=== PATIENT | female | born 1975 ===

== ENCOUNTER 2020-03-16 11:37 | Outpatient (REF) | payer OTHER, SELFPAY ==
--- NOTE | 2020-03-16 | US_ITS ---
EXAMINATION: US PELVIC, LIMITED/FOLLOW UP CLINICAL INFORMATION: Palpable lump epigastric/supraumbilical region. History of previous abdominoplasty procedure. COMPARISON: None TECHNIQUE: Grayscale and color imaging of the abdominal wall superior to inferior to the umbilicus using a linear and curved transducer. FINDINGS: No hernia is evident by ultrasound. No fluid collection is seen. There is irregularly-shaped hypoechoic soft tissue in the subcutaneous fat questionable for postsurgical changes. IMPRESSION: No hernia or fluid collection seen.
== END 2020-03-16 11:38 | disposition home or self-care (01) ==
LOC: HO.US 11:37
PROVIDERS: Visit Provider Internal Medicine
DX: K42.9 Umbilical hernia without obstruction or gangrene (principal)
CPT/HCPCS: 76857

== ENCOUNTER 2020-05-27 13:08 | Outpatient (REF) | payer OTHER, SELFPAY ==
--- NOTE | 2020-05-27 13:11 | CT_ITS ---
EXAMINATION: CT HEAD WITHOUT CONTRAST CLINICAL INFORMATION: Headaches. COMPARISON: Head CT from 07/21/2012. TECHNIQUE: Contiguous axial imaging was performed from the skull base to vertex without intravenous administration of contrast. This CT examination was performed using dose optimization techniques as appropriate, variously including the following: *Automated exposure control *Adjustment of mA and/or kV according to patient size (this includes techniques or standardized protocols for targeted exams where dose is matched to indication/reason for exam; i.e. extremities or head) *Use of iterative reconstruction technique DLP: 829 mGy-cm FINDINGS: There is no evidence of acute intracranial hemorrhage or territorial infarction. No abnormal mass effect or midline shift is seen. Lipscomb to white matter differentiation is well preserved. No extra-axial fluid collections are identified. The ventricles are normal in size. There is no abnormal attenuation within the brain parenchyma. The osseous structures and soft tissues are normal. The mastoid air cells are well aerated. There is minimal mucosal thickening in the left maxillary sinus. CT/CT head/brain wo con IMPRESSION: No acute intracranial pathology.
== END 2020-05-27 13:09 | disposition home or self-care (01) ==
LOC: HO.CT 13:08
PROVIDERS: Visit Provider Physician Assistant
DX: R51.9 Headache, unspecified (principal)
CPT/HCPCS: 70450

== ENCOUNTER 2020-07-15 15:02 | Outpatient (REF) | payer OTHER, SELFPAY ==
--- NOTE | ~2020-07-15 | MM_ITS ---
EXAMINATION: MM SCREENING DIGITAL BREAST TOMOSYNTHESIS, BILATERAL CLINICAL INFORMATION: Screening. Asymptomatic. The lifetime risk of breast cancer based on the Tyrer-Cuzick Model is 9%. COMPARISON: Mammography: 04/25/2019, 04/23/2018 TECHNIQUE: Digital breast tomosynthesis is performed in both the craniocaudal and mediolateral oblique views along with computer-aided detection (CAD). Synthesized 2D images are generated from the tomosynthesis. FINDINGS: There are scattered areas of fibroglandular density (ACR BI-RADS breast composition Category b). There is denser breast tissue composition in the bilateral outer quadrants. Scattered bilateral parenchymal asymmetries are stable. There is no developing density or interval mass or architectural abnormality. No abnormal calcifications. The axilla and skin contours are unremarkable. MM/MM tomosynthesis screening BI IMPRESSION: No mammographic evidence of malignancy. ASSESSMENT: BI-RADS 2: Benign RECOMMENDATION: Routine annual mammography screening. This patient's information was entered into a reminder system with a target due date for their next mammogram.
== END 2020-07-15 15:03 | disposition home or self-care (01) ==
LOC: HO.MAMMO 15:02
PROVIDERS: PCP Physician Assistant; Visit Provider Physician Assistant
DX: Z12.31 Encounter for screening mammogram for malignant neoplasm of breast (principal)
CPT/HCPCS: 77063; 77067

== ENCOUNTER 2020-12-07 10:12 | Outpatient (REF) | payer OTHER, SELFPAY ==
--- NOTE | ~2020-12-07 | US_ITS ---
EXAMINATION: US ABDOMEN COMPLETE CLINICAL INFORMATION: Cholesterolosis of the gallbladder. COMPARISON: Ultrasound abdomen most recent 01/13/2020 and 11/07/2018. TECHNIQUE: Real-time imaging of the abdominal viscera. FINDINGS: PANCREAS: Normal. ABDOMINAL AORTA: The proximal, mid, and distal segments are normal in caliber. INFERIOR VENA CAVA: Visualized portions are normal. LIVER: Liver echotexture is increased probably representing fatty infiltration. The liver is normal in size. The liver contour is normal. No focal hepatic lesion. There is no intrahepatic biliary duct dilatation seen. GALLBLADDER: There is a small 4 x 3 x 3 mm echogenic density adjacent to the gallbladder wall that does not shadow suggestive of a small polyp. This is similar to previous exams. The gallbladder is otherwise normal. COMMON BILE DUCT: Normal in caliber measuring 0.28 cm in diameter. RIGHT KIDNEY: Normal. No hydronephrosis. No renal calculi or focal parenchymal lesions. The kidney measures 12.5 cm in maximum dimension. LEFT KIDNEY: Normal. No hydronephrosis. No renal calculi or focal parenchymal lesions. The kidney measures 12.0 cm in maximum dimension. SPLEEN: Normal. The spleen measures 11.7 cm in maximum dimension. FREE FLUID: None. US/US abdomen complete IMPRESSION: Echogenic liver probably representing fatty infiltration. Stable small 4 mm gallbladder wall polyp.
== END 2020-12-07 10:13 | disposition home or self-care (01) ==
LOC: HO.HMGCX 10:12
PROVIDERS: PCP Internal Medicine; Visit Provider Surgery
DX: K82.4 Cholesterolosis of gallbladder (principal)
CPT/HCPCS: 76700

== ENCOUNTER 2021-02-08 14:13 | Outpatient (REF) | payer OTHER, SELFPAY ==
[2021-02-08 14:46] LABS: Appearance Urine CLEAR; Color Urine YELLOW; Glucose Urine UA NEG (NEG); Leukocyte Esterase Urine NEG (NEG); Nitrite Urine NEG (NEG); Urine Blood NEG (NEG); Urine Ketones NEG (NEG); Urine Protein NEG (NEG-TRACE)
== END 2021-02-08 14:14 | disposition home or self-care (01) ==
LOC: HO.LAB 14:13
PROVIDERS: PCP Physician Assistant; Visit Provider Internal Medicine
DX: R35.0 Frequency of micturition (principal)
CPT/HCPCS: 81003

== ENCOUNTER 2021-02-16 13:57 | Outpatient (REF) | payer OTHER, SELFPAY ==
[2021-02-16 14:55] LABS: Appearance Urine CLEAR; Color Urine YELLOW; Glucose Urine UA NEG (NEG); Leukocyte Esterase Urine NEG (NEG); Nitrite Urine NEG (NEG); PH 5.5 (5.0-8.0); Specific Gravity - Urine 1.025 (1.005-1.025); Urine Blood NEG (NEG); Urine Ketones NEG (NEG); Urine Protein NEG (NEG-TRACE)
== END 2021-02-16 13:58 | disposition home or self-care (01) ==
LOC: HO.LAB 13:57
PROVIDERS: PCP Physician Assistant; Visit Provider Physician Assistant
DX: R30.0 Dysuria (principal); N39.0 Urinary tract infection, site not specified
CPT/HCPCS: 81003; 87086

== ENCOUNTER 2021-02-18 17:24 | Outpatient (REF) | payer OTHER, SELFPAY ==
[2021-02-19 15:24] LABS: BV Int Neg Control Negative (Negative); BV Int Pos Control Positive (Positive)
== END 2021-02-18 17:25 | disposition home or self-care (01) ==
LOC: HO.LNP 17:24
PROVIDERS: Visit Provider Nurse Practitioner Family
DX: N94.9 Unspecified condition associated with female genital organs and menstrual cycle (principal)
CPT/HCPCS: 87480; 87510; 87660

== ENCOUNTER 2021-03-15 08:36 | Outpatient (REF) | payer OTHER, SELFPAY ==
[2021-03-16 13:54] LABS: CT PCR NOT DETECTED (Not Detect.); NG PCR NOT DETECTED (Not Detect.)
[2021-03-17 09:04] LABS: BV Int Neg Control Negative (Negative); BV Int Pos Control Positive (Positive)
[2021-03-19 01:36] LABS: HPV mRNA E6/E7 rflx Not Detected (Not Detected)
== END 2021-03-15 08:37 | disposition home or self-care (01) ==
LOC: HO.LAB 08:36
PROVIDERS: PCP Internal Medicine; Visit Provider Advanced Practice Midwife
DX: Z01.419 Encounter for gynecological examination (general) (routine) without abnormal findings (principal); Z11.3 Encounter for screening for infections with a predominantly sexual mode of transmission; Z11.51 Encounter for screening for human papillomavirus (HPV); Z20.2 Contact with and (suspected) exposure to infections with a predominantly sexual mode of transmission; N94.9 Unspecified condition associated with female genital organs and menstrual cycle; R35.0 Frequency of micturition
CPT/HCPCS: 87480; 87491; 87510; 87591; 87624; 87660; 88142

== ENCOUNTER 2021-07-29 15:35 | Outpatient (REF) | payer OTHER, SELFPAY ==
--- NOTE | ~2021-07-29 | MM_ITS ---
EXAMINATION: MM SCREENING DIGITAL BREAST TOMOSYNTHESIS, BILATERAL CLINICAL INFORMATION: Screening. Asymptomatic. The lifetime risk of breast cancer based on the Tyrer-Cuzick Model is 9%. COMPARISON: Mammography: 07/15/2020, 04/25/2019, 04/23/2018 (new baseline). TECHNIQUE: Digital breast tomosynthesis is performed in both the craniocaudal and mediolateral oblique views along with computer-aided detection (CAD). Synthesized 2D images are generated from the tomosynthesis. Additional right MLO view is provided. FINDINGS: There are scattered areas of fibroglandular density (ACR BI-RADS breast composition Category b). There are no significant masses, abnormal calcifications, or other abnormalities. Breast tissue composition borders on heterogeneously dense in the upper outer quadrants. Parenchymal pattern is similar to prior studies. There is no developing density or architectural abnormality. The axilla and skin contours are unremarkable. No significant changes. MM/MM tomosynthesis screening BI IMPRESSION: No mammographic evidence of malignancy. ASSESSMENT: BI-RADS 1: Negative RECOMMENDATION: Routine annual mammography screening. This patient's information was entered into a reminder system with a target due date for their next mammogram.
== END 2021-07-29 15:36 | disposition home or self-care (01) ==
LOC: HO.MAMMO 15:35
PROVIDERS: PCP Physician Assistant; Visit Provider Physician Assistant
DX: Z12.31 Encounter for screening mammogram for malignant neoplasm of breast (principal)
CPT/HCPCS: 77063; 77067

== ENCOUNTER 2021-11-07 09:26 | Outpatient (REF) | payer OTHER, SELFPAY ==
--- NOTE | ~2021-11-07 | US_ITS ---
EXAMINATION: US ABDOMEN COMPLETE CLINICAL INFORMATION: Unspecified abdominal pain. COMPARISON: Ultrasound abdomen complete 12/07/2020 and 01/13/2020. TECHNIQUE: Real-time imaging of the abdominal viscera. FINDINGS: PANCREAS: Head and body the pancreas are normal. The tail is not well visualized due to bowel gas. ABDOMINAL AORTA: The proximal, mid, and distal segments are normal in caliber. INFERIOR VENA CAVA: Visualized portions are normal. LIVER: The liver is normal in size. The liver contour is normal. Liver echotexture is increased. No focal hepatic lesion. There is no intrahepatic biliary duct dilatation seen. GALLBLADDER: The gallbladder is normal in size. There is a 3 mm echogenic density adjacent to the gallbladder wall that does not move or shadow suggestive of a gallbladder wall polyp. This is unchanged No definite stones are seen. The gallbladder wall is normal. COMMON BILE DUCT: Normal in caliber measuring 0.3 cm in diameter. RIGHT KIDNEY: Normal. No hydronephrosis. No renal calculi or focal parenchymal lesions. The kidney measures 12.0 cm in maximum dimension. LEFT KIDNEY: Normal. No hydronephrosis. No renal calculi or focal parenchymal lesions. The kidney measures 12.0 cm in maximum dimension. SPLEEN: Normal. The spleen measures 12.0 cm in maximum dimension. FREE FLUID: None. US/US abdomen complete IMPRESSION: Echogenic liver suggestive of fatty infiltration. Stable small gallbladder wall polyp
[2021-11-07 10:49] LABS: Cholesterol 183 mg/dL; HDL Cholesterol 49 mg/dL; LDL Cholesterol Calculated 116 mg/dl; Triglycerides 90 mg/dL
[2021-11-07 11:13] LABS: TSH reflex Free T4 2.28 uIU/mL (0.32-4.0)
== END 2021-11-07 09:27 | disposition home or self-care (01) ==
LOC: HO.US 09:26
PROVIDERS: Absent Provider Nurse Practitioner Family; PCP Physician Assistant; Visit Provider Physician Assistant
DX: Z13.220 Encounter for screening for lipoid disorders (principal); Z13.29 Encounter for screening for other suspected endocrine disorder; R10.9 Unspecified abdominal pain
CPT/HCPCS: 36415; 76700; 80061; 84443

== ENCOUNTER → 2021-12-29 15:04 | Outpatient (BNVA) | payer OTHER, SELFPAY | PROVIDERS: PCP Physician Assistant | DX: R35.0 Frequency of micturition (principal); R80.9 Proteinuria, unspecified | CPT/HCPCS: 51798; 99202 ==

== ENCOUNTER 2022-03-31 09:42 | Outpatient (REF) | payer OTHER, SELFPAY ==
[2022-03-31 10:45] LABS: Estimated Average Glucose 123 mg/dL; Hemoglobin A1c % 5.9 %
[2022-03-31 10:45] LABS: Appearance Urine Hazy; Color Urine Yellow; Glucose Urine UA Negative (Negative); Leukocyte Esterase Urine Negative (Negative); Nitrite Urine Negative (Negative); Specific Gravity - Urine 1.025 (1.005-1.025); Urine Blood Negative (Negative); Urine Ketones Negative (Negative); Urine Protein Negative (Neg-Trace)
[2022-03-31 11:15] LABS: Creatinine Urine 101.25 mg/dL; Microalbum/Creatinine Ratio Ur 5.9 ug/mg cr; Total Protein Urine Random < 7 mg/dL (<12)
[2022-03-31 11:17] LABS: Alanine Aminotransferase 25 U/L (0-31); Albumin Level 4.4 g/dL (3.5-5.0); Alkaline Phosphatase 70 U/L (39-117); Aspartate Amino Transferase 18 U/L (5-31); Bilirubin Direct < 0.2 mg/dL (0.0-0.5); Bilirubin Total 0.4 mg/dL (0.0-1.0); Total Protein 7.2 g/dL (6.5-8.0)
[2022-03-31 11:18] LABS: Alanine Aminotransferase 25 U/L (0-31); Albumin Level 4.4 g/dL (3.5-5.0); Alkaline Phosphatase 69 U/L (39-117); Anion Gap 17 (12-20); Aspartate Amino Transferase 18 U/L (5-31); Bilirubin Total 0.4 mg/dL (0.0-1.0); Blood Urea Nitrogen 11 mg/dL (9-16); Calcium 9.3 mg/dL (8.4-10.2); Carbon Dioxide 24 mmol/L (22-29); Chloride 103 mmol/L (96-108); Cholesterol 198 mg/dL; Estimated Glomerular Filt Rate > 60; Glucose Fasting 111 mg/dL (60-99); HDL Cholesterol 54 mg/dL; LDL Cholesterol Calculated 117 mg/dl; Potassium 4.5 mmol/L (3.3-5.1); Sodium 139 mmol/L (135-145); Total Protein 7.3 g/dL (6.5-8.0); Triglycerides 138 mg/dL
[2022-03-31 11:33] LABS: HIV AB/AG Nonreactive (Nonreactive); HIV Num 1 0.09 S/CO (0.00-0.99)
[2022-03-31 11:38] LABS: Syphilis Screen Nonreactive (Nonreactive)
[2022-03-31 11:40] LABS: TSH reflex Free T4 1.74 uIU/mL (0.32-4.0)
[2022-03-31 12:44] LABS: CT PCR NOT DETECTED (Not Detect.); NG PCR NOT DETECTED (Not Detect.)
== END 2022-03-31 09:43 | disposition home or self-care (01) ==
LOC: HO.LAB 09:42
PROVIDERS: Absent Provider Internal Medicine Nephrology; PCP Physician Assistant; Visit Provider Physician Assistant
DX: Z13.220 Encounter for screening for lipoid disorders (principal); Z13.29 Encounter for screening for other suspected endocrine disorder; Z11.4 Encounter for screening for human immunodeficiency virus [HIV]; Z11.3 Encounter for screening for infections with a predominantly sexual mode of transmission; R73.09 Other abnormal glucose; Z20.2 Contact with and (suspected) exposure to infections with a predominantly sexual mode of transmission; R80.9 Proteinuria, unspecified
CPT/HCPCS: 36415; 80053; 80061; 80076; 81003; 82043; 83036; 84156; 84443; 86780; 87389; 87491; 87591

== ENCOUNTER → 2022-07-03 15:18 | Outpatient (BNVA) | payer OTHER, SELFPAY | PROVIDERS: PCP Physician Assistant; Visit Provider Nurse Practitioner Family | DX: R35.0 Frequency of micturition (principal) | CPT/HCPCS: 51798; 99212 ==

== ENCOUNTER 2022-07-09 22:13 | Emergency (ER) | payer OTHER, SELFPAY ==
[2022-07-09 22:29] VITALS: BP 127/88; PULSE 85; RESP 16; TEMP 36.7; O2SAT 98; BMI 30.8
--- NOTE | 2022-07-10 00:18 | PC.NURSE ---
pt not in waiting room.
[2022-07-10 00:19] LABS: Glucose, Whole Blood 100 mg/dL (60-115)
--- NOTE | 2022-07-10 00:24 | ED.GENADULT ---
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 Patient otherwise decline SOB, no chest pain. No weakness, no numbness. Related Data Home Medications Medication Instructions Recorded Confirmed No Known Home Meds 07/03/22 Allergies Allergy/AdvReac Type Severity Reaction Status Date / Time aspirin [ASPIRIN] Allergy Unknown SWELLING Verified 07/03/22 21:53 Review of Systems Review of Systems: All other systems are reviewed and are negative Constitutional: Reports as per HPI and Reports no additional constitutional complaints Eyes: Reports as per HPI and Reports no additional eye complaints Reports system reviewed and no additional complaints, except as documented Cardiovascular: Reports as per HPI and Reports no additional cardiovascular complaints Respiratory: Reports as per HPI and Reports no additional respiratory complaints Gastrointestinal: Reports as per HPI and Reports no additional gastrointestinal complaints Genitourinary: Reports no additional female genitourinary complaints Musculoskeletal: Reports no additional musculoskeletal complaints Skin/Breast: Reports system reviewed and no additional complaints, except as docu Psychiatric: Reports no additional psychiatric complaints Endocrine: Reports no additional endocrine complaints Hematologic/Lymphatic: Reports no additional hematologic/lymphatic complaints Allergic/Immunologic: Reports no additional allergic/immunologic complaints Reports system reviewed and no additional complaints, except as documented and Reports Abnormal speech present REPLACED BY [facility] Past Medical History Medical History delivery delivered Gallbladder polyp Proteinuria Urinary frequency Surgical History History of tubal ligation Family History Family History Mother Ovarian cancer Father Prostate cancer Social History Social History Housing: House Alcohol intake: never Patient Tobacco Use Status: Never used Tobacco Tobacco use type: Cigarette e-Cigarette/Vaping Use: Never Used Second Hand Smoke Exposure: No Advance Directives: No Current occupational status: employed 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 Blood pressure normal. Heart rate normal. Respiration rate normal. Temperature normal. Oxygen saturation normal. Appearance: Alert. Oriented X3. No acute distress. Head: Normal external exam. Normocephalic. Atraumatic. No Nielson signs noted. No raccoon eyes noted Eyes: PERRLA. EOMI. Conjunctiva and sclera normal. Eyelids normal. ENT: TM's Normal. Pharynx normal. Uvula midline. Moist mucous membranes. No trismus noted. No drooling noted. No muffled voice noted. Neck: Normal inspection. Neck supple. FROM. No adenopathy. Thyroid Normal. No meningeal signs. No neck mass noted. CVS: Normal heart rate and rhythm. Heart sound normal. No murmurs noted. Pulses normal throughout. Respiratory: No respiratory distress. Painless inspiration. Breath sounds normal. No wheezes/rales/rhonchi noted. Chest nontender. No accessory muscle usage noted or decreased air movement noted. Abdomen: Soft and nontender. Bowel sounds normal in all 4 quadrants. No distention noted. No organomegaly noted. No visible injury noted. Back: No CVA tenderness. Full range of motion noted. Skin: Skin warm and dry. Normal skin color. Normal skin turgor. No rashes/lesions/lacerations noted. Extremities: No lower extremity edema. Extremities exhibit normal range of motion. Extremities nontender. Neuro: Oriented X 3. Cranial nerve exam: II-XII are grossly intact No motor deficit. No sensory deficit. Reflexes normal. NIH Stroke Scale Time: 00:27 Level of Consciousness: Alert Level of Consciousness Questions: Answers both questions correctly Level of Consciousness Commands: Performs both tasks correctly Best Gaze: Normal Visual: No visual loss Facial Palsy: Normal Motor Arm (Right): No drift Motor Arm (Left): No drift Motor Leg (Right): No drift Motor Leg (Left): No drift Limb Ataxia: Absent Sensory: Normal Best Language: No aphasia Dysarthia: Normal Extinction and Inattention: No abnormality Score: 0 Course Course Course Narrative: 46-year-old female with nonspecific symptoms of heating sensation to the left foot and left upper extremities with the left ear, patient has normal neuro exam. Patient was told she is a prediabetic, otherwise healthy. In the ED blood glucose is 100, with unremarkable neuro exam will reassure and discharged. Medical Decision Making Differential Diagnosis Differential Diagnoses: The differential diagnosis associated with the presentation includes (Peripheral neuropathy, CVA, anxiety.) Lab Data MDM Lab Attestation statement: I reviewed the patient's lab results. Labs: Lab Results 07/10/22 Range/Units 00:15 POC Glucose 100 (60-115) mg/dL Discharge Plan Discharge Clinical Impression: Burning sensation of feet Patient Disposition: Home, Self-Care Instructions: Normal Exam (ED) Prescriptions: No Action No Known Home Meds Referrals: Rome Redmond PA-C [Primary Care Provider] -
== END 2022-07-10 01:01 | disposition home or self-care (01) ==
PROVIDERS: Emergency Provider Emergency Medicine; PCP Physician Assistant
DX: R20.8 Other disturbances of skin sensation (principal)
CPT/HCPCS: 82947; 99282

== ENCOUNTER 2022-07-14 11:12 | Outpatient (REF) | payer OTHER, SELFPAY ==
[2022-07-14 18:40] LABS: CT PCR NOT DETECTED (Not Detect.); NG PCR NOT DETECTED (Not Detect.)
[2022-07-15 12:26] LABS: BV Int Neg Control Negative (Negative); BV Int Pos Control Positive (Positive)
== END 2022-07-14 11:13 | disposition home or self-care (01) ==
LOC: HO.LNP 11:12
PROVIDERS: PCP Physician Assistant; Visit Provider Advanced Practice Midwife
DX: Z01.419 Encounter for gynecological examination (general) (routine) without abnormal findings (principal); Z87.898 Personal history of other specified conditions
CPT/HCPCS: 0353U; 81003; 87480; 87510; 87660

== ENCOUNTER 2022-07-19 16:47 | Outpatient (REF) | payer OTHER, SELFPAY ==
--- NOTE | ~2022-07-19 | XR_ITS ---
EXAMINATION: XR FOOT, LEFT CLINICAL INFORMATION: Pain COMPARISON: None TECHNIQUE: AP, lateral, and oblique views of the left foot. FINDINGS: The bones and soft tissues are normal. No fracture. Alignment is anatomic. Joint spaces are maintained. XR/XR foot LT min 3V IMPRESSION: Normal left foot.
[2022-07-19 19:01] LABS: Folate 10.5 ng/mL (> or = 4.0); Vitamin B12 580 pg/mL (200-900); Vitamin D 25-OH Total 23.4 ng/mL (>30)
== END 2022-07-19 16:48 | disposition home or self-care (01) ==
LOC: HO.LAB 16:47
PROVIDERS: PCP Physician Assistant; Visit Provider Nurse Practitioner Family
DX: B35.1 Tinea unguium (principal); M21.612 Bunion of left foot; M79.672 Pain in left foot
CPT/HCPCS: 36415; 73630; 82306; 82607; 82746

== ENCOUNTER 2022-12-19 14:17 | Outpatient (AMB) | payer OTHER, SELFPAY ==
[2022-12-19 14:19] VITALS: BP 110/80; PULSE 90; O2SAT 98; BMI 30.5
--- NOTE | 2022-12-19 14:19 | MHC.PC.OV ---
Vital Signs 12/19/22 14:19 Height 5 ft 7 in Weight 195 lb BMI 30.5 BP 110/80 Blood Pressure Location Lt brachial Position Sitting Pulse 90 Pulse Source Pulse Oximeter Temp Source Skin Pulse Oximetry (%) 98 Oxygen Delivery Method Room Air Intake Visit Reasons: medical issues Intake Note: pt states rash all over body X3days Finished Stock Inspector Required: Yes Finished Stock Inspector Language: Sinhala Allergies aspirin [ASPIRIN] Allergy (Unknown, Verified 12/19/22 14:36) SWELLING Medication List - Last Reconciled 12/19/22 by Rome Redmond PA-C cholecalciferol (vitamin D3) 25 mcg PO DAILY Tobacco use date assessed: 12/19/22 Dental Screening Dental Screen Date: 12/19/22 HPI medical issues HPI Details Patient is a 47-year-old female here today for a problem visit. Has multiple concerns today She reports having a rash all over body over the last three days. She does admit to having a new soap that she has been using which may be a likely cause of her rash over torso and arms. She has not tried any [id number] Benadryl at this time. She also reports having left toe pain and has been told she has a left-sided bunion. She wants to see a electrical designer drafter for evaluation of possible treatment. Patient also has history of impaired glucose metabolism and most recent A1c of 5.9. She does admit her diet has been poor she does not regularly exercise. Will recheck fasting blood sugar and A1c for for upcoming annual physical. 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 How often do you have a drink containing alcohol?: Never 2. How many drinks containing alcohol do you have on a typical day when you are drinking?: 1 or 2 (0) 3. How often do you have six or more drinks on one occasion?: Never Total Score: 0 Score Reviewed/Action Taken: No ABDOULAYE-7 AMB Questionnaire ABDOULAYE-7 Date ABDOULAYE - 7 assessed: 07/19/22 Source: Developed by Drs. Rocco Velasquez, Isi Rodriguez, Arian Mehta and colleagues, with an educational marsha from [employer]. Review of Systems Const Denies headache(s) Eyes Denies loss of vision ENT Denies vertigo, Denies dizziness, Denies headache(s) and Denies sore throat Card Denies chest pain, Denies leg edema and Denies lightheadedness Resp Denies cough, Denies hemoptysis and Denies wheezing GI Denies abdominal pain, Denies melena, Denies constipation, Denies diarrhea and Denies vomiting Denies urinary frequency, Denies dysuria and Denies urinary urgency Musc Denies arthralgias, Denies joint swelling, Denies numbness and Denies tingling Neuro Denies Abnormal speech present, Denies behavioral changes, Denies vertigo, Denies dizziness, Denies headache(s), Denies loss of vision, Denies memory loss, Denies numbness and Denies tingling Psych Denies anxiety, Denies behavioral changes, Denies depression, Denies memory loss and Denies panic attacks Aditya/Lymph Denies easy bleeding and Denies easy bruising Aller/Immun Denies wheezing Physical exam (Primary Care) Vital Signs: Last Vital Signs Pulse 90 12/19/22 14:19 BP 110/80 12/19/22 14:19 Pulse Ox 98 12/19/22 14:19 Oxygen Delivery Method Room Air 12/19/22 14:19 BMI result Body Mass Index 30.5 BMI Assessment/Plan discussion: High Tobacco/Smoking Status: Tobacco use Status Tobacco use date assessed 12/19/22 12/19/22 14:20 Patient Tobacco Use Status Never used Tobacco 12/19/22 14:20 Tobacco use type Cigarette 12/19/22 14:20 e-Cigarette/Vaping Use Never Used 12/19/22 14:20 Thrive Assessment: Date of Thrive Assessment Date Thrive assessed 07/19/22 12/19/22 14:20 Const Other: obese General: healthy appearing, no acute distress, alert and awake Nutritional Appearance: well nourished Orientation/consciousness: oriented to person, oriented to place and oriented to time HENMT Ears: TM's normal bilaterally General nose exam: Normal nasal mucous membranes and turbinates present Eyes Conjunctivae: conjunctivae normal Sclerae: sclerae normal Pupils: Equal, round and reactive pupils present Neck Neck: Yes no lymphadenopathy and Yes no JVD Thyroid: Thyroid normal Carotids: no bruits Resp Effort & Inspection: normal respiratory effort and not tachypneic Auscultation: no crackles, no rales, no rhonchi and no wheezes Cardio Rate: regular rate Rhythm: regular rhythm Heart sounds: no murmurs and normal S1 and S2 GI Palpation (GI): Soft to palpation, nontender, no hepatomegaly and no splenomegaly Auscultation: normal bowel sounds Skin Other: PAPULAR RASH NOTED OVER TORSO AND UPPER EXTREMITIES General skin exam: dry skin Neuro General: oriented to person, oriented to place and oriented to time Cranial nerves: Yes Equal, round and reactive pupils present Speech: No Abnormal speech present Gait exam (Neuro): Normal gait present Motor exam (neuro): no tremor noted Extrem Right upper extremity: full ROM Left upper extremity: full ROM Right lower extremity: full ROM; no edema Left lower extremity: full ROM; no edema Psych Mental Status: mental status grossly normal Speech and movement: Normal speech and movement present Affect: normal affect Attitude: cooperative Thought process: Normal thought process present Assessment and Plan Assessment & Plan (1) Contact dermatitis: Code(s): L25.9 - Unspecified contact dermatitis, unspecified cause Qualifiers: Contact dermatitis type: allergic Contact dermatitis trigger: cosmetics Qualified Code(s): L23.2 - Allergic contact dermatitis due to cosmetics Plan: Patient's contact dermatitis likely secondary to new soap she is using. Advised to discontinue the use of this soap and use Benadryl at night. Will supply with topical steroid to use the most problematic skin areas. (2) Bunion of left foot: Code(s): M21.612 - Bunion of left foot Plan: Patient does have a small angulation of the left great toe, does often if pain in this toe. Will provide referral to Podiatry for evaluation (3) Impaired glucose metabolism: Code(s): R73.09 - Other abnormal glucose Plan: Patient has a history of impaired glucose metabolism. Most recent A1c of 5.9 and fasting blood sugar 111. She does admit her diet has been poor as of late. Will check fasting blood sugar and A1c (4) Breast cancer screening: Code(s): Z12.39 - Encounter for other screening for malignant neoplasm of breast Qualifiers: Breast cancer screening modality: mammogram Qualified Code(s): Z12.31 - Encounter for screening mammogram for malignant neoplasm of breast Plan: Patient willing to get him mammogram (5) Colon cancer screening: Code(s): Z12.11 - Encounter for screening for malignant neoplasm of colon Plan: Patient willing to get colonoscopy Orders: Orders Vitamin D 25-OH Total Today R79.89 - Other specified abnormal findings of blood chemistry Comprehensive [place]. Panel Fast Today R73.09 - Other abnormal glucose Complete Blood Count no Diff Today R73.09 - Other abnormal glucose CT NG by PCR Today Z11.3 - Encounter for screening for infections with a predominantly sexual mode of transmission, Z20.2 - Contact with and (suspected) exposure to infections with a predominantly sexual mode of transmission HIV Ab/Ag Today Z11.3 - Encounter for screening for infections with a predominantly sexual mode of transmission Syphilis Screen Today Z11.3 - Encounter for screening for infections with a predominantly sexual mode of transmission MM screening mammo BI Today Z12.31 - Encounter for screening mammogram for malignant neoplasm of breast Hemoglobin A1c Today R73.09 - Other abnormal glucose Referrals Podiatry Referral M21.612 - Bunion of left foot Gastroenterology Referral Z12.11 - Encounter for screening for malignant neoplasm of colon Medications: New triamcinolone acetonide 0.1% 1 appl topical DAILY 30 grams 0RF 30 days L23.2 - Allergic contact dermatitis due to cosmetics Coding Level of Care Code Est Pt Level 4 (76814) Diagnoses Contact dermatitis L23.2 Contact dermatitis type: allergic Contact dermatitis trigger: cosmetics Bunion of left foot M21.612 Impaired glucose metabolism R73.09 Breast cancer screening Z12.31 Breast cancer screening modality: mammogram Colon cancer screening Z12.11
== END 2022-12-19 15:04 | disposition home or self-care (01) ==
PROVIDERS: PCP Physician Assistant; Visit Provider Physician Assistant
DX: L23.2 Allergic contact dermatitis due to cosmetics (principal); M21.612 Bunion of left foot; R73.09 Other abnormal glucose; Z12.31 Encounter for screening mammogram for malignant neoplasm of breast; Z12.11 Encounter for screening for malignant neoplasm of colon
CPT/HCPCS: 99214

== ENCOUNTER 2022-12-19 15:21 | Outpatient (REF) | payer OTHER, SELFPAY ==
[2022-12-19 17:16] LABS: Hematocrit 34.4 % (37.0-47.0); Hemoglobin 10.5 g/dl (12.0-16.0); Mean Corpuscular HGB Conc 30.5 g/dl (31.0-35.0); Mean Corpuscular Hemoglobin 23.4 pg (27.0-33.0); Mean Corpuscular Volume 76.8 fL (80.0-98.0); Mean Platelet Volume 10.8 fL (9.4-12.3); Platelet Count 303 X10*3/uL (160-400); Red Blood Count 4.48 X10*6/uL (4.20-5.50); Red Cell Distribution Width 16.4 % (11.0-16.0); White Blood Count 10.2 X10*3/uL (4.8-10.8)
[2022-12-19 19:33] LABS: Alanine Aminotransferase 19 U/L (0-31); Albumin Level 4.3 g/dL (3.5-5.0); Alkaline Phosphatase 68 U/L (39-117); Anion Gap 14 (12-20); Aspartate Amino Transferase 13 U/L (5-31); Bilirubin Total 0.2 mg/dL (0.0-1.0); Blood Urea Nitrogen 7 mg/dL (9-16); Calcium 9.1 mg/dL (8.4-10.2); Carbon Dioxide 24 mmol/L (22-29); Chloride 106 mmol/L (96-108); Estimated Glomerular Filt Rate > 60; Glucose Fasting 122 mg/dL (60-99); Potassium 3.9 mmol/L (3.3-5.1); Sodium 140 mmol/L (135-145); Total Protein 7.6 g/dL (6.5-8.0)
[2022-12-19 19:39] LABS: Vitamin D 25-OH Total 24.6 ng/mL (>30)
[2022-12-20 08:31] LABS: HIV AB/AG Nonreactive (Nonreactive); HIV Num 1 0.06 S/CO (0.00-0.99)
[2022-12-20 08:56] LABS: Syphilis Screen Nonreactive (Nonreactive)
[2022-12-20 11:29] LABS: CT PCR NOT DETECTED (Not Detect.); NG PCR NOT DETECTED (Not Detect.)
== END 2022-12-19 15:22 | disposition home or self-care (01) ==
LOC: HO.LAB 15:21
PROVIDERS: PCP Physician Assistant; Visit Provider Physician Assistant
DX: Z11.4 Encounter for screening for human immunodeficiency virus [HIV] (principal); Z11.3 Encounter for screening for infections with a predominantly sexual mode of transmission; R73.09 Other abnormal glucose; Z20.2 Contact with and (suspected) exposure to infections with a predominantly sexual mode of transmission; R79.89 Other specified abnormal findings of blood chemistry
CPT/HCPCS: 0353U; 80053; 82306; 85027; 86780; 87389

== ENCOUNTER 2022-12-24 09:43 | Emergency (ER) | payer OTHER, SELFPAY ==
--- NOTE | 2022-12-24 | ECG_ITS ---
Test Reason : tachycardia Blood Pressure : / mmHG Vent. Rate : 121 BPM Atrial Rate : 121 BPM P-R Int : 144 ms QRS Dur : 094 ms QT Int : 332 ms P-R-T Axes : 044 021 033 degrees QTc Int : 471 ms Sinus tachycardia Possible Left atrial enlargement Nonspecific ST abnormality Abnormal ECG When compared with ECG of 23-OCT-2014 18:26, No significant change was found Referred By: Laurel Mendez Electronically Signed By:YAMILET PAYAN
--- NOTE | ~2022-12-24 | XR_ITS ---
EXAMINATION: XR CHEST CLINICAL INFORMATION: Reason for Exam Tachycardia, difficulty swallowing COMPARISON: Chest radiograph 10/23/2014 TECHNIQUE: 2 views of the chest FINDINGS: Lines and tubes: EKG leads overlie the patient. Clear lungs. No pleural effusion. No pneumothorax. Normal cardiomediastinal silhouette. XR/XR chest 2V IMPRESSION: * Clear lungs.
[2022-12-24 09:45] VITALS: BP 138/75; PULSE 133; RESP 18; TEMP 36.6; O2SAT 97; BMI 31.1
--- NOTE | 2022-12-24 10:05 | ED.ARRPALP ---
HPI - Arrhythmia/Palpitations General Chief Complaint: Arrhythmia/Palpitations Stated Complaint: Fast heart rate/SOB/Rash Time Seen by Provider: 12/24/22 09:50 Source: patient Mode of arrival: ambulatory History of Present Illness HPI narrative: 47-year-old female who presents with 1 week of rash that started after using a new soap, she was seen by her primary care afterwards and instructed to stop using the soap which she has done but has continued to use other lotion products and states that the rash is mildly itchy, denies any hiking/camping/situations where she may have been exposed to a tick, she denies any fevers, chills, shortness of breath, nausea, vomiting, abdominal pain. Patient denies any dysuria as well. Patient reports that the rash started prior to her initiating iron supplementation and that this morning she woke up and felt that her heart was racing. Patient does endorse that she has noticed her heart rate has been on average higher than usual, she does report known anemia but denies heavy periods but states they do last for 6 days. Related Data Previous Rx's Medication Instructions Recorded cholecalciferol (vitamin D3) 25 25 mcg PO DAILY #90 tabs 07/28/22 mcg (1,000 unit) tablet triamcinolone acetonide 0.1 % 1 appl topical DAILY 30 days #30 12/19/22 topical cream grams ferrous fumarate 325 mg (106 mg 325 mg PO DAILY 30 days #30 tabs 12/20/22 iron) tablet (Ferretts) Allergies Allergy/AdvReac Type Severity Reaction Status Date / Time aspirin [ASPIRIN] Allergy Unknown SWELLING Verified 12/24/22 09:48 Review of Systems Review of Systems: Pertinent positives and negatives as stated in HPI [facility] Past Medical History Source: nursing notes reviewed Medical History Bunion of left foot delivery delivered Gallbladder polyp Proteinuria Urinary frequency Surgical History History of tubal ligation Family History Family History Mother Ovarian cancer Father Prostate cancer Social History Social History Housing: House Alcohol intake: never Patient Tobacco Use Status: Never used Tobacco Tobacco use type: Cigarette Smoked in Last 30 Days: No e-Cigarette/Vaping Use: Never Used Second Hand Smoke Exposure: No Advance Directives: No Advance Directives Information Provided: Yes Patient : No Current occupational status: employed 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 GENERAL: Well developed, well nourished, in no acute distress. HEAD: Normocephalic/atraumatic EYES: PERRLA, EOMI EARS: Ext canals without abnormality NOSE: Nares patent bilateral OROPHARYNX: no oral lesions noted, posterior pharynx clear NECK: Supple, no adenopathy LUNGS: Normal breath sounds. No adventitious sounds or accessory muscle use. SpO2<97> CARDIOVASCULAR: Regular rate and rhythm without noted murmurs ABDOMEN: Soft, non-tender, non-distended with bowel sounds. MUSCULOSKELETAL: No tenderness, deformities, or effusions noted on gross inspection. EXTREMITIES: No cyanosis, clubbing or edema. SKIN: Inspection of the skin reveals no rashes, +pallor NEUROLOGIC: Alert and oriented x 4. Strength and sensation to light touch were grossly intact x 4. Medications Administered Discontinued Medications Generic Name Dose Route Start Last Admin Trade Name Viniciusq PRN Reason Stop Dose Admin Diphenhydramine HCl 50 mg 12/24/22 10:05 12/24/22 10:41 Diphenhydramine Hcl 50 Mg/Ml Vial IVPUSH 12/24/22 10:06 50 mg ONCE ONE Administration Sodium Chloride 1,000 mls @ 999 mls/hr 12/24/22 10:30 12/24/22 10:43 Ns IV 12/24/22 11:30 999 mls/hr .Q1H1M SANTI Administration Medical Decision Making Medical Decision Making [facility] Narrative: 1043: 47-year-old female with history and clinical presentation, DDX: Anxiety, anemia, dehydration, infection, electrolyte abnormality. Patient also endorses that she is under a lot of stress right now due to a thoughts about her daughter, a new medical condition for her mother. - CBC, CMP, TSH, UA, hcg 1L IVF, Type and Screen - 50mg Benadryl I reviewed all investigations, hematologic is sees are chronically stable with a microcytic anemia, no thrombocytopenia. Chemistry indices are grossly within normal limits, no FATUMA, no electrolyte abnormalities and TSH is within normal limits. Urinalysis is negative for infection or hematuria, beta hCG is negative. Tachycardia has significantly improved, patient is otherwise stable for discharge, rash has improved and she is instructed to follow-up with her primary care provider. Differential Diagnosis Differential Diagnoses: The differential diagnosis associated with the presentation includes Please see the discussion above Admission/Observation Consideration of admission/observation: Escalation of care including admission/observation considered Please see the discussion above Lab Data MDM Lab Attestation statement: I reviewed the patient's lab results. Please see the discussion above 12/24/22 10:41 12/24/22 10:41 Labs: Lab Results 12/24/22 12/24/22 12/24/22 Range/Units 10:41 10:41 10:41 WBC 9.3 (4.8-10.8) X10*3/uL RBC 4.29 (4.20-5.50) X10*6/uL Hgb 10.3 L (12.0-16.0) g/dl Hct 32.8 L (37.0-47.0) % MCV 76.5 L (80.0-98.0) fL MCH 24.0 L (27.0-33.0) pg MCHC 31.4 (31.0-35.0) g/dl RDW 16.5 H (11.0-16.0) % Plt Count 322 (160-400) X10*3/uL MPV 10.1 (9.4-12.3) fL Immature Gran % (Auto) 0.5 H (0.0-0.4) % Neut % (Auto) 67.9 (45-73) % Lymph % (Auto) 23.8 (20-40) % [place] % (Auto) 6.5 (2-11) % Eos % (Auto) 0.8 (0-4) % Baso % (Auto) 0.5 (0-2) % Lymph # (Auto) 2.2 (1.2-4.9) X10*3/uL [place] # (Auto) 0.6 (0.1-1.2) X10*3/uL Eos # (Auto) 0.1 (0.0-0.4) X10*3/uL Baso # (Auto) 0.1 (0.0-0.2) X10*3/uL Abs Immat Gran (auto) 0.05 H (0.00-0.03) X10*3/uL Absolute Neuts (auto) 6.3 (2.0-8.3) x10*3/uL Absolute Nucleated RBC 0.000 (0.0-0.012) X10*3/uL Nucleated RBC % (auto) 0.0 (0.0-0.2) /100WBC Sodium (135-145) mmol/L Potassium (3.3-5.1) mmol/L Chloride (96-108) mmol/L Carbon Dioxide (22-29) mmol/L Anion Gap (12-20) BUN (9-16) mg/dL Creatinine (0.5-1.4) mg/dL Estim Creat Clear Calc Estimated GFR Random Glucose (60-115) mg/dL Calcium (8.4-10.2) mg/dL Troponin I High Sens < 2.7 (<3.5-17.0) ng/L TSH (0.32-4.0) uIU/mL Beta HCG, Quant < 2 mIU/mL Urine Color Urine Appearance Urine pH (5.0-9.0) Ur Specific [place] (1.005-1.025) Urine Protein (Neg-Trace) mg/dL Urine Glucose (UA) (Negative) mg/dL Urine Ketones (Negative) mg/dL Urine Blood (Negative) Urine Nitrite (Negative) Ur Leukocyte Esterase (Negative) 12/24/22 12/24/22 Range/Units 12:33 16:16 WBC (4.8-10.8) X10*3/uL RBC (4.20-5.50) X10*6/uL Hgb (12.0-16.0) g/dl Hct (37.0-47.0) % MCV (80.0-98.0) fL MCH (27.0-33.0) pg MCHC (31.0-35.0) g/dl RDW (11.0-16.0) % Plt Count (160-400) X10*3/uL MPV (9.4-12.3) fL Immature Gran % (Auto) (0.0-0.4) % Neut % (Auto) (45-73) % Lymph % (Auto) (20-40) % [place] % (Auto) (2-11) % Eos % (Auto) (0-4) % Baso % (Auto) (0-2) % Lymph # (Auto) (1.2-4.9) X10*3/uL [place] # (Auto) (0.1-1.2) X10*3/uL Eos # (Auto) (0.0-0.4) X10*3/uL Baso # (Auto) (0.0-0.2) X10*3/uL Abs Immat Gran (auto) (0.00-0.03) X10*3/uL Absolute Neuts (auto) (2.0-8.3) x10*3/uL Absolute Nucleated RBC (0.0-0.012) X10*3/uL Nucleated RBC % (auto) (0.0-0.2) /100WBC Sodium 139 (135-145) mmol/L Potassium 3.8 (3.3-5.1) mmol/L Chloride 107 (96-108) mmol/L Carbon Dioxide 19 L (22-29) mmol/L Anion Gap 17 (12-20) BUN 8 L (9-16) mg/dL Creatinine 0.69 (0.5-1.4) mg/dL Estim Creat Clear Calc 114.6 Estimated GFR > 60 Random Glucose 122 H (60-115) mg/dL Calcium 9.1 (8.4-10.2) mg/dL Troponin I High Sens (<3.5-17.0) ng/L TSH 1.86 (0.32-4.0) uIU/mL Beta HCG, Quant mIU/mL Urine Color Yellow Urine Appearance Clear Urine pH 5.5 (5.0-9.0) Ur Specific [place] 1.025 (1.005-1.025) Urine Protein Negative (Neg-Trace) mg/dL Urine Glucose (UA) Negative (Negative) mg/dL Urine Ketones Negative (Negative) mg/dL Urine Blood Negative (Negative) Urine Nitrite Negative (Negative) Ur Leukocyte Esterase Negative (Negative) Independent Interpretation I performed an independent interpretation of an: EKG Interpretation: Sinus tachycardia, HR-121, no STEMI, MI/QRS/QTC is within normal limits. Radiology Impression Radiologist Impression: No pneumonia and otherwise my interpretation is in agreement with radiology's impression. External Record Review External record reviewed: Outpatient record and Prior outpatient labs Critical Care Time Critical Care Time Critical Care Time: Yes Total Critical Care Time: 30 Attestation: I personally attest to this time spent taking care of the patient. Discharge Plan Discharge Clinical Impression: Palpitations, Urticaria Patient Disposition: Home, Self-Care Instructions: Heart Palpitations (ED), Urticaria (ED) Additional Instructions: 1. I recommend that you stick to no dye, no perfume lotions, soaps. 2. Please follow-up with your primary care provider for further evaluation regarding your palpitations. 3. Continue to drink plenty of water. Take [id number] Benadryl as needed for any recurrence of the rash. Return to the ER for any worsening symptoms. Prescriptions: No Action cholecalciferol (vitamin D3) 25 mcg (1,000 unit) tablet 25 mcg PO DAILY Qty: 90 0RF Ferretts 325 mg (106 mg iron) tablet 325 mg PO DAILY 30 Days Qty: 30 2RF triamcinolone acetonide 0.1 % cream 1 appl topical DAILY 30 Days Qty: 30 0RF Referrals: Rome Redmond PA-C [Primary Care Provider] -
[2022-12-24] MEDS: diphenhydrAMINE HCL 50 MG/ML VIAL IVPUSH (10:41)
[2022-12-24] MEDS: 0.9 % Sodium Chloride 1,000 ML 999 ML IV (10:43)
[2022-12-24 10:47] LABS: MANUAL DIFF FLAG NO
[2022-12-24 10:49] LABS: Basophils Absolute Auto 0.1 X10*3/uL (0.0-0.2); Basophils Percent Auto 0.5 % (0-2); Eosinophils Absolute Auto 0.1 X10*3/uL (0.0-0.4); Eosinophils Percent Auto 0.8 % (0-4); Hematocrit 32.8 % (37.0-47.0); Hemoglobin 10.3 g/dl (12.0-16.0); Imm Gran Abs Auto 0.05 X10*3/uL (0.00-0.03); Imm Gran Pct Auto 0.5 % (0.0-0.4); Lymphocytes Absolute Auto 2.2 X10*3/uL (1.2-4.9); Lymphocytes Percent Auto 23.8 % (20-40); Mean Corpuscular HGB Conc 31.4 g/dl (31.0-35.0); Mean Corpuscular Volume 76.5 fL (80.0-98.0); Mean Platelet Volume 10.1 fL (9.4-12.3); Monocytes Absolute Auto 0.6 X10*3/uL (0.1-1.2); Monocytes Percent Auto 6.5 % (2-11); Neutrophils Absolute Auto 6.3 x10*3/uL (2.0-8.3); Neutrophils Percent Auto 67.9 % (45-73); Platelet Count 322 X10*3/uL (160-400); Red Blood Count 4.29 X10*6/uL (4.20-5.50); Red Cell Distribution Width 16.5 % (11.0-16.0); White Blood Count 9.3 X10*3/uL (4.8-10.8)
--- NOTE | 2022-12-24 11:12 | PC.NURSE ---
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 pt states she started a new soap and has seen her PCP prior to coming. pt verbalizes she stopped using the soap but started a new one. pt denies n/v/d but states chest pain and palpitations. pt also verbalizes that she is feeling anxious d/t daughter passing away recently, mother being sick, and sister having health problems. 20gIV placed in the left Ac without complications, IVF hung and medication administered per provider order.
[2022-12-24 11:25] LABS: HCG Quantitative < 2 mIU/mL; Troponin-I High Sensitivity < 2.7 ng/L (<3.5-17.0)
[2022-12-24 11:41] VITALS: BP 131/68; PULSE 100; RESP 18; TEMP 36.9; O2SAT 97
--- NOTE | 2022-12-24 11:44 | PC.NURSE ---
a&ox3, vss aside from tachycardia, sinus tachycardia on the library monitor. IVF still up and running. pt denies itchiness or pain where the rash is located. pt states she feels sleepy post benadryl administration. resting comfortably with the lights dimmed. call machado placed within reach.
[2022-12-24 12:50] LABS: Anion Gap 17 (12-20); Blood Urea Nitrogen 8 mg/dL (9-16); Calcium 9.1 mg/dL (8.4-10.2); Carbon Dioxide 19 mmol/L (22-29); Chloride 107 mmol/L (96-108); Creatinine Clr Calc Pharmacy 114.6; Estimated Glomerular Filt Rate > 60; Glucose Random 122 mg/dL (60-115); Potassium 3.8 mmol/L (3.3-5.1); Sodium 139 mmol/L (135-145)
[2022-12-24 13:26] VITALS: BP 121/80; PULSE 95; RESP 16; TEMP 37; O2SAT 99
--- NOTE | 2022-12-24 13:28 | PC.NURSE ---
pt a&ox3, vss, pt fluctuating from nsr to sinus tachy on the radiographer cardiac catheterization. pt states that her chest still feels heavy and that palpitations in her chest become more prominent upon exertion. 0/10 pain noted upon verbalization. pt back from restroom, IVF still running, resting comfortably in bed, call machado placed within reach.
[2022-12-24 13:43] LABS: Thyroid Stimulating Hormone 1.86 uIU/mL (0.32-4.0)
[2022-12-24 16:24] LABS: Appearance Urine Clear; Color Urine Yellow; Glucose Urine UA Negative (Negative); Leukocyte Esterase Urine Negative (Negative); Nitrite Urine Negative (Negative); PH 5.5 (5.0-9.0); Specific Gravity - Urine 1.025 (1.005-1.025); Urine Blood Negative (Negative); Urine Ketones Negative (Negative); Urine Protein Negative (Neg-Trace)
== END 2022-12-24 16:55 | disposition home or self-care (01) ==
PROVIDERS: Emergency Provider Student in an Organized Health Care Education/Training Program; PCP Physician Assistant
DX: R00.2 Palpitations (principal); L50.0 Allergic urticaria; Z79.899 Other long term (current) drug therapy
CPT/HCPCS: 36415; 71046; 80048; 81003; 84443; 84484; 84702; 85025; 93005; 96361; 96374; 99284; 99285; J1200

== ENCOUNTER → 2022-12-24 09:56 | Outpatient (BNV) | payer OTHER, SELFPAY | PROVIDERS: Emergency Provider Student in an Organized Health Care Education/Training Program; PCP Physician Assistant; Visit Provider Internal Medicine | DX: R00.0 Tachycardia, unspecified (principal); R94.31 Abnormal electrocardiogram [ECG] [EKG] | CPT/HCPCS: 93010 ==

== ENCOUNTER 2022-12-26 10:05 | Emergency (ER) | payer OTHER, SELFPAY ==
[2022-12-26 10:20] VITALS: BP 149/95; PULSE 101; RESP 17; TEMP 36.3; O2SAT 98; BMI 30.9
[2022-12-26 10:50] VITALS: BP 155/87; PULSE 95; RESP 18; TEMP 36.7; O2SAT 96
--- NOTE | 2022-12-26 11:07 | ECG_ITS ---
Test Reason : CP Blood Pressure : / mmHG Vent. Rate : 093 BPM Atrial Rate : 093 BPM P-R Int : 138 ms QRS Dur : 096 ms QT Int : 378 ms P-R-T Axes : 046 013 027 degrees QTc Int : 469 ms Normal sinus rhythm Possible Left atrial enlargement Borderline ECG When compared with ECG of 24-DEC-2022 09:56, No significant change was found Referred By: Haider Chavez Electronically Signed By:YAMILET PAYAN
[2022-12-26] MEDS: ondansetron HCL 4 MG/2 ML VIAL IVPUSH ×2 (11:49→14:32)
[2022-12-26] MEDS: 0.9 % Sodium Chloride 1,000 ML 999 ML IV (11:49)
[2022-12-26 11:59] LABS: MANUAL DIFF FLAG NO
[2022-12-26 12:01] LABS: Basophils Percent Auto 0.2 % (0-2); Hematocrit 34.3 % (37.0-47.0); Hemoglobin 10.8 g/dl (12.0-16.0); Imm Gran Abs Auto 0.08 X10*3/uL (0.00-0.03); Imm Gran Pct Auto 0.6 % (0.0-0.4); Lymphocytes Absolute Auto 1.1 X10*3/uL (1.2-4.9); Lymphocytes Percent Auto 8.5 % (20-40); Mean Corpuscular HGB Conc 31.5 g/dl (31.0-35.0); Mean Corpuscular Hemoglobin 24.4 pg (27.0-33.0); Mean Corpuscular Volume 77.4 fL (80.0-98.0); Mean Platelet Volume 10.5 fL (9.4-12.3); Monocytes Absolute Auto 0.7 X10*3/uL (0.1-1.2); Monocytes Percent Auto 5.1 % (2-11); Neutrophils Absolute Auto 11.2 x10*3/uL (2.0-8.3); Neutrophils Percent Auto 85.6 % (45-73); Platelet Count 331 X10*3/uL (160-400); Red Blood Count 4.43 X10*6/uL (4.20-5.50); White Blood Count 13.1 X10*3/uL (4.8-10.8)
[2022-12-26 12:17] LABS: Anion Gap 17 (12-20); Blood Urea Nitrogen 7 mg/dL (9-16); Calcium 9.4 mg/dL (8.4-10.2); Carbon Dioxide 19 mmol/L (22-29); Chloride 109 mmol/L (96-108); Creatinine Clr Calc Pharmacy 109.5; Estimated Glomerular Filt Rate > 60; Glucose Random 137 mg/dL (60-115); Iron 213 mcg/dL (30-160); Percent Iron Saturation 52 % (15-50); Potassium 3.7 mmol/L (3.3-5.1); Sodium 141 mmol/L (135-145); Total Iron Binding Capacity 410 mcg/dL (228-428); Unsaturated Iron Binding 197 ug/dL
[2022-12-26 12:22] LABS: Troponin-I High Sensitivity < 2.7 ng/L (<3.5-17.0)
[2022-12-26 13:22] VITALS: BP 138/89; PULSE 97; RESP 16; TEMP 36.8; O2SAT 99
--- NOTE | 2022-12-26 13:58 | ED_ITS ---
HPI - General Adult General Chief complaint: General Medical Stated complaint: Dizziness/Nausea Time Seen by Provider: 12/26/22 10:38 Source: patient Mode of arrival: ambulatory Limitations: no limitations History of Present Illness HPI narrative: 47-year-old female with no major medical problems presents with palpitations, nausea, dizziness and generalized fatigue. This been going on for 3 days. The symptoms are moderate to severe in nature. There is no clear relieving or exacerbating features. She has had no fevers or chills. No diarrhea or constipation. She denies any chest pain. She denies any pleurisy. She has no cough or mucus production. Symptoms can be exacerbated by exertion. She has had no vomiting. There are no sick contacts again there is no chest pain therefore there is no radiating chest pain. She denies any abdominal pain or discomfort. Related Data Previous Rx's Medication Instructions Recorded cholecalciferol (vitamin D3) 25 25 mcg PO DAILY #90 tabs 07/28/22 mcg (1,000 unit) tablet triamcinolone acetonide 0.1 % 1 appl topical DAILY 30 days #30 12/19/22 topical cream grams ferrous fumarate 325 mg (106 mg 325 mg PO DAILY 30 days #30 tabs 12/20/22 iron) tablet (Ferretts) meclizine 25 mg tablet 25 mg PO BID PRN dizziness #10 tabs 12/26/22 ondansetron 4 mg disintegrating 4 mg PO Q8H PRN nausea and 12/26/22 tablet vomiting #10 tabs Allergies Allergy/AdvReac Type Severity Reaction Status Date / Time aspirin [ASPIRIN] Allergy Unknown SWELLING Verified 12/24/22 09:48 Review of Systems Review of Systems: CONSTITUTIONAL: Denies weight loss, fever and chills. HEENT: Denies changes in vision and hearing. RESPIRATORY: Denies SOB and cough. CV: + palpitations no CP. GI: Denies abdominal pain, + nausea, - vomiting and diarrhea. : Denies dysuria and urinary frequency. MSK: Denies myalgia and joint pain. SKIN: Denies rash and pruritus. NEUROLOGICAL: Denies headache and syncope. PSYCHIATRIC: Denies recent changes in mood. Denies anxiety and depression. All other ROS are negative unless in HPI PMFSH Past Medical History Medical History Bunion of left foot delivery delivered Gallbladder polyp Proteinuria Urinary frequency Surgical History History of tubal ligation Family History Family History Mother Ovarian cancer Father Prostate cancer Social History Social History Housing: House Alcohol intake: never Patient Tobacco Use Status: Never used Tobacco Tobacco use type: Cigarette e-Cigarette/Vaping Use: Never Used Second Hand Smoke Exposure: No Advance Directives: No Advance Directives Information Provided: No Current occupational status: employed 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 Cognitive needs: No Hearing needs: No Vision needs: No Physical Exam ED Vital Signs: Vital Signs - 24 hr 12/26/22 10:20 12/26/22 10:50 12/26/22 13:22 Temperature 97.4 F 98.0 F 98.2 F Pulse Rate 101 H 95 97 Respiratory Rate 17 18 16 Blood Pressure 149/95 H 155/87 H 138/89 Pulse Oximetry 98 96 99 Oxygen Delivery Method Room Air Room Air Room Air BMI result Body Mass Index 30.9 GEN: Well developed, no acute distress, alert, oriented HEENT: Normocephalic, atraumatic, normal external ears, nose appears normal, no oropharyngeal edema or exudates Eyes: Normal to appearance Neck: Supple, no lymphadenopathy Respiratory: Talks in complete sentences, no respiratory distress, clear to auscultation bilaterally Cardiovascular: Regular rate and rhythm, no murmurs rubs or gallops Abdomen: Soft, nontender, nondistended, no guarding, no rebound Back: No CVA tenderness Extremities: No clubbing cyanosis or edema Neurologic: No focal neurologic deficits, cranial nerves 2-12 intact, strength is 5/5 bilaterally Skin: No rash Course Course Course Narrative: It is 215. The workup is complete. Patient does have anemia but it is stable. Iron studies are unremarkable. She is currently on iron supplementation patient feels dizzy almost more like an unsteady gait rather than ligh theadedness. Although her anemia may be contributing to her symptoms. Patient also describes what sounds to be like more like vertigo. Will try Zofran and meclizine. She has a primary care visit later this afternoon. She is wondering if her blood pressure could also be contributing. Her blood pressure is certainly on the upper limits of normal and I would not address it at this time. I recommend she follow-up with her primary care doctor on this issue as well. Patient may benefit from a hematology consultation. Medications Administered Discontinued Medications Generic Name Dose Route Start Last Admin Trade Name Lizeth PRN Reason Stop Dose Admin Sodium Chloride 1,000 mls @ 999 mls/hr 12/26/22 11:15 12/26/22 13:11 Ns IV 12/26/22 12:15 Infused .Q1H1M SANTI Infusion Ondansetron HCl 4 mg 12/26/22 11:07 12/26/22 11:49 Ondansetron Hcl 4 Mg/2 Ml Vial IVPUSH 12/26/22 11:08 4 mg ONCE ONE Administration Medical Decision Making Medical Decision Making [facility] Narrative: Patient reports recent anemia. She is currently on iron supplementation. Her hemoglobin has been approximately 10-11. She describes dizziness, lightheadedness. She is on her period currently. Examination is benign. Will repeat laboratory testing to make sure there is no significant anemia or electrolyte abnormality. She has had no previous iron studies. Will order some iron studies, cardiac enzyme given the palpitations and discomfort of her chest. I doubt acute coronary syndrome. Will order an EKG you to rule out any acute, will place on a shelter monitor to monitor for any cardiac dysrhythmia. Differential diagnosis includes anemia, electrolyte abnormality, cardiac dysrhythmia, anxiety, stress Patient may warrant hospitalization for any significant acute abnormality noted however suspect most likely patient will be discharged home. Differential Diagnosis Differential Diagnoses: The differential diagnosis associated with the presentation includes (See above) Admission/Observation Consideration of admission/observation: Escalation of care including admission/observation considered Lab Data [facility] Lab Attestation statement: I reviewed the patient's lab results. 12/26/22 11:46 12/26/22 11:46 Labs: Lab Results 12/26/22 12/26/22 12/26/22 Range/Units 11:46 11:46 11:46 WBC 13.1 H (4.8-10.8) X10*3/uL RBC 4.43 (4.20-5.50) X10*6/uL Hgb 10.8 L (12.0-16.0) g/dl Hct 34.3 L (37.0-47.0) % MCV 77.4 L (80.0-98.0) fL MCH 24.4 L (27.0-33.0) pg MCHC 31.5 (31.0-35.0) g/dl RDW 17.0 H (11.0-16.0) % Plt Count 331 (160-400) X10*3/uL MPV 10.5 (9.4-12.3) fL Immature Gran % (Auto) 0.6 H (0.0-0.4) % Neut % (Auto) 85.6 H (45-73) % Lymph % (Auto) 8.5 L (20-40) % [place] % (Auto) 5.1 (2-11) % Eos % (Auto) 0.0 (0-4) % Baso % (Auto) 0.2 (0-2) % Lymph # (Auto) 1.1 L (1.2-4.9) X10*3/uL [place] # (Auto) 0.7 (0.1-1.2) X10*3/uL Eos # (Auto) 0.0 (0.0-0.4) X10*3/uL Baso # (Auto) 0.0 (0.0-0.2) X10*3/uL Abs Immat Gran (auto) 0.08 H (0.00-0.03) X10*3/uL Absolute Neuts (auto) 11.2 H (2.0-8.3) x10*3/uL Absolute Nucleated RBC 0.000 (0.0-0.012) X10*3/uL Nucleated RBC % (auto) 0.0 (0.0-0.2) /100WBC Sodium 141 (135-145) mmol/L Potassium 3.7 (3.3-5.1) mmol/L Chloride 109 H (96-108) mmol/L Carbon Dioxide 19 L (22-29) mmol/L Anion Gap 17 (12-20) BUN 7 L (9-16) mg/dL Creatinine 0.72 (0.5-1.4) mg/dL Estim Creat Clear Calc 109.5 Estimated GFR > 60 Random Glucose 137 H (60-115) mg/dL Calcium 9.4 (8.4-10.2) mg/dL Iron 213 H (30-160) mcg/dL TIBC 410 (228-428) mcg/dL % Saturation 52 H (15-50) % Unsat Iron Binding 197 ug/dL Troponin I High Sens < 2.7 (<3.5-17.0) ng/L Independent Interpretation I performed an independent interpretation of an: EKG (Normal sinus rhythm heart rate 93, normal intervals, no acute ST elevations depressions.) Tests considered The following testing was considered but not selected: Chest x-ray but no indication as she has no respiratory symptoms. Prescription Management I considered prescription management with: Pain Medication Chronic Conditions Patient?s care impacted by: Other (Anemia) Discharge Plan Discharge Clinical Impression: Dizziness, Anemia Patient Disposition: Home, Self-Care Instructions: Vertigo (ED), Lightheadedness (ED), Dizziness (ED), Anemia (ED) Prescriptions: New ondansetron 4 mg tablet,disintegrating 4 mg PO Q8H PRN (Reason: nausea and vomiting) Qty: 10 0RF meclizine 25 mg tablet 25 mg PO BID PRN (Reason: dizziness) Qty: 10 0RF No Action cholecalciferol (vitamin D3) 25 mcg (1,000 unit) tablet 25 mcg PO DAILY Qty: 90 0RF Ferretts 325 mg (106 mg iron) tablet 325 mg PO DAILY 30 Days Qty: 30 2RF triamcinolone acetonide 0.1 % cream 1 appl topical DAILY 30 Days Qty: 30 0RF Referrals: Arlet Campos MD [Physician] - Rome Redmond PA-C [Primary Care Provider] - 12/26/22 3:30 am
== END 2022-12-26 14:37 | disposition home or self-care (01) ==
PROVIDERS: Emergency Provider Emergency Medicine; PCP Physician Assistant
DX: R42 Dizziness and giddiness (principal); D64.9 Anemia, unspecified; Z79.899 Other long term (current) drug therapy
CPT/HCPCS: 36415; 80048; 83540; 84484; 85025; 93005; 96361; 96374; 96376; 99284; 99285; J2405

== ENCOUNTER → 2022-12-26 11:07 | Outpatient (BNV) | payer OTHER, SELFPAY | PROVIDERS: Emergency Provider Emergency Medicine; PCP Physician Assistant; Visit Provider Internal Medicine | DX: R07.9 Chest pain, unspecified (principal) | CPT/HCPCS: 93010 ==

== ENCOUNTER 2022-12-26 15:36 | Outpatient (AMB) | payer OTHER, SELFPAY ==
[2022-12-26 15:37] VITALS: BP 132/86; PULSE 101; O2SAT 96; BMI 30.7
--- NOTE | 2022-12-26 15:37 | A.OFFPC_ITS ---
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 Allergies aspirin [ASPIRIN] Allergy (Unknown, Verified 12/26/22 15:50) SWELLING Medication List - Last Reconciled 12/26/22 by WALLY Gusman cholecalciferol (vitamin D3) 25 mcg PO DAILY ferrous fumarate (Ferretts) 325 mg PO DAILY 30 days meclizine 25 mg PO BID PRN ondansetron 4 mg PO Q8H PRN triamcinolone acetonide 0.1% 1 appl topical DAILY 30 days Tobacco use date assessed: 12/26/22 Dental Screening Dental Screen Date: 12/26/22 [facility] 12/24/22 Heart Palpitations HPI Details Patient is a 47-year-old female who presents today to follow-up after [facility] visit 02/24/2023 due to palpitations and rash. Patient of CHAVA Redmond. Per ED notes: 47-year-old female who presents with 1 week of rash that started after using a new soap, she was seen by her primary care afterwards and instructed to stop using the soap which she has done but has continued to use other lotion products and states that the rash is mildly itchy, denies any hiking/camping/situations where she may have been exposed to a tick, she denies any fevers, chills, shortness of breath, nausea, vomiting, abdominal pain. Patient denies any dysuria as well. Patient reports that the rash started prior to her initiating iron supplementation and that this morning she woke up and felt that her heart was racing. Patient does endorse that she has noticed her heart rate has been on average higher than usual, she does report known anemia but denies heavy periods but states they do last for 6 days. 47-year-old female with history and clinical presentation, DDX: Anxiety, anemia, dehydration, infection, electrolyte abnormality. Patient also endorses that she is under a lot of stress right now due to a thoughts about her daughter, a new medical condition for her mother. - CBC, CMP, TSH, UA, hcg 1L IVF, Type and Screen - 50mg Benadryl I reviewed all investigations, hematologic is sees are chronically stable with a microcytic anemia, no thrombocytopenia. Chemistry indices are grossly within normal limits, no FATUMA, no electrolyte abnormalities and TSH is within normal limits. Urinalysis is negative for infection or hematuria, beta hCG is negative. Tachycardia has significantly improved, patient is otherwise stable for discharge, rash has improved and she is instructed to follow-up with her primary care provider. Was seen in [facility] today as well 12/26/2022. Per ED note: 47-year-old female with no major medical problems presents with palpitations, nausea, dizziness and generalized fatigue. This been going on for 3 days. The symptoms are moderate to severe in nature. There is no clear relieving or exacerbating features. She has had no fevers or chills. No diarrhea or constipation. She denies any chest pain. She denies any pleurisy. She has no cough or mucus production. Symptoms can be exacerbated by exertion. She has had no vomiting. There are no sick contacts again there is no chest pain therefore there is no radiating chest pain. She denies any abdominal pain or discomfort. Patient reports recent anemia. She is currently on iron supplementation. Her hemoglobin has been approximately 10-11. She describes dizziness, lightheadedness. She is on her period currently. Examination is benign. Will repeat laboratory testing to make sure there is no significant anemia or electrolyte abnormality. She has had no previous iron studies. Will order some iron studies, cardiac enzyme given the palpitations and discomfort of her chest. I doubt acute coronary syndrome. Will order an EKG you to rule out any acute, will place on a school lunch monitor to monitor for any cardiac dysrhythmia. The workup is complete. Patient does have anemia but it is stable. Iron studies are unremarkable. She is currently on iron supplementation patient feels dizzy almost more like an unsteady gait rather than lightheadedness. Although her anemia may be contributing to her symptoms. Patient also describes what sounds to be like more like vertigo. Will try Zofran and meclizine. She has a primary care visit later this afternoon. She is wondering if her blood pressure could also be contributing. Her blood pressure is certainly on the upper limits of normal and I would not address it at this time. I recommend she follow-up with her primary care doctor on this issue as well. Patient may benefit from a hematology consultation. Today, in the emergency department discharge diagnosis were dizziness and anemia and discharged home with Zofran and meclizine. She also was provided with referral to see Dr. Campos leader tier. Patient also reports some right-sided headache, no vision changes. She reports palpitations for the past 3 days that are random. She reports that rash is not improving, reports intermittent itching. No shortness of breath or chest pain. Reports maybe not eating enough today. 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 How often do you have a drink containing alcohol?: Never 2. How many drinks containing alcohol do you have on a typical day when you are drinking?: 1 or 2 (0) 3. How often do you have six or more drinks on one occasion?: Never Total Score: 0 Score Reviewed/Action Taken: No ABDOULAYE-7 AMB Questionnaire ABDOULAYE-7 Date ABDOULAYE - 7 assessed: 07/19/22 Source: Developed by Drs. Rocco Velasquez, Isi Rodriguez, Arian Mehta and colleagues, with an educational marsha from [employer]. Review of Systems Const Reports as per HPI, Denies body aches, Denies chills, Reports fatigue, Denies fever(s) and Reports headache(s) Eyes Denies change in vision ENT Reports dizziness (Intermittent), Denies otalgia, Reports headache(s), Denies nasal discharge, Denies sinus pain and Denies sore throat Card Reports as per HPI, Denies chest pain, Denies edema, Denies lightheadedness and Denies dyspnea Resp Denies cough, Denies dyspnea and Denies wheezing GI Denies constipation, Denies diarrhea, Reports nausea and Denies vomiting Denies dysuria Musc Denies myalgias Skin/Breast Reports rash Neuro Reports dizziness (Intermittent) and Reports headache(s) Endo Reports fatigue Aller/Immun Denies wheezing Physical exam (Primary Care) Vital Signs: Last Vital Signs Pulse 101 H 12/26/22 15:37 BP 132/86 12/26/22 15:37 Pulse Ox 96 12/26/22 15:37 Oxygen Delivery Method Room Air 12/26/22 15:37 BMI result Body Mass Index 30.7 Tobacco/Smoking Status: Tobacco use Status Tobacco use date assessed 12/26/22 12/26/22 15:39 Patient Tobacco Use Status Never used Tobacco 12/26/22 15:39 Tobacco use type Cigarette 12/26/22 15:39 e-Cigarette/Vaping Use Never Used 12/26/22 15:39 Thrive Assessment: Date of Thrive Assessment Date Thrive assessed 07/19/22 12/26/22 15:39 Const General: cooperative and no acute distress Orientation/consciousness: patient oriented x3 HENMT Head: Yes normocephalic and Yes atraumatic Ears: TM's normal bilaterally Face and sinus: Yes sinuses nontender Mouth: oropharynx normal and moist mucous membranes Throat: Yes posterior oropharynx normal Eyes General: appearance normal, both eyes and all related structures Pupils: Equal, round and reactive pupils present Neck Neck: Yes normal visual inspection, Yes full ROM and Yes no lymphadenopathy Resp Effort & Inspection: normal respiratory effort and able to speak in complete sentences Auscultation: clear to auscultation bilaterally, no crackles, no rales, no rhonchi and no wheezes Cardio Rate: regular rate Rhythm: regular rhythm Heart sounds: S1 normal heart sound present, S2 normal heart sound present and no murmurs GI Palpation (GI): Soft to palpation, not firm, nontender, no guarding, not rigid and no hepatosplenomegaly Auscultation: normal bowel sounds Skin Other: Slightly raised erythematous rash noted diameter 3-5 mm to arms, back, back legs, and abdomen, patient reports intermittent pruritus, moderate amount, no discharge Neuro General: patient oriented x3 and CN's II-XI intact bilaterally Cranial nerves: Yes Equal, round and reactive pupils present Gait exam (Neuro): Normal gait present Extrem General: Yes full ROM and No edema Assessment and Plan Assessment & Plan (1) Intermittent palpitations: Code(s): R00.2 - Palpitations Plan: Patient reports random intermittent palpitations for the past 3 days She is currently on iron for anemia, possibly related to mild anemia, will obtain Holter monitor as well Signs and symptoms reviewed when to notify provider or go to the emergency department Patient reports increased stress in her life recently (2) Pruritic erythematous rash: Code(s): L29.8 - Other pruritus Plan: Slightly raised erythematous rash noted diameter 3-5 mm to arms, back, back legs, and abdomen, patient reports intermittent pruritus, moderate amount, no discharge Will start on prednisone taper She can also try [id number] Benadryl 1 tablet 2 times a day as needed Will refer to an psychiatric assistant for allergy testing (3) Anemia: Code(s): D64.9 - Anemia, unspecified Plan: Continue iron supplementation Patient was referred to see Dr. Campos from emergency department Plan Keep appointment with PCP as scheduled or follow-up sooner as needed Signs and symptoms reviewed when to notify provider go to the emergency dep artment. Patient agreed with the plan. Orders: Orders ECG 3 day holter monitor Today R00.2 - Palpitations Referrals Allergy & Immunology Referral L29.8 - Other pruritus Medications: New prednisone Take 3 tablets for 3 days then, Take 2 tablets 3 days then, Take 1 tablet 3 days and stop 10 mg PO DAILY 18 tabs 0RF L29.8 - Other pruritus Coding Level of Care Code Est Pt Level 4 (85522) Diagnoses Intermittent palpitations R00.2 Pruritic erythematous rash L29.8 Anemia D64.9
== END 2022-12-26 16:28 | disposition home or self-care (01) ==
PROVIDERS: PCP Physician Assistant; Visit Provider Nurse Practitioner Family
DX: R00.2 Palpitations (principal); L29.8 Other pruritus; D64.9 Anemia, unspecified
CPT/HCPCS: 99214

== ENCOUNTER 2023-01-09 11:24 | Outpatient (REF) | payer OTHER, SELFPAY | END 2023-01-09 11:25 | disposition home or self-care (01) | LOC: HO.MAMMO 11:24 | PROVIDERS: Visit Provider Physician Assistant | DX: Z12.31 Encounter for screening mammogram for malignant neoplasm of breast (principal) | CPT/HCPCS: 77063; 77067 ==

== ENCOUNTER → 2023-01-09 11:30 | Outpatient (BNV) | payer OTHER, SELFPAY | PROVIDERS: Visit Provider Radiology Diagnostic Radiology | DX: Z12.31 Encounter for screening mammogram for malignant neoplasm of breast (principal) | CPT/HCPCS: 77063; 77067 ==

== ENCOUNTER 2023-01-24 09:51 | Outpatient (REF) | payer OTHER, SELFPAY ==
[2023-01-24 10:30] LABS: Hematocrit 37.7 % (37.0-47.0); Hemoglobin 11.9 g/dl (12.0-16.0); Mean Corpuscular HGB Conc 31.6 g/dl (31.0-35.0); Mean Corpuscular Hemoglobin 24.9 pg (27.0-33.0); Mean Corpuscular Volume 78.9 fL (80.0-98.0); Mean Platelet Volume 10.3 fL (9.4-12.3); Platelet Count 316 X10*3/uL (160-400); Red Blood Count 4.78 X10*6/uL (4.20-5.50); Red Cell Distribution Width 17.2 % (11.0-16.0); White Blood Count 7.1 X10*3/uL (4.8-10.8)
[2023-01-24 10:37] LABS: Estimated Average Glucose 114 mg/dL; Hemoglobin A1C 117.9078 umol/L; Hemoglobin A1c % 5.6 % (<6.0)
[2023-01-24 11:10] LABS: Iron 89 mcg/dL (30-160); Percent Iron Saturation 26 % (15-50); Total Iron Binding Capacity 342 mcg/dL (228-428); Unsaturated Iron Binding 253 ug/dL
[2023-01-24 11:22] LABS: Ferritin 35 ng/mL (10-250)
[2023-01-24 11:27] LABS: Vitamin D 25-OH Total 24.8 ng/mL (>30)
== END 2023-01-24 09:52 | disposition home or self-care (01) ==
LOC: HO.LAB 09:51
PROVIDERS: Nurse Practitioner Family; PCP Physician Assistant; Visit Provider Physician Assistant
DX: D50.9 Iron deficiency anemia, unspecified (principal); R73.09 Other abnormal glucose; E55.9 Vitamin D deficiency, unspecified
CPT/HCPCS: 36415; 82306; 82728; 83036; 83540; 85027

== ENCOUNTER → 2023-02-13 09:03 | Outpatient (REF) | payer OTHER, SELFPAY ==
--- NOTE | 2023-02-13 09:06 | HM_ITS ---
Conclusion: 1. Patient was monitored for total period of 2 days and 29 minutes 2. Baseline was normal sinus rhythm with average heart of 92 beats per minute 3. No significant pauses noted 4. No significant arrhythmias noted 5. No patient reported events MTDD
== END ==
LOC: HO.CARD 09:03
PROVIDERS: PCP Physician Assistant; Visit Provider Nurse Practitioner Family
DX: R00.2 Palpitations (principal)
CPT/HCPCS: 93225

== ENCOUNTER → 2023-02-13 09:06 | Outpatient (BNV) | payer OTHER, SELFPAY | PROVIDERS: PCP Physician Assistant; Visit Provider Internal Medicine Cardiovascular Disease | DX: R00.2 Palpitations (principal) | CPT/HCPCS: 93227 ==

== ENCOUNTER 2023-02-26 12:15 | Outpatient (REF) | payer OTHER, SELFPAY ==
[2023-02-26 12:51] LABS: Hematocrit 34.5 % (37.0-47.0); Hemoglobin 10.7 g/dl (12.0-16.0); Mean Corpuscular Hemoglobin 25.2 pg (27.0-33.0); Mean Corpuscular Volume 81.2 fL (80.0-98.0); Mean Platelet Volume 10.6 fL (9.4-12.3); Platelet Count 289 X10*3/uL (160-400); Red Blood Count 4.25 X10*6/uL (4.20-5.50); Red Cell Distribution Width 16.2 % (11.0-16.0); White Blood Count 6.9 X10*3/uL (4.8-10.8)
[2023-02-26 14:01] LABS: Estimated Average Glucose 123 mg/dL; Hemoglobin A1c % 5.9 % (<6.0)
[2023-02-26 14:09] LABS: Alanine Aminotransferase 24 U/L (0-31); Albumin Level 4.2 g/dL (3.5-5.0); Alkaline Phosphatase 66 U/L (39-117); Anion Gap 16 (12-20); Aspartate Amino Transferase 22 U/L (5-31); Bilirubin Total 0.1 mg/dL (0.0-1.0); Blood Urea Nitrogen 6 mg/dL (9-16); Calcium 9.6 mg/dL (8.4-10.2); Carbon Dioxide 24 mmol/L (22-29); Chloride 104 mmol/L (96-108); Estimated Glomerular Filt Rate > 60; Glucose Fasting 170 mg/dL (60-99); Iron 32 mcg/dL (30-160); Percent Iron Saturation 9 % (15-50); Potassium 4.2 mmol/L (3.3-5.1); Sodium 140 mmol/L (135-145); Total Iron Binding Capacity 342 mcg/dL (228-428); Total Protein 7.5 g/dL (6.5-8.0); Unsaturated Iron Binding 310 ug/dL
== END 2023-02-26 12:16 | disposition home or self-care (01) ==
LOC: HO.LAB 12:15
PROVIDERS: PCP Physician Assistant; Visit Provider Physician Assistant
DX: D50.9 Iron deficiency anemia, unspecified (principal); R73.09 Other abnormal glucose
CPT/HCPCS: 36415; 80053; 83036; 83540; 85027

== ENCOUNTER 2023-02-27 08:20 | Outpatient (AMB) | payer OTHER, SELFPAY ==
--- NOTE | 2023-02-27 08:22 | MHC.OFFVIS ---
Intake Vital Signs 02/27/23 08:23 Height 5 ft 6 in Weight 192 lb 14.472 oz BMI 31.1 BP 132/83 Blood Pressure Location Lt brachial Position Sitting Pulse 92 Intake Visit Reasons: Colonoscopy Screening Intake Note: Mariana presents in the office as a colonoscopy screening. CC: She is here now because she needs a colonoscopy - no other concerns. Allergies ibuprofen Allergy (Severe, Verified 02/27/23 08:38) Swelling aspirin [ASPIRIN] Allergy (Unknown, Verified 02/27/23 08:27) SWELLING HPI Colonoscopy Screening HPI Details 47 year old? female here today for pre colonoscopy screening.? Patient was sent to us by his PCP.? This is her first colonoscopy screening.? Patient denies any gastrointestinal symptoms in the past or at present.? Maternal uncle was diagnosed with colorectal cancer in his 40s.? Denies history of difficulty with sedation or anesthesia in the past.? Negative for history of sleep apnea.? Denies any history of cardiac, renal, pulmonary, or hepatic disease.?? No history of infectious? diseases like hepatitis A, B, C, HIV or tuberculosis.? Patient is not on any anticoagulation therapy. 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 Cognitive needs: No Hearing needs: No Vision needs: No Female Reproductive History Menstrual Age of Menarche: 16 Review of Systems Const Denies weight gain and Denies weight loss ENT Reports no additional complaints, Denies dysphagia and Denies odynophagia Card Reports no additional complaints Resp Reports no additional complaints GI Denies abdominal pain, Denies belching, Denies melena, Denies bloating, Denies change in bowel habits, Denies dysphagia, Denies excessive flatus, Denies dyspepsia, Denies heartburn, Denies diarrhea, Denies loose stools, Denies nausea, Denies odynophagia and Denies vomiting Reports no additional complaints Musc Reports no additional complaints Neuro Reports no additional complaints Psych Reports no additional complaints Endo Reports no additional complaints Physical Exam Vital Signs: Last Vital Signs Pulse 92 02/27/23 08:23 BP 132/83 02/27/23 08:23 BMI result Body Mass Index 31.1 Const General: healthy appearing, no acute distress and well developed Nutritional Appearance: obese Orientation/consciousness: patient oriented x3 HEENT Head: Yes normal to inspection, Yes normocephalic and Yes atraumatic Face and sinus: Yes normal facial exam Mouth: Normal oral and palatal mucosa present Throat: Yes posterior oropharynx normal, Yes tonsils normal and Yes uvula midline Eyes General: appearance normal, both eyes and all related structures Neck Neck: Yes normal visual inspection, Yes full ROM and Yes trachea midline Thyroid: Thyroid normal Resp Effort & Inspection: normal respiratory effort, able to speak in complete sentences, no tracheal deviation and symmetric chest movement Auscultation: clear to auscultation bilaterally Cardio Rate: regular rate Heart sounds: S1 normal heart sound present and S2 normal heart sound present GI Inspection: Yes normal to inspection, No distended and Yes obesity Palpation (GI): Soft to palpation, not firm, nontender and No hepatosplenomegaly present Auscultation: normal bowel sounds General: Yes no CVA tenderness Back/Spine/Pelvis Back: no CVA tenderness Skin General skin exam: elasticity normal, turgor normal and dry skin Neuro General: patient oriented x3 Psych Appearance: grossly normal Mental Status: mental status grossly normal Speech and movement: Normal speech and movement present Assessment & Plan Assessment & Plan (1) Colon cancer screening: Code(s): Z12.11 - Encounter for screening for malignant neoplasm of colon Plan: Patient denies any GI, cardiac or respiratory symptoms. However patient had episode of palpitation about a month ago or so and was referred to see preventative maintenance technician. Has an appointment with him in April. Will send message to see if patient can be cleared before procedure.? Denies any issues with anesthesia in the past.? Denies any history of sleep apnea.? No history infectious diseases in the past or present.? Not on any anticoagulation therapy.? Patient's maternal phone call of colorectal cancer at early age in his 40s. ? Patient denies melena, hematochezia, unintentional weight loss or ribbon like stools.? Discussed at length the pre-procedure,? prep, diet & medications as well as what to expect prior, during and after the procedure.?? Stressed the importance of good bowel prep. ?Recommended the use of Vaseline or Calmoseptine OTC & baby wipes with bowel movements to promote comfort.? ?Patient verbalizes understanding and agrees to plan of care.? She was given the opportunity to ask questions and all questions answered.? We will see her after the procedure.? Medications: New polyethylene glycol 3350 (Miralax) As directed by gastroenterology department at [facility] 238 grams PO ONCE 238 grams 0RF Z12.11 - Encounter for screening for malignant neoplasm of colon bisacodyl (Dulcolax (bisacodyl)) take 2 tabs at noon the day before your colonoscopy 10 mg (2 x 5 mg) PO ONCE 1 day 2 tabs 0RF Z12.11 - Encounter for screening for malignant neoplasm of colon Coding Level of Care Code New Pt Level 3 (34273) Diagnoses Colon cancer screening Z12.11 Time Spent (min) 40 Comment 30 minutes spent with patient and additional 10 minutes spent reviewing her records
[2023-02-27 08:23] VITALS: BP 132/83; PULSE 92; BMI 31.1
== END 2023-02-27 09:15 | disposition home or self-care (01) ==
PROVIDERS: PCP Physician Assistant; Visit Provider Nurse Practitioner Family
DX: Z12.11 Encounter for screening for malignant neoplasm of colon (principal); Z01.818 Encounter for other preprocedural examination
CPT/HCPCS: 99203

== ENCOUNTER → 2023-02-27 08:20 | Outpatient (BNVA) | payer OTHER, SELFPAY | PROVIDERS: PCP Physician Assistant; Visit Provider Nurse Practitioner Family ==

== ENCOUNTER 2023-04-03 13:19 | Outpatient (AMB) | payer OTHER, SELFPAY ==
[2023-04-03 13:32] VITALS: BP 122/80; PULSE 94; O2SAT 100; BMI 31.5
--- NOTE | 2023-04-03 13:32 | A.OFFPC_ITS ---
Vital Signs 04/03/23 13:32 Height 5 ft 6 in Weight 195 lb 7 oz BMI 31.5 BP 122/80 Blood Pressure Location Lt brachial Position Sitting Pulse 94 Pulse Source Pulse Oximeter Pulse Oximetry (%) 100 Oxygen Delivery Method Room Air Intake Visit Reasons: Annual Exam Intake Note: Patient is here today for a physical. Musculoskeletal Physician Required: No Accompanied by: Self / Same As Patient Allergies ibuprofen Allergy (Severe, Verified 04/03/23 13:40) Swelling aspirin [ASPIRIN] Allergy (Unknown, Verified 04/03/23 13:40) SWELLING Medication List - Last Reconciled 04/03/23 by Rome Redmond PA-C cholecalciferol (vitamin D3) 25 mcg PO DAILY ferrous fumarate (Ferretts) 325 mg PO BID 60 days Tobacco use date assessed: 12/26/22 Dental Screening Dental Screen Date: 04/03/23 Did you have a dental visit in the last 12 months?: Yes Did you have a dental problem in the last 6 months where you did not have access to dental care?: No Was dental information given to patient?: Patient has dentist HPI Annual Exam HPI Details Patient is a 47-year-old female here today for routine annual physical. Patient has a past medical history significant for GERD, obesity, proteinuria. . Anemia: Recently found to low hemoglobin and red blood cell count was started on iron supplementation. Hernia has been present since 2019. She does report getting a blood transfusion after an elective timing type procedure done in [place]. Of note still has fairly heavy menses which may be attributing to her anemia. Will continue to follow CBC and consider hematology evaluation. Has upcoming colonoscopy. .. Impaired glucose metabolism: Most recent fasting blood sugar 178, A1c of 5.9. She reports she was not fasting for these labs. She is not interested in any diabetic medication at this time will like to work on lifestyle modifications to control her blood sugars. Mammogram: Mammogram done in December of 2022 BI-RADS 1 PATIENT SVCS MGR: Is up-to-date with Pap smears. Followed by [employer] career development coordinator Colon cancer screening: Has been seen by a GI and will be scheduled for colonoscopy in near future Vaccine: Up-to-date with tetanus, up-to-date COVID vaccine, declines flu vaccine Laboratory Tests 11/07/21 07/14/22 07/19/22 09:48 11:12 16:58 RBC Hgb Hct Creatinine Fasting Glucose Hemoglobin A1c % Cholesterol 183 LDL Cholesterol, C alc 116 Vitamin B12 580 25-OH Vitamin D To anish 23.4 TSH 2.28 Gardnerella DNA Pr obe Positive A 02/26/23 12:40 RBC 4.25 Hgb 10.7 L Hct 34.5 L Creatinine 0.74 Fasting Glucose 170 H Hemoglobin A1c % 5.9 Cholesterol LDL Cholesterol, C alc Vitamin B12 25-OH Vitamin D To anish TSH Gardnerella DNA Pr obe PFSH Medical History Bunion of left foot Urinary frequency Proteinuria delivery delivered Gallbladder polyp Surgical History History of tubal ligation Family History Mother Ovarian cancer Father Prostate cancer Social History (Updated 04/03/23 @ 13:54 by Rome Redmond PA-C) Housing: House Alcohol intake: current Alcohol intake frequency: holidays/special occasions only Patient Tobacco Use Status: Never used Tobacco Tobacco use type: Cigarette e-Cigarette/Vaping Use: Never Used Second Hand Smoke Exposure: No Current occupational status: employed 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 Rocco Velasquez, Isi Rodriguez, Arian Mehta and colleagues, with an educational marsha from [employer]. Review of Systems Const Denies body aches, Denies chills, Denies excessive sweating, Denies fatigue, Denies fever(s) and Denies headache(s) Eyes Denies blurry vision ENT Denies dysphagia, Denies vertigo, Denies dizziness, Denies headache(s), Denies hearing loss and Denies tinnitus Card Denies chest pain, Denies chest pain with activity, Denies syncope, Denies irregular heart rhythm and Denies dyspnea Resp Denies chest congestion, Denies cough, Denies hemoptysis, Denies dyspnea and Denies wheezing GI Denies abdominal pain, Denies melena, Denies hematochezia, Denies coffee ground emesis, Denies dysphagia, Denies diarrhea, Denies nausea and Denies vomiting Denies urinary frequency, Denies dysuria, Denies urinary hesitancy and Denies urinary urgency Musc Denies arthralgias, Denies limited range of motion, Denies muscle cramps and Denies muscle weakness Skin/Breast Denies rash and Denies skin ulcer Neuro Denies Abnormal speech present, Denies confusion, Denies vertigo, Denies dizziness, Denies syncope, Denies headache(s), Denies memory loss and Denies seizure-like activity Psych Denies anxiety, Denies confusion, Denies depression, Denies memory loss, Denies panic attacks and Denies paranoia Endo Denies excessive sweating, Denies fatigue, Denies flushing, Denies polydipsia and Denies polyuria Aller/Immun Denies wheezing Physical exam (Primary Care) Vital Signs: Last Vital Signs Pulse 94 04/03/23 13:32 BP 122/80 04/03/23 13:32 Pulse Ox 100 04/03/23 13:32 Oxygen Delivery Method Room Air 04/03/23 13:32 BMI result Body Mass Index 31.5 BMI Assessment/Plan discussion: High Tobacco/Smoking Status: Tobacco use Status Tobacco use date assessed 12/26/22 04/03/23 13:33 Patient Tobacco Use Status Never used Tobacco 04/03/23 13:54 Tobacco use type Cigarette 04/03/23 13:54 e-Cigarette/Vaping Use Never Used 04/03/23 13:54 Thrive Assessment: Date of Thrive Assessment Date Thrive assessed 07/19/22 04/03/23 13:33 Const General: cooperative, comfortable, no acute distress, alert and awake; No confusion Orientation/consciousness: oriented to person, oriented to place, patient oriented x3 and No confusion HENMT Head: Yes normocephalic Ears: external ears normal and TM's normal bilaterally Face and sinus: No sinus tenderness Mouth: Normal oral and palatal mucosa present and tongue normal Teeth and gingiva: dentition normal and gingiva normal Throat: Yes posterior oropharynx normal, Yes tonsils normal and Yes uvula midline Eyes Conjunctivae: conjunctivae normal Sclerae: sclerae normal Pupils: Equal, round and reactive pupils present EOM: EOMs intact bilaterally Direct Ophthalmoscopy: No no photophobia Neck Neck: Yes no lymphadenopathy, No tender and Yes no JVD Thyroid: Thyroid normal Carotids: no bruits Chest Chest palpation & inspection: no tenderness Resp Effort & Inspection: normal respiratory effort, no audible wheezes, not labored and no stridor Auscultation: no crackles, no rales, no rhonchi and no wheezes Cardio Jugular venous distension: no JVD Rate: regular rate, not bradycardic and not tachycardic Rhythm: regular rhythm Bruits: no carotid bruits Peripheral pulses: Peripheral pulses 2+ throughout GI Inspection: Yes normal to inspection, No abdominal wall ecchymosis and No vis ible herniation Palpation (GI): Soft to palpation, nontender, no guarding, not rigid and No hepatosplenomegaly present Auscultation: normoactive bowel sounds General: Yes no CVA tenderness Back/Spine/Pelvis Back: no CVA tenderness and No back tenderness Cervical Spine: cervical ROM normal Thoracic/Lumbar Spine: thoracic and lumbar spine normal to inspection, straight leg raise negative bilaterally, No thoraco-lumbar ROM limited and No lumbar spinal tenderness Skin Lesions: no lesions Rashes: no rashes Wounds: no wounds Neuro General: oriented to person, oriented to place, patient oriented x3, CN's II-XI intact bilaterally and No confusion Cranial nerves: Yes Equal, round and reactive pupils present and Yes Normal accommodation reflex present Cognition (Neuro): normal cognition Speech: No Abnormal speech present Gait exam (Neuro): Normal gait present Motor exam (neuro): 5/5 motor strength present throughout Extrem Right upper extremity: full ROM; no cyanosis Left upper extremity: full ROM; no cyanosis Right lower extremity: no edema Left lower extremity: no edema Psych Appearance: grossly normal Mental Status: mental status grossly normal Affect: normal affect Attitude: cooperative Thought process: Normal thought process present Assessment and Plan Assessment & Plan (1) Annual physical exam: Code(s): Z00.00 - Encounter for general adult medical examination without abnormal findings (2) Iron deficiency anemia: Code(s): D50.9 - Iron deficiency anemia, unspecified Qualifiers: Iron deficiency anemia type: unspecified iron deficiency Qualified Code(s): D50.9 - Iron deficiency anemia, unspecified Plan: Patient seems to have iron deficiency anemia. Most recent labs showing a large decrease in her iron and her iron binding capacity.. Has been started on iron supplementation. Has noted anemia since 2019 at the time she did get a blood transfusion in a different country([place]) after an elective tummy tuck procedure. Advised to consider seeing hematology (3) Low vitamin D level: Code(s): R79.89 - Other specified abnormal findings of blood chemistry (4) Impaired glucose metabolism: Code(s): R73.09 - Other abnormal glucose Plan: Most recent A1c of 5.9. Will continue to work on lifestyle modifications on reducing her blood sugars. Does have a family history of type 2 diabetes. (5) Obese: Code(s): E66.9 - Obesity, unspecified Qualifiers: Obesity type: due to excess calories Obesity classification: adult class 1 (BMI 30 - 34.9) Serious obesity comorbidity presence: without serious comorbidity Body mass index: BMI 31.0-31.9 Qualified Code(s): E66.09 - Other obesity due to excess calories; Z68.31 - Body mass index [BMI] 31.0-31.9, adult Plan: Patient does understand her BMI is over 30 will work on being more physically active and adapting to better eating habits to reduce her weight. Orders: Orders Complete Blood Count no Diff 04/03/23 D50.9 - Iron deficiency anemia, unspecified Ferritin 04/03/23 D50.9 - Iron deficiency anemia, unspecified Coding Level of Care Code Est Pt Prev Care 40-64y(68053) Diagnoses Annual physical exam Z00.00 Iron deficiency anemia, unspecified iron deficiency anemia type D50.9 Iron deficiency anemia type: unspecified iron deficiency Low vitamin D level R79.89 Impaired glucose metabolism R73.09 Class 1 obesity due to excess calories without serious comorbidity with body mass index (BMI) of 31.0 to 31.9 in adult E66.09; Z68.31 Obesity type: due to excess calories Obesity classification: adult class 1 (BMI 30 - 34.9) Serious obesity comorbidity presence: without serious comorbidity Body mass index: BMI 31.0-31.9
== END 2023-04-03 14:17 | disposition home or self-care (01) ==
PROVIDERS: Visit Provider Physician Assistant
DX: Z00.00 Encounter for general adult medical examination without abnormal findings (principal); D50.9 Iron deficiency anemia, unspecified; R79.89 Other specified abnormal findings of blood chemistry; R73.09 Other abnormal glucose; E66.09 Other obesity due to excess calories; Z68.31 Body mass index [BMI] 31.0-31.9, adult; K21.9 Gastro-esophageal reflux disease without esophagitis
CPT/HCPCS: 99396

== ENCOUNTER 2023-05-03 12:53 | Outpatient (AMB) | payer OTHER, SELFPAY ==
[2023-05-03 12:56] VITALS: BP 120/80; PULSE 97; BMI 31.0
--- NOTE | 2023-05-03 12:56 | A.OFFVIS_ITS ---
Intake Vital Signs 05/03/23 12:56 Height 5 ft 6 in Weight 191 lb 12.835 oz BMI 31.0 BP 120/80 Blood Pressure Location Lt brachial Position Sitting Pulse 97 Intake Visit Reasons: NPV/Palps/Felto + preop colonoscopy Intake Note: New patient pre-op clearance colonscopy has palpation having some today Carrot Harvester Required: No Allergies ibuprofen Allergy (Severe, Verified 04/03/23 13:40) Swelling aspirin [ASPIRIN] Allergy (Unknown, Verified 04/03/23 13:40) SWELLING Medication List - Last Reconciled 05/03/23 by Angel Botello MD cholecalciferol (vitamin D3) 25 mcg PO DAILY ferrous fumarate (Ferretts) 325 mg PO BID 60 days HPI HPI Comments History of Present Illness Details Mariana was referred here for symptoms of palpitations. First episode of palpitations happen in November after she developed a rash. The next day she got very anxious and then developed rapid heart rate and pounding in her chest. She ended up going to the emergency room where she was noted to be tachycardia up to 135 beats per minute. EKG done at that time showed sinus tachycardia in 121 beats per minute. She was subsequently released home. Since then she has had episodic episodes of palpitations. She has been diagnosed with anemia is a non therapy and says that despite iron therapy and her anemia counts getting better she gets these episodes of palpitation which she describes as strong heartbeats. She says she does get anxious with this and she is not sure if anxiety is causing the rapid heart rate but is possible. She denies any exertional chest pain or shortness of breath. She is scheduled to undergo colonoscopy in near future. No lightheadedness, syncope. Her TSH done in December was within normal limits. 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 Cognitive needs: No Hearing needs: No Vision needs: No Female Reproductive History Menstrual Age of Menarche: 16 Review of Systems Const Denies chills, Denies daytime sleepiness, Denies fatigue, Denies fever(s), Denies frequent falls, Denies poor appetite, Denies snoring, Denies stops dianelys athing during sleep, Denies weakness, Denies weight gain and Denies weight loss Eyes Denies loss of vision ENT Denies dizziness and Denies hearing loss Card Denies chest pain, Denies claudication, Denies leg edema, Denies lightheadedness, Denies palpitations, Denies dyspnea, Denies dyspnea on exertion and Denies orthopnea Resp Denies cough, Denies excessive phlegm production, Denies dyspnea, Denies dyspnea on exertion, Denies snoring and Denies wheezing GI Denies abdominal pain, Denies hematochezia, Denies change in bowel habits, Denies nausea and Denies vomiting Denies urinary frequency and Denies dysuria Musc Denies arthralgias, Denies muscle weakness, Denies numbness and Denies other (frequent falls) Skin/Breast Denies nail changes and Denies rash Neuro Denies Abnormal speech present, Denies dizziness, Denies frequent falls, Denies loss of vision, Denies memory loss, Denies numbness and Denies weakness Psych Denies depression and Denies memory loss Endo Denies fatigue and Denies palpitations Aditya/Lymph Reports easy bruising and Reports other (anemia) Aller/Immun Denies wheezing Physical Exam Vital Signs: Last Vital Signs Pulse 97 05/03/23 12:56 BP 120/80 05/03/23 12:56 BMI result Body Mass Index 31.0 Const General: cooperative, comfortable, no acute distress, alert, awake, Physically active and anxious Nutritional Appearance: overweight Orientation/consciousness: patient oriented x3 Limitations: no limitations HEENT Head: Yes normocephalic and Yes atraumatic Neck Neck: Yes trachea midline, Yes supple and Yes no JVD Resp Effort & Inspection: normal respiratory effort Auscultation: clear to auscultation bilaterally Cardio Jugular venous distension: no JVD Palpation: normal PMI Rate: regular rate Rhythm: regular rhythm Heart sounds: S1 normal heart sound present, S2 normal heart sound present, no click, no gallops, no murmurs and no rubs GI Auscultation: normal bowel sounds Skin General skin exam: no rashes or lesions noted Neuro General: patient oriented x3 and no focal motor deficits Speech: No Abnormal speech present Extrem General: Yes no clubbing, cyanosis or edema Office Procedures EKG Details: EKG shows normal sinus rhythm with sinus arrhythmia otherwise normal EKG at 97 beats per minute 53475-[id number], Complete Assessment & Plan Assessment & Plan (1) Intermittent palpitations: Code(s): R00.2 - Palpitations Plan: Patient with highly distressing symptoms of intermittent palpitation which appear to be related to sinus tachycardia. This could in turn be precipitated by her new medical diagnosis of anemia which is making her anxious. Is possible that anxiety is driving her symptoms. However it is possible also likelihood of SVT. Will suggest a 30 day event monitor to assess for the same. Will also suggest an echocardiogram to evaluate for cardiac structure and function. These tests will be scheduled in near future. Although less likely would also check for plasma metanephrine levels. We discussed about treating her anemia aggressively and also advised her to participate in stress mitigation strategies and may be treating her anxiety might help control symptoms. Also advise volume expansion with increase fluid intake. Avoidance of stimulants such as caffeine and alcohol. If she does have sinus tachycardia I would proceed with treating her underlying trigger factors. Will follow up in the clinic in 2 months time, sooner p.r.n.. Thank you for allowing me to partake in her care Orders: Orders Metanephrines, Plasma Today R00.2 - Palpitations Coding Level of Care Code New Pt Level 3 (75786) Diagnoses Intermittent palpitations R00.2 CPT Codes EKG - CPT: 27800-[id number], Complete ([id number])
== END 2023-05-03 13:32 | disposition home or self-care (01) ==
PROVIDERS: PCP Physician Assistant; Visit Provider Internal Medicine Cardiovascular Disease
DX: R00.2 Palpitations (principal)
CPT/HCPCS: 93010; 99213

== ENCOUNTER 2023-05-03 12:53 | Outpatient (REF) | payer OTHER, SELFPAY ==
[2023-05-03 14:15] LABS: Hematocrit 39.8 % (37.0-47.0); Hemoglobin 12.5 g/dl (12.0-16.0); Mean Corpuscular HGB Conc 31.4 g/dl (31.0-35.0); Mean Corpuscular Volume 82.7 fL (80.0-98.0); Mean Platelet Volume 10.7 fL (9.4-12.3); Platelet Count 364 X10*3/uL (160-400); Red Blood Count 4.81 X10*6/uL (4.20-5.50); Red Cell Distribution Width 14.3 % (11.0-16.0); White Blood Count 8.2 X10*3/uL (4.8-10.8)
[2023-05-03 14:49] LABS: Iron 82 mcg/dL (30-160); Percent Iron Saturation 22 % (15-50); Total Iron Binding Capacity 369 mcg/dL (228-428); Unsaturated Iron Binding 287 ug/dL
[2023-05-03 15:04] LABS: Ferritin 39 ng/mL (10-250)
[2023-05-09 15:49] LABS: Metanephrine, Free 58 pg/mL (<=57); Normetanephrines, Free 106 pg/mL (<=148); Total Metanephrine, Free 164 pg/mL (<=205)
== END 2023-05-03 12:54 | disposition home or self-care (01) ==
LOC: HO.LAB 12:53
PROVIDERS: Absent Provider Physician Assistant; PCP Physician Assistant; Visit Provider Internal Medicine Cardiovascular Disease
DX: R00.2 Palpitations (principal); D50.9 Iron deficiency anemia, unspecified; Z79.899 Other long term (current) drug therapy
CPT/HCPCS: 36415; 82728; 83540; 83835; 85027; 93005; 99212

== ENCOUNTER → 2023-05-22 13:52 | Outpatient (REF) | payer OTHER, SELFPAY | LOC: HO.CARD 13:52 | PROVIDERS: PCP Physician Assistant; Visit Provider Internal Medicine Cardiovascular Disease | DX: Z13.89 Encounter for screening for other disorder (principal) ==

== ENCOUNTER → 2023-05-22 13:55 | Outpatient (BNV) | payer OTHER, SELFPAY | PROVIDERS: PCP Physician Assistant; Visit Provider Internal Medicine | DX: I47.10 Supraventricular tachycardia, unspecified (principal) | CPT/HCPCS: 93248; 93306 ==

== ENCOUNTER → 2023-05-22 | Outpatient (REF) | payer OTHER, SELFPAY ==
--- NOTE | 2023-05-22 13:55 | CA_ITS ---
Transthoracic Echocardiogram Patient (Last, First, Middle): Mariana Bliss, Gender: Female Date of : 1975 Age: 47 Procedure Date: 05/22/2023 Procedure Type: Transthoracic Echocardiogram Location: OP Height: 167.64 cm Weight: 87.09 kg BSA: 1.97 m2 Heart Rate: bpm BP: 120 / 70 mmHg Log Data Technician: ELIZABETH/ROSAURA Referring MD: Angel Botello MD Symptoms: R00.2 - Palpitations Study Quality: Adequate ECG Rhythm: Sinus Conclusions: - The left ventricular systolic function is normal. The calculated ejection fraction is 66% by biplane method. - No obvious valvular pathology seen on this study. - There is mild dilatation of the ascending aorta measuring 3.90 cm. Findings Left Ventricle Normal left ventricular cavity size. There is normal left ventricular wall thickness. The left ventricular systolic function is normal. The calculated ejection fraction is 66% by biplane method. There is no evidence of regional wall motion abnormalities. Diastolic function is normal for age. LV peak GLS -19.4%. Right Ventricle Mildly increased right ventricular cavity size. There is normal right ventricular systolic function. Atria Both atria are normal in size. Aortic Valve There is a normal trileaflet aortic valve. There is no aortic valve stenosis. There is trace (trivial) aortic valve regurgitation. Mitral Valve The mitral valve appears normal. There is no mitral valve regurgitation. There is no mitral valve stenosis. Pulmonic Valve The pulmonic valve is likely normal. Tricuspid Valve Normal tricuspid valve structure. There is trace tricuspid valve regurgitation. There is no evidence of pulmonary hypertension. Great Vessels There is mild dilatation of the ascending aorta measuring 3.90 cm. Venous The inferior vena cava is normal in size and collapses greater than 50% with inspiration. Pericardium/Pleural There is no evidence of pericardial effusion. Prior Study Comparison No prior study available for comparison. Recommendations, Care & Conclusions No obvious valvular pathology seen on this study. Measurements 2D Linear Measurements IVSd: 0.89 0.6-0.9/0.6-1.0 cm LVIDd: 4.86 3.9-5.3/4.2-5.9 cm LVIDd Index: 2.47 2.4-3.2/2.2-3.1 cm/m2 LVIDs: 3.01 2.0-3.6 cm LVPWd: 1.07 0.7-1.1 cm LA Diam: 4.50 2.7-3.8/3.0-4.0 cm LAIDs Index: 2.28 1.5-2.3 cm/m2 LV Mass: 210.09 67-162/88-224 g LV Mass Index: 106.64 43-95/49-115 g/m2 LVOT Diam: 2.30 3.0+(-)1.3 cm 2D Systolic Function EF 4C: 67.50 >55% EF 2C: 65.90 >55% EF BiP: 65.90 >55% Mitral Valve MV Pk E: 0.93 MV PK A: 0.95 MV Decel Time: 118.00 E/A: 1.00 E'Lateral: 9.79 E'Medial: 8.08 E/E' Med: 11.50 E/E' Lat: 9.50 PHT: 35.00 MVA PHT: 6.29 Decel Dickson: 7.85 Aortic Valve AoV Pk Tomi: 1.85 AoV Mn Tomi: 1.20 AoV VTI: 0.35 AoV Pk Grad: 14.00 Aov Mn Grad: 7.00 BELÉN Cont.VTI: 3.23 LVOT LVOT Pk Tomi: 1.63 LVOT Mn Tomi: 1.00 LVOT VTI: 0.27 LVOT Pk Grad: 11.00 LVOT Mn Grad: 5.00 LVOT Diam: 2.30 LVOT Area: 4.15 Diastolic Function MV Pk E: 0.93 MV Pk A: 0.95 E/A: 1.00 E'Medial: 8.08 E/E' Med: 11.50 E' Laterial: 9.79 E/E' Lat: 9.50 Right Ventricle TAPSE (mm): 24.80 TVS' Tomi: 14.00 Tricuspid Valve TR Pk Tomi: 2.00 TR Pk Grad: 16.00 RA Press: 3.00 RVSP: 19.00 Great Vessels Aorta Sinus of Valsalva: 3.25 2.0-3.5 cm Ao Asc: 3.90 2.1-3.4 cm Ao Arch: 3.20 Updated in Other Vendor System with Status of Final Florencio Russell MD electronically signed on 05/23/2023 11:23:05 AM with status of Final
--- NOTE | 2023-05-22 13:55 | HM_ITS ---
* Total monitoring time 14 days. * Underlying rhythm is sinus average rate of 84/Min. Range 50 to 172/Min. About 15% of the time, rate greater than 100/Min. * Rare supraventricular ectopy. * No sustained arrhythmias. * No significant pauses or AV blocks. * No patient markers or diary events. MTDD
== END ==
LOC: HO.CARD
PROVIDERS: PCP Physician Assistant; Visit Provider Internal Medicine Cardiovascular Disease
DX: R00.2 Palpitations (principal)
CPT/HCPCS: 93246; 93306; 93356

== ENCOUNTER 2023-07-02 14:25 | Outpatient (AMB) | payer OTHER, SELFPAY ==
--- NOTE | 2023-07-02 14:29 | MHC.OFFVIS ---
Intake Intake Visit Reasons: 1y follow up/PVR Intake Note: Patient is present for follow up urinary frequency Urology Medication: none Blood thinner: none PVR: 0ml's Chain Offbearer Required: No Accompanied by: Self / Same As Patient Allergies ibuprofen Allergy (Severe, Verified 07/02/23 15:02) Swelling aspirin [ASPIRIN] Allergy (Unknown, Verified 07/02/23 15:02) SWELLING Medication List - Last Reconciled 07/02/23 by NATALIE Shaw cholecalciferol (vitamin D3) 25 mcg PO DAILY HPI HPI Comments History of Present Illness Details Mariana is a pleasant 47-year-old female patient of Dr. Redmond. She presents to the office today for follow-up regarding her urinary frequency. When asked patient reports to be doing well. She reports following up with Nephrology regarding proteinuria since her last visit here with Urology. She reports nephrology workup within normal limits. When asked patient denies any bothersome urinary issues or concerns. She denies urinary urgency, urinary frequency, incontinence, nocturia, hematuria, dysuria, foul smelling urine, changes to urinary stream, flank pain, fever, and or chills. She is happy with her current voiding parameters. In office urinalysis results reviewed with the patient today 1+ protein, 3+ microscopic hematuria. She reports currently being on her menses and has followed up with Nephrology regarding proteinuria. PVR 0 mL. She otherwise offers no other issues or concerns at this time. Of note patient was seen previously [place] [address] Kamara and a cystoscopy was attempted but the cystoscopy scope was unable to be inserted secondary to urethral stricture. 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 Reports as per HPI Physical Exam Const General: cooperative, healthy appearing, comfortable, no acute distress, well developed, alert and awake Orientation/consciousness: patient oriented x3 Limitations: no limitations HEENT Head: Yes normal to inspection, Yes normocephalic and Yes atraumatic Ears: hearing grossly normal bilaterally Eyes General: appearance normal, both eyes and all related structures Neck Neck: Yes normal visual inspection and Yes trachea midline Chest Chest palpation & inspection: normal inspection of the chest Resp Effort & Inspection: normal respiratory effort and able to speak in complete sentences Cardio Rate: regular rate GI Inspection: Yes normal to inspection General: Yes no CVA tenderness Back/Spine/Pelvis Back: no CVA tenderness Skin General skin exam: no rashes or lesions noted Neuro General: patient oriented x3 Extrem General: Yes normal to inspection Psych Appearance: grossly normal and well kempt Mental Status: mental status grossly normal Speech and movement: Normal speech and movement present Affect: normal affect Attitude: cooperative Thought process: Normal thought process present Thought content: Normal thought content present Insight: Good insight present (Psych) Judgement: Good judgement present (Psych) Office Procedures Post Void Residual Post Residual Void Post Void Residual (PVR): 0 [id number] Void Residual by ultrasound Results AMB Urinalysis, Automated UA Leukoctes 0 Carlyn/uL Last Edit by Mirna Mcclellan on 07/02/23 14:53 UA Nitrite Negative Last Edit by Mirna Mcclellan on 07/02/23 14:53 UA Urobilinogen 0.2 mg/dL Last Edit by [employer] Eleuterio on 07/02/23 14:53 UA Protein 30 mg/dL Last Edit by BrownEvogenmey Mcclellan on 07/02/23 14:53 UA pH 5.5 Last Edit by BrownEvogenmey Mcclellan on 07/02/23 14:53 UA Blood 200 Silas/uL Last Edit by BrownEvogenmey Mcclellan on 07/02/23 14:53 UA Specific [place] 1.030 Last Edit by VeryLastRoommey Mcclellan on 07/02/23 14:53 UA Ketone Negative Last Edit by Mirna Mcclellan on 07/02/23 14:53 UA Bilirubin 0 mg/dL Last Edit by Mirna Mcclellan on 07/02/23 14:53 UA Glucose 0 mg/dL Last Edit by Mirna Mcclellan on 07/02/23 14:53 Results Reviewed Results Reviewed: Laboratory Last Values Urine pH (Auto) 5.5 07/02/23 14:34 Specific [place] (Auto) 1.030 07/02/23 14:34 Urine Protein (Auto) 30 mg/dL 07/02/23 14:34 Glucose (UA)(Auto) 0 mg/dL 07/02/23 14:34 Urine Ketones (Auto) Negative 07/02/23 14:34 Urine Blood (Auto) 200 Silas/uL 07/02/23 14:34 Urine Nitrite (Auto) Negative 07/02/23 14:34 Urine Bilirubin (Auto) 0 mg/dL 07/02/23 14:34 Urine Urobilinogen (Auto) 0.2 mg/dL 07/02/23 14:34 Leukocyte Esterase (Auto) 0 Carlyn/uL 07/02/23 14:34 Assessment & Plan Assessment & Plan (1) Urinary frequency: Code(s): R35.0 - Frequency of micturition (2) Proteinuria: Code(s): R80.9 - Proteinuria, unspecified Plan In office urinalysis results reviewed with the patient today; as noted above. Continue to follow with Nephrology regarding proteinuria. Patient currently denies any bothersome urinary issues or concerns. PVR 0 mL. Discussed, educated, and stressed the importance of drinking plenty of water daily. Patient reports be happy with current voiding parameters. Follow-up in 1 year with PVR; or sooner with any issues, concerns, and or questions. Orders: Orders AMB Urinalysis Automated Today Z13.9 - Encounter for screening, unspecified AMB Post Void Residual by ultrasound Today R35.0 - Frequency of micturition Patient Instructions: The patient had an opportunity to ask questions regarding the treatment plan. All questions were answered. Physical exam, labs, and imaging were discussed and reviewed in detail. As well as risks, benefits, and discussion of treatment choices. No major barriers to understanding were identified. The patient expressed understanding and agreement with the above treatment plan. The patient was made aware they should contact our office by phone for worsening of their current condition, the appearance of new symptoms, or with any questions or concerns. Compliance is encouraged with any medications and follow up testing that is ordered. It is a privilege to be allowed the opportunity to participate in? your urological care.? Again, if you have any questions or concerns If you have any questions or concerns please do not hesitate to contact me. The office is [phone]. This note is constructed using voice recognition software. While every effort has been made to ensure accuracy ship worker errors may have been included. Yours sincerely, NATALIE Shaw Coding Level of Care Code Est Pt Level 3 (29604) Diagnoses Urinary frequency R35.0 Proteinuria R80.9 CPT Codes Post Residual Void - PVR CPT Code: 36616-Jzhr Void Residual by ultrasound ([id number])
== END 2023-07-02 15:03 | disposition home or self-care (01) ==
PROVIDERS: Visit Provider Nurse Practitioner Family
DX: R35.0 Frequency of micturition (principal); R80.9 Proteinuria, unspecified
CPT/HCPCS: 99213

== ENCOUNTER → 2023-07-02 14:25 | Outpatient (BNVA) | payer OTHER, SELFPAY | PROVIDERS: Visit Provider Nurse Practitioner Family | DX: R35.0 Frequency of micturition (principal); R80.9 Proteinuria, unspecified | CPT/HCPCS: 51798; 81003; 99212 ==

== ENCOUNTER 2023-08-02 09:51 | Outpatient (AMB) | payer OTHER, SELFPAY ==
[2023-08-02 09:52] VITALS: BP 106/80; PULSE 86; O2SAT 99; BMI 31.7
--- NOTE | 2023-08-02 09:52 | MHC.PC.OV ---
Vital Signs 08/02/23 09:52 Height 5 ft 6 in Weight 196 lb 4 oz BMI 31.7 BP 106/80 Blood Pressure Location Lt brachial Position Sitting Pulse 86 Pulse Source Pulse Oximeter Pulse Oximetry (%) 99 Oxygen Delivery Method Room Air Intake Visit Reasons: 3 Month F/U Loss Prevention Manager Required: No Accompanied by: Self / Same As Patient Allergies ibuprofen Allergy (Severe, Verified 08/02/23 10:23) Swelling aspirin [ASPIRIN] Allergy (Unknown, Verified 08/02/23 10:23) SWELLING Medication List - Last Reconciled 08/02/23 by Rome Redmond PA-C No Known Home Meds Tobacco use date assessed: 08/02/23 Dental Screening Dental Screen Date: 08/02/23 Did you have a dental visit in the last 12 months?: No Did you have a dental problem in the last 6 months where you did not have access to dental care?: No Was dental information given to patient?: Patient has dentist HPI 3 Month F/U HPI Details Patient is a 47-year-old female here today for a follow-up visit Patient has a past medical history significant for GERD, obesity, proteinuria. . Anemia: Recently found to low hemoglobin and red blood cell count was started on iron supplementation. Hernia has been present since 2019. She does report getting a blood transfusion after an elective timing type procedure done in [place]. Of note still has fairly heavy menses which may be attributing to her anemia. Will continue to follow CBC and consider hematology evaluation. Has upcoming colonoscopy. .. Protein urea: Has followed up with Urology and cystoscopy was attempted though can not insert due to urethral stricture. She does have history urinary retention though upon previous visit this has resolved. .. Heart palpitations: Has gotten echocardiogram and cardiac Holter monitor which were essentially normal. Patient's palpitations thought to be related to her anxiety. . Iron deficiency anemia: Was on iron supplementation previously in her hemoglobin had normalized. She is now off of iron supplementation would like repeat labs to see if her hemoglobin goes down. She does report still having menstruations that are fairly heavy at times. .. Impaired glucose metabolism: Most recent A1c of 5.9. She reports she was not fasting for these labs. She is not interested in any diabetic medication at this time will like to work on lifestyle modifications to control her blood sugars. 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 1. Little interest or pleasure in doing things: not at all 2. Feeling down, depressed, or hopeless: not at all 3. Trouble falling or staying asleep, or sleeping too much: not at all 4. Feeling tired or having little energy: not at all 5. Poor appetite or overeating: not at all 6. Feeling bad about yourself - or that you are a failure or have let yourself or your family down: not at all 7. Trouble concentrating on things, such as reading the newspaper or watching television: not at all 8. Moving or speaking so slowly that other people could have noticed. Or the opposite - being so fidgety or restless that you have been moving around a lot more than usual: not at all 9. Thoughts that you would be better off or of hurting yourself in some way: not at all Total score: 0 Depression Screening Interpretation: Negative Depression Screening Done: Yes 58226 - PHQ-9 Billing: Yes Source: Developed by Drs. Rocco Velasquez, Isi Rodriguez, Arian Mehta and colleagues, with an educational marsha from [employer]. Thrive Questionnaire Date Thrive assessed: 08/02/23 I am a: Patient What is your living situation today?: I have a steady place to live Within the past 12 months, did the food you bought not last and you didn't have the money to get more?: Never true Within the past 12 months, did you worry whether your food would run out before you got money to buy more?: Never true Do you have trouble paying for medicines?: No Do you have trouble getting transportation to medical appointments?: No Do you have trouble paying your heating and electricity bill?: No Do you have trouble taking care of your child, family member or friend?: No Do you have trouble with day-to-day activities such as bathing, preparing meals, shopping, managing finances, etc.?: No Are you currently unemployed and looking for a job?: No Are you interested in more education?: No Please select the resources that you would like help with: None Currently or been in a relationship where the following occur: no concerns reported THRIVE Score: 0 AUDIT C Alcohol Use Questionnaire (AUDIT-C) 1. How often do you have a drink containing alcohol?: Never Total Score: 0 Score Reviewed/Action Taken: No ABDOULAYE-7 AMB Questionnaire ABDOULAYE-7 Date ABDOULAYE - 7 assessed: 08/02/23 Feeling nervous, anxious, or on edge: 0 = Not at all Not being able to stop or control worryin = Not at all Worrying too much about different things: 0 = Not at all Trouble relaxin = Not at all Being so restless that it is hard to sit still: 0 = Not at all Becoming easily annoyed or irritable: 0 = Not at all Feeling afraid as if something awful might happen: 0 = Not at all Total ABDOULAYE-7 score (0-4 normal; 5-9 mild; 10-14 moderate; 15-21 severe): 0 Source: Developed by Drs. Rocco Velasquez, Isi Rodriguez, Arian Mehta and colleagues, with an educational marsha from [employer]. ABDOULAYE-7 Assessment Billing ABDOULAYE-7 Assessment Tool: ABDOULAYE-7 Assessment 60655 Physical exam (Primary Care) Vital Signs: Last Vital Signs Pulse 86 08/02/23 09:52 BP 106/80 08/02/23 09:52 Pulse Ox 99 08/02/23 09:52 Oxygen Delivery Method Room Air 08/02/23 09:52 BMI result Body Mass Index 31.7 Tobacco/Smoking Status: Tobacco use Status Tobacco use date assessed 08/02/23 08/02/23 10:17 Patient Tobacco Use Status Never used Tobacco 08/02/23 09:52 Tobacco use type Cigarette 08/02/23 09:52 e-Cigarette/Vaping Use Never Used 08/02/23 09:52 PHQ-9: PHQ-9 Score PHQ-9: Total score 0 08/02/23 10:25 Depression Screening Interpretation: Negative Thrive Assessment: Date of Thrive Assessment Date Thrive assessed 08/02/23 08/02/23 10:17 Currently or been in a relationship where the following occur: no concerns reported Assessment and Plan Assessment & Plan (1) Iron deficiency anemia: Code(s): D50.9 - Iron deficiency anemia, unspecified Qualifiers: Iron deficiency anemia type: unspecified iron deficiency Qualified Code(s): D50.9 - Iron deficiency anemia, unspecified Plan: Has a history of iron deficiency anemia. Was on iron supplementation. Has been off of iron supplementation would like to look to see her hemoglobin has dropped. (2) Intermittent palpitations: Code(s): R00.2 - Palpitations Plan: Has intermittent palpitations. Has had echocardiogram and Holter monitor without any significant findings. Palpitations likely related to anxiety. (3) Upper respiratory infection: Code(s): J06.9 - Acute upper respiratory infection, unspecified Qualifiers: URI type: unspecified viral URI Qualified Code(s): J06.9 - Acute upper respiratory infection, unspecified Plan: Reports having some sinus pressure and nasal congestion over last 24-48 hours. Will send for triple viral testing. Orders: Orders IRON PROFILE Today D50.9 - Iron deficiency anemia, unspecified Hemoglobin A1c Today R73.09 - Other abnormal glucose Comprehensive [place]. Panel Fast Today R73.09 - Other abnormal glucose Complete Blood Count no Diff Today D50.9 - Iron deficiency anemia, unspecified Basic Metabolic Panel Today R00.2 - Palpitations SARS-CoV2/FLU/RSV Today J06.9 - Acute upper respiratory infection, unspecified Referrals Podiatry Referral M21.612 - Bunion of left foot Coding Level of Care Code Est Pt Level 4 (33549) Diagnoses Iron deficiency anemia, unspecified iron deficiency anemia type D50.9 Iron deficiency anemia type: unspecified iron deficiency Intermittent palpitations R00.2 Viral upper respiratory tract infection J06.9 URI type: unspecified viral URI Additional Codes ABDOULAYE-7 Assessment Billing - ABDOULAYE-7 Assessment Tool: ABDOULAYE-7 Assessment 38763 ([id number])
== END 2023-08-02 10:42 | disposition home or self-care (01) ==
PROVIDERS: PCP Physician Assistant; Visit Provider Physician Assistant
DX: D50.9 Iron deficiency anemia, unspecified (principal); R00.2 Palpitations; J06.9 Acute upper respiratory infection, unspecified
CPT/HCPCS: 99214

== ENCOUNTER 2023-08-02 10:49 | Outpatient (REF) | payer OTHER, SELFPAY ==
[2023-08-02 11:50] LABS: Influenza A PCR NEGATIVE (Negative); Influenza B PCR NEGATIVE (Negative); Resp Syncy Virus RNA Qual PCR NEGATIVE (Negative); SARS COV2 PCR INHOUSE NEGATIVE (Negative)
[2023-08-02 11:51] LABS: Hematocrit 36.1 % (37.0-47.0); Hemoglobin 11.4 g/dl (12.0-16.0); Mean Corpuscular HGB Conc 31.6 g/dl (31.0-35.0); Mean Corpuscular Hemoglobin 25.6 pg (27.0-33.0); Mean Corpuscular Volume 81.1 fL (80.0-98.0); Mean Platelet Volume 10.5 fL (9.4-12.3); Platelet Count 337 X10*3/uL (160-400); Red Blood Count 4.45 X10*6/uL (4.20-5.50); Red Cell Distribution Width 14.1 % (11.0-16.0)
[2023-08-02 12:04] LABS: Estimated Average Glucose 123 mg/dL; Hemoglobin A1c % 5.9 % (<6.0)
[2023-08-02 12:32] LABS: Alanine Aminotransferase 25 U/L (0-31); Albumin Level 4.4 g/dL (3.5-5.0); Alkaline Phosphatase 67 U/L (39-117); Anion Gap 15 (12-20); Aspartate Amino Transferase 17 U/L (5-31); Bilirubin Total 0.3 mg/dL (0.0-1.0); Blood Urea Nitrogen 8 mg/dL (9-16); Calcium 9.5 mg/dL (8.4-10.2); Carbon Dioxide 28 mmol/L (22-29); Chloride 102 mmol/L (96-108); Estimated Glomerular Filt Rate > 60; Glucose Fasting 93 mg/dL (60-99); Glucose Random 93 mg/dL (60-115); Iron 41 mcg/dL (30-160); Percent Iron Saturation 11 % (15-50); Potassium 4.2 mmol/L (3.3-5.1); Sodium 141 mmol/L (135-145); Total Iron Binding Capacity 386 mcg/dL (228-428); Total Protein 7.8 g/dL (6.5-8.0); Unsaturated Iron Binding 345 ug/dL
== END 2023-08-02 10:50 | disposition home or self-care (01) ==
LOC: HO.LAB 10:49
PROVIDERS: PCP Physician Assistant; Visit Provider Physician Assistant
DX: R73.09 Other abnormal glucose (principal); D50.9 Iron deficiency anemia, unspecified; R00.2 Palpitations; J06.9 Acute upper respiratory infection, unspecified; Z11.52 Encounter for screening for COVID-19; Z20.828 Contact with and (suspected) exposure to other viral communicable diseases
CPT/HCPCS: 0241U; 80048; 80053; 83036; 83540; 85027

== ENCOUNTER 2023-08-27 14:12 | Outpatient (AMB) | payer OTHER, SELFPAY ==
[2023-08-27 14:24] VITALS: BP 118/80; BMI 32.0
--- NOTE | 2023-08-27 14:24 | MHC.OFFVIS ---
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 She also has family history of other kinds of cancers so she is nervous about everything today she is concerned about various minor changes and her skin including tiny white serum collections in the epidermis of her labia. As well she is getting miniscule tiny darkened skin tags all over her chest and neck that are bothering her. She is questioning the normalcy of things and what can be done about them. She had what she calls a tummy tuck surgery that was not a full abdominal plasty because her belly button was not changed. She said the 1st surgery she kept bleeding and bleeding and bleeding and they had to go back and repair it this was in [place] some years ago. She says the eat even pre-existing that she often had a sensation that she was not fully emptying her bladder. She has been to Urology and has had testing done for residual urine and there is always something but says at this last exam even though she still felt that she had not fully emptied the machine read 0 but she thinks there was something wrong with the measuring. She wants full STD testing as well. She says that she was told that she is pushing up against the pre diabetes range. She knows she would benefit from exercise but she thinks she eats out of stress She has under a lot of stress. Her daughter was killed 2 years ago and she became tearful discussing it. There are lots of court cases involved in her and this has resulted in lots of reliving the memories again and again and again. [facility] Medical History (Updated 08/27/23 @ 15:41 by Kandy Willett CNM) Bunion of left foot Urinary frequency Proteinuria delivery delivered Gallbladder polyp Surgical History (Updated 08/27/23 @ 15:35 by Kandy Willett CNM) Hx of section Hx of cosmetic surgery History of tubal ligation Family History (Updated 08/27/23 @ 14:28 by SANDY Chin) Mother Ovarian cancer Father Prostate cancer Maternal Uncle Colon cancer Social History Housing: House Alcohol intake: current Alcohol intake frequency: holidays/special occasions only Patient Tobacco Use Status: Never used Tobacco Tobacco use type: Cigarette e-Cigarette/Vaping Use: Never Used Second Hand Smoke Exposure: No Current occupational status: employed 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 There are tiny slightly light her colored flecks that appeared to be consistent with tiny sebum collections and her mons pubis. Additionally she is questioning the slightly bumpy appearance that accompanies skin tissue in this part of the body surrounding hair follicles. She has scar tissue from her surgeries, very well healed. Her abdominal wall is extremely firm from the tightened pull of the abdominal wall status post cosmetic surgery Her upper chest and neck have multiple tiny brown flecks consistent with minute skin tags. General: healthy appearing, comfortable, no acute distress, well developed and alert Nutritional Appearance: average body habitus Orientation/consciousness: patient oriented x3 Limitations: no limitations HEENT Head: Yes normocephalic Neck Neck: Yes normal visual inspection Chest Chest palpation & inspection: normal inspection of the chest Breast/axilla inspection: normal inspection of the breasts and normal inspection of the axillae Breast/axilla palpation: normal palpation of the breasts and normal palpation of the axillae Resp Effort & Inspection: normal respiratory effort GI Inspection: Yes normal to inspection, No Abdominal wall edema and No distended Palpation (GI): Soft to palpation and nontender Other: See the 1st section for the skin description Vagina is pink and moist with scant whitish discharge cervix appears nulliparous long close thick mobile firm slightly difficult to feel possibly secondary to patient is extremely taut abdominal musculature post abdominal plasty. Uterus nontender cervix nontender extremely good tone with Kegel. General: Yes bladder normal to palpation External Female Exam: normal external appearance and normal appearance of the urethra Speculum Exam - Vagina: normal appearance of the vagina, normal palpation and normal vaginal discharge Speculum Exam - Cervix: normal appearance of the cervix, normal palpation and nontender Bimanual exam- vagina & uterus: normal bimanual exam, normal palpation, uterine size normal, bladder normal to palpation, consistency normal, normal palpation, uterine mobility normal, uterine shape normal, No Cervical tenderness present, non-tender and no cervical motion tenderness Bimanual Exam- Adnexa, other: normal adnexae, no masses, normal and No adnexal tenderness Neuro General: patient oriented x3 Assessment & Plan Assessment & Plan (1) Screen for sexually transmitted diseases: Code(s): Z11.3 - Encounter for screening for infections with a predominantly sexual mode of transmission (2) Breast cancer screening: Code(s): Z12.39 - Encounter for other screening for malignant neoplasm of breast Qualifiers: Breast cancer screening modality: mammogram Qualified Code(s): Z12.31 - Encounter for screening mammogram for malignant neoplasm of breast (3) Well woman exam with routine gynecological exam: Code(s): Z01.419 - Encounter for gynecological examination (general) (routine) without abnormal findings (4) Cervical cancer screening: Comment: 03/15/21 pap= neg; patient requested Pap 08/27/2023 secondary to citing history of abnormal Pap some years ago in [place]. Pap done today... Code(s): Z12.4 - Encounter for screening for malignant neoplasm of cervix (5) Urinary retention with incomplete bladder emptying: Comment: Patient states the recent testing showed 0 residual she is continuing to pay attention to her symptoms. 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 Suggested availing herself of therapy or support. Code(s): F43.21 - Adjustment disorder with depressed mood Plan -----Discussed in this visit the following: healthy balanced diet, regular and consistent exercise, getting recommended health screens, doing the best she can for her particular health concerns, kegel exercises, pap smear screening and followup recommendations, mammography screening and SBE, normal changes in cycles in her life stage--- Discussed her many dermatological concerns I recommend she see her circulation assistant who she does have and make a list of all of her concerns and have a discussion about what the features are called and even if they are within the range of normal what she can do if anything to ameliorate them. Also discussed finding ways of dealing with the stress of everything going on in her life and considering being open to perhaps counseling or support to deal with her prolonged complicated grief. Discussed at some stage making piece with some of the changes that happen in her body with time as well also discussed doing her best to try and be mindful of weight gain so she does not add diabetes into the list of her health concerns she is aware of the familial tendencies and is aware she is at risk. Pap smear was done testing for gonorrhea chlamydia trichomoniasis Gardnerella and Kalpana and I also ordered blood work for HIV hep B hep C and syphilis. I reviewed her CBC was not that low she is on iron. She is up-to-date on mammograms. She is continuing to monitor her own urinary emptying and what things she can do to make sure she does her best voiding possible she has very good tone with Kegel so that would probably not be of use to send her to physical therapy Orders: Orders Bacterial Vaginosis Panel Today Z20.2 - Contact with and (suspected) exposure to infections with a predominantly sexual mode of transmission CT NG by PCR Today Z20.2 - Contact with and (suspected) exposure to infections with a predominantly sexual mode of transmission Pap Smear Today Z12.4 - Encounter for screening for malignant neoplasm of cervix HIV Ab/Ag Today Z01.419 - Encounter for gynecological examination (general) (routine) without abnormal findings, Z11.3 - Encounter for screening for infections with a predominantly sexual mode of transmission, Z12.39 - Encounter for other screening for malignant neoplasm of breast, Z12.4 - Encounter for screening for malignant neoplasm of cervix Hepatitis B Surface Antigen Today Z01.419 - Encounter for gynecological examination (general) (routine) without abnormal findings, Z11.3 - Encounter for screening for infections with a predominantly sexual mode of transmission, Z12.39 - Encounter for other screening for malignant neoplasm of breast, Z12.4 - Encounter for screening for malignant neoplasm of cervix Hepatitis C Antibody Today Z01.419 - Encounter for gynecological examination (general) (routine) without abnormal findings, Z11.3 - Encounter for screening for infections with a predominantly sexual mode of transmission, Z12.39 - Encounter for other screening for malignant neoplasm of breast, Z12.4 - Encounter for screening for malignant neoplasm of cervix Syphilis Screen Today Z01.419 - Encounter for gynecological examination (general) (routine) without abnormal findings, Z11.3 - Encounter for screening for infections with a predominantly sexual mode of transmission, Z12.39 - Encounter for other screening for malignant neoplasm of breast, Z12.4 - Encounter for screening for malignant neoplasm of cervix Coding Level of Care Code Est Pt Prev Care 40-64y(36953) Diagnoses Screen for sexually transmitted diseases Z11.3 Encounter for screening mammogram for malignant neoplasm of breast Z12.31 Breast cancer screening modality: mammogram Well woman exam with routine gynecological exam Z01.419 Cervical cancer screening Z12.4 Urinary retention with incomplete bladder emptying R33.9 Hx of cosmetic surgery Z98.890 Dermatological non-disease F45.22 Complicated grief F43.21
== END 2023-08-27 15:38 | disposition home or self-care (01) ==
LOC: HO.HWSM 14:12
PROVIDERS: PCP Physician Assistant; Visit Provider Advanced Practice Midwife
DX: Z01.419 Encounter for gynecological examination (general) (routine) without abnormal findings (principal); R33.9 Retention of urine, unspecified; Z98.890 Other specified postprocedural states; F45.22 Body dysmorphic disorder; F43.21 Adjustment disorder with depressed mood
CPT/HCPCS: 99396

== ENCOUNTER 2023-08-27 14:12 | Outpatient (REF) | payer OTHER, SELFPAY ==
[2023-08-27 18:44] LABS: CT PCR NOT DETECTED (Not Detect.); NG PCR NOT DETECTED (Not Detect.)
[2023-08-28 11:22] LABS: BV Int Neg Control Negative (Negative); BV Int Pos Control Positive (Positive)
[2023-08-31 22:14] LABS: HPV mRNA E6/E7 rflx Not Detected (Not Detected)
== END 2023-08-27 14:13 | disposition home or self-care (01) ==
LOC: HO.LNP 14:12
PROVIDERS: PCP Physician Assistant; Visit Provider Advanced Practice Midwife
DX: Z01.419 Encounter for gynecological examination (general) (routine) without abnormal findings (principal); R33.9 Retention of urine, unspecified; F45.22 Body dysmorphic disorder; F43.21 Adjustment disorder with depressed mood; Z20.2 Contact with and (suspected) exposure to infections with a predominantly sexual mode of transmission; Z98.890 Other specified postprocedural states
CPT/HCPCS: 0353U; 87480; 87510; 87624; 87660; 88142; 99396

== ENCOUNTER 2023-08-27 15:39 | Outpatient (REF) | payer OTHER, SELFPAY ==
[2023-08-28 08:09] LABS: Syphilis Screen Nonreactive (Nonreactive)
[2023-08-28 08:32] LABS: HBsAGNum1 0.43 S/CO (0.00-0.99); HIV AB/AG Nonreactive (Nonreactive); HIV Num 1 0.06 S/CO (0.00-0.99); Hepatitis B Surface Antigen Negative (Negative); ~HepC Num1 0.22 S/CO (0.00-0.79); ~Hepatitis C Antibody Nonreactive (Nonreactive)
== END 2023-08-27 15:40 | disposition home or self-care (01) ==
LOC: HO.HHCL 15:39
PROVIDERS: Visit Provider Advanced Practice Midwife
DX: Z01.419 Encounter for gynecological examination (general) (routine) without abnormal findings (principal); Z20.2 Contact with and (suspected) exposure to infections with a predominantly sexual mode of transmission
CPT/HCPCS: 36415; 86780; 86803; 87340; 87389

== ENCOUNTER 2023-10-11 10:07 | Day surgery (SDC) | payer OTHER, SELFPAY ==
[2023-07-03 12:22] VITALS: BMI 31.5
--- NOTE | 2023-07-04 10:11 | P.CONAN_ITS ---
HPI - Anesthesia Eval Consult details Narrative: Resched to 09/2023 47yo F for Colonoscopy Cardiac cleared (seen for symptomatic palps): Patient has findings of sinus tachycardia. Echo shows normal EF. Recent Holter shows normal sinus rhythm with average heart rate 84, 15% time greater than 100. She has anxiety and did have anemia which is now improved. She can proceed colonoscopy with low cardiac risk. s/p tubal PMFSH Active Problems Active Problems: All Active Problems (Updated 04/05/23 @ 07:48 by Rome Redmond PA-C) Intermittent palpitations (Acute) Pruritic erythematous rash (Acute) Iron deficiency anemia (Acute) Colon cancer screening (Acute) Contact dermatitis (Acute) Low vitamin D level (Acute) Heel pain (Acute) Toenail fungus (Acute) Screen for sexually transmitted diseases (Acute) Breast cancer screening (Acute) Well woman exam with routine gynecological exam (Acute) Bunion of left foot (Acute) Thrush (Acute) Annual physical exam (Acute) Impaired glucose metabolism (Acute) Urinary frequency (Acute) Proteinuria (Acute) Obese (Acute) GERD (gastroesophageal reflux disease) (Acute) Cervical cancer screening (Acute) Screening for hypothyroidism (Acute) Screening for hypercholesterolemia (Acute) H/O urinary retention (Acute) Screening for diabetes mellitus (DM) (Acute) Annual physical exam (Acute) Well woman exam with routine gynecological exam (Acute) Urinary frequency (Acute) Vaginal burning (Acute) UTI (urinary tract infection) (Acute) H/O Webb's palsy (Acute) Frequent headaches (Acute) Past Medical History Medical History Bunion of left foot Urinary frequency Proteinuria delivery delivered Gallbladder polyp Family History Family History Mother Ovarian cancer Father Prostate cancer Surgical History Surgical History History of tubal ligation Social History Social History Housing: House Alcohol intake: current Alcohol intake frequency: holidays/special occasions only Patient Tobacco Use Status: Never used Tobacco Tobacco use type: Cigarette e-Cigarette/Vaping Use: Never Used Second Hand Smoke Exposure: No Current occupational status: employed 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 Cognitive needs: No Hearing needs: No Vision needs: No Meds Allergies Allergy/AdvReac Type Severity Reaction Status Date / Time ibuprofen Allergy Severe Swelling Verified 07/02/23 15:02 aspirin [ASPIRIN] Allergy Unknown SWELLING Verified 07/02/23 15:02 Home Medications Medication Instructions Recorded Confirmed Last Taken Type bisacodyl 5 mg tablet,delayed 10 mg PO DAILY 07/04/23 Unknown History release (Laxative (bisacodyl)) cholecalciferol (vitamin D3) 25 25 mcg PO DAILY 07/04/23 Unknown History mcg (1,000 unit) tablet ferrous fumarate 325 mg (106 mg 325 mg PO BID 07/04/23 Unknown History iron) tablet (Ferretts) fluocinonide 0.05 % topical cream appl topical 07/04/23 Unknown History meclizine 25 mg tablet 25 mg PO BID PRN dizziness 07/04/23 Unknown History ondansetron 4 mg disintegrating 4 mg PO Q8H PRN nausea/vomiting 07/04/23 Unknown History tablet polyethylene glycol 3350 17 g PO 07/04/23 Unknown History gram/dose oral powder (Gavilax) prednisone 10 mg tablet mg PO 07/04/23 Unknown History triamcinolone acetonide 0.1 % appl topical DAILY 07/04/23 Unknown History topical cream Exam Height,Weight and Vital Signs: Height 5 ft 6 in Weight 88.451 kg Pertinent Lab Results Pertinent Lab Results: Laboratory Tests 02/26/23 05/03/23 12:40 13:45 WBC 8.2 Hgb 12.5 Hct 39.8 Plt Count 364 D Sodium 140 Potassium 4.2 Chloride 104 Carbon Dioxide 24 BUN 6 L Creatinine 0.74 Narrative Narrative: ECHO 2022 Conclusions: - The left ventricular systolic function is normal. The calculated ejection fraction is 66% by biplane method. - No obvious valvular pathology seen on this study. - There is mild dilatation of the ascending aorta measuring 3.90 cm. Holter 04/2023 * Total monitoring time 14 days. * Underlying rhythm is sinus average rate of 84/Min. Range 50 to 172/Min. About 15% of the time, rate greater than 100/Min. * Rare supraventricular ectopy. * No sustained arrhythmias. * No significant pauses or AV blocks. * No patient markers or diary events. Assessment and Plan Assessment Anesthesia Assessment: Chart Reviewed
--- NOTE | 2023-10-10 08:39 | P.CONAN_ITS ---
HPI - Anesthesia Eval Consult details Narrative: 47yo F for Colonoscopy Cardiac cleared (seen for symptomatic palps): Patient has findings of sinus tachycardia. Echo shows normal EF. Recent Holter shows normal sinus rhythm with average heart rate 84, 15% time greater than 100. She has anxiety and did have anemia which is now improved. She can proceed colonoscopy with low cardiac risk. s/p tubal PMFSH Active Problems Active Problems: All Active Problems Complicated grief (Acute) Dermatological non-disease (Acute) Hx of cosmetic surgery (Acute) Urinary retention with incomplete bladder emptying (Acute) Upper respiratory infection (Acute) Intermittent palpitations (Acute) Pruritic erythematous rash (Acute) Iron deficiency anemia (Acute) Colon cancer screening (Acute) Contact dermatitis (Acute) Low vitamin D level (Acute) Heel pain (Acute) Toenail fungus (Acute) Screen for sexually transmitted diseases (Acute) Breast cancer screening (Acute) Well woman exam with routine gynecological exam (Acute) Bunion of left foot (Acute) Thrush (Acute) Annual physical exam (Acute) Impaired glucose metabolism (Acute) Urinary frequency (Acute) Proteinuria (Acute) Obese (Acute) GERD (gastroesophageal reflux disease) (Acute) Cervical cancer screening (Acute) Screening for hypothyroidism (Acute) Screening for hypercholesterolemia (Acute) H/O urinary retention (Acute) Screening for diabetes mellitus (DM) (Acute) Annual physical exam (Acute) Well woman exam with routine gynecological exam (Acute) Urinary frequency (Acute) Vaginal burning (Acute) UTI (urinary tract infection) (Acute) H/O Webb's palsy (Acute) Frequent headaches (Acute) Past Medical History Medical History (Updated 09/14/23 @ 09:42 by Kandy Willett CNM) Bunion of left foot Urinary frequency Proteinuria delivery delivered Gallbladder polyp Family History Family History (Updated 08/27/23 @ 14:28 by SANDY Chin) Mother Ovarian cancer Father Prostate cancer Maternal Uncle Colon cancer Surgical History Surgical History (Updated 08/27/23 @ 15:35 by Kandy Willett CNM) Hx of section Hx of cosmetic surgery History of tubal ligation Social History Social History Housing: House Alcohol intake: current Alcohol intake frequency: holidays/special occasions only Patient Tobacco Use Status: Never used Tobacco Tobacco use type: Cigarette e-Cigarette/Vaping Use: Never Used Second Hand Smoke Exposure: No Current occupational status: employed 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 Cognitive needs: No Hearing needs: No Vision needs: No Meds Allergies Allergy/AdvReac Type Severity Reaction Status Date / Time ibuprofen Allergy Severe Swelling Verified 08/27/23 14:26 aspirin [ASPIRIN] Allergy Unknown SWELLING Verified 08/27/23 14:26 Exam Height,Weight and Vital Signs: Height 5 ft 6 in Weight 88.451 kg Pertinent Lab Results Pertinent Lab Results: Laboratory Tests 08/02/23 11:03 WBC 9.0 Hgb 11.4 L Hct 36.1 L Plt Count 337 Sodium 141 Potassium 4.2 Chloride 102 Carbon Dioxide 28 BUN 8 L Creatinine 0.71 Narrative Narrative: ECHO 2022 Conclusions: - The left ventricular systolic function is normal. The calculated ejection fraction is 66% by biplane method. - No obvious valvular pathology seen on this study. - There is mild dilatation of the ascending aorta measuring 3.90 cm. Holter 04/2023 * Total monitoring time 14 days. * Underlying rhythm is sinus average rate of 84/Min. Range 50 to 172/Min. About 15% of the time, rate greater than 100/Min. * Rare supraventricular ectopy. * No sustained arrhythmias. * No significant pauses or AV blocks. * No patient markers or diary events. Assessment and Plan Assessment Anesthesia Assessment: Chart Reviewed
[2023-10-11 10:22] VITALS: BMI 31.8
[2023-10-11 10:26] VITALS: BP 123/87; PULSE 99; RESP 18; TEMP 36.7; O2SAT 97; BMI 31.8
--- NOTE | 2023-10-11 10:41 | MHC.SHP ---
Pre-Procedural Eval Section A - 24 Hr Update-Section A only Date of Service: 10/11/23 Section B - Complete if H&P > 30 days Chief Complaint: Encounter for screening for malignant neoplasm of Details of Present Illness: Bunion of left foot delivery delivered Gallbladder polyp Proteinuria Urinary frequency Surgical History History of tubal ligation Family History Mother Ovarian cancer Father Prostate cancer Allergies: Allergies Allergy/AdvReac Type Severity Reaction Status Date / Time ibuprofen Allergy Severe Swelling Verified 10/11/23 10:20 aspirin [ASPIRIN] Allergy Unknown SWELLING Verified 10/11/23 10:20 Review of Systems Review of Systems Comment: Ten point ROS negative Exam Exam Comment: Gen appear: No acute distress HEENT: no icterus Chest: No overt resp distress Abd: soft, nontender, nondistended Psych: Stable affect, answering questions appropriately Neuro: A/Ox3 noted to move all extremities spontaneously Ext: no peripheral edema Plan Diagnosis/Plan: Unchanged I have reviewed the history and physical and performed a pertinent physical examination on my patient. No changes have occurred unless specified. Time Spent With Patient Time: Total time managing care of this patient today ____ minutes.
--- NOTE | 2023-10-11 10:51 | P.OPN-COLO_ITS ---
Colonoscopy Operative Note Operative Note Date of Service: 10/11/23 Narrative: Procedure: Colonoscopy Indication: Screening Endoscopist: Carmen Harrington MD Anesthesia Provider: Margie Flowers CRNA Anesthesia type: MAC Instrument: Olympus [id number]-[id number] Consent: Indication, risks vs benefits, and alternatives were discussed with the patient who gave written informed consent to proceed. EKG, pulse, pulse oximetry and blood pressure were monitored throughout the procedure. Please see anesthesia flowsheet. Procedure: The patient was brought to the procedure room and placed in the left lateral decubitus position. IV medications were administered by the anesthesia provider in attendance. A digital rectal exam was performed which was normal. A distal attachment cap was affixed to the tip of the colonoscope which was then inserted through the anus and advanced through the colon to the cecum at 80 cm. Appendiceal orifice and ileocecal valve were identified. Mucosa was carefully examined under high definition white light as the instrument was slowly withdrawn in a retrograde panoramic fashion. Retroflexion was performed in rectum. The procedure was not difficult. There were no immediate obvious complications. The quality of the prep was BBPS: 2+3+3 = adequate Withdrawal time 8 minutes. Limitations: No limitations. Findings: Mucosa: Normal to cecum. Protruding lesions: * Medium internal hemorrhoids without stigmata of recent bleeding. Impression: 1. Normal colon mucosa 2. Internal hemorrhoids Recommendations: * Repeat colonoscopy for asymptomatic colorectal cancer screening recommended in 10 years.
[2023-10-11 11:23] VITALS: BP 105/62; PULSE 89; RESP 16; TEMP 36.4; O2SAT 98
[2023-10-11 11:38] VITALS: BP 117/82; PULSE 77; RESP 16; TEMP 36.3; O2SAT 99
== END 2023-10-11 12:08 | disposition home or self-care (01) ==
PROVIDERS: PCP Physician Assistant; Visit Provider Internal Medicine
PROC: 0DJD8ZZ Inspection of Lower Intestinal Tract, Via Natural or Artificial Opening Endoscopic (ICD-10-PCS; CPT 45378; principal; 2023-10-11 13:00)
DX: Z12.11 Encounter for screening for malignant neoplasm of colon (principal); K64.8 Other hemorrhoids; Z88.6 Allergy status to analgesic agent
CPT/HCPCS: 45378; J2250; J2704

== ENCOUNTER → 2023-10-11 10:07 | Outpatient (BNV) | payer OTHER, SELFPAY | PROVIDERS: PCP Physician Assistant; Visit Provider Internal Medicine | DX: Z12.11 Encounter for screening for malignant neoplasm of colon (principal); K64.8 Other hemorrhoids | CPT/HCPCS: 45378 ==

== ENCOUNTER 2023-10-25 11:13 | Outpatient (AMB) | payer OTHER, SELFPAY ==
--- NOTE | 2023-10-25 11:20 | A.OFFVIS_ITS ---
Vital Signs 10/25/23 11:21 Height 5 ft 6 in Weight 190 lb 7.67 oz BMI 30.7 BP 128/88 Blood Pressure Location Rt brachial Position Sitting Pulse 100 Pulse Source Pulse Oximeter Pulse Oximetry (%) 98 Oxygen Delivery Method Room Air Intake Visit Reasons: s/p colon Intake Note: Mariana presents today for FUV colo. CC; Pt has no additional concerns or sx today. Allergies ibuprofen Allergy (Severe, Verified 10/25/23 11:26) Swelling aspirin [ASPIRIN] Allergy (Unknown, Verified 10/25/23 11:26) SWELLING HPI HPI s/p colon: Details: LAST VISIT Colon cancer screening Patient denies any GI, cardiac or respiratory symptoms. However patient had episode of palpitation about a month ago or so and was referred to see clerical support. Has an appointment with him in April. Will send message to see if patient can be cleared before procedure.? Denies any issues with anesthesia in the past.? Denies any history of sleep apnea.? No history infectious diseases in the past or present.? Not on any anticoagulation therapy.? Patient's maternal phone call of colorectal cancer at early age in his 40s. ? Patient denies melena, hematochezia, unintentional weight loss or ribbon like stools.? Discussed at length the pre-procedure,? prep, diet & medications as well as what to expect prior, during and after the procedure.?? Stressed the importance of good bowel prep. ?Recommended the use of Vaseline or Calmoseptine OTC & baby w ipes with bowel movements to promote comfort.? ?Patient verbalizes understanding and agrees to plan of care.? She was given the opportunity to ask questions and all questions answered.? We will see her after the procedure.? Plan Medications New polyethylene glycol 3350 (Miralax) As directed by gastroenterology department at [facility] 238 grams PO ONCE 238 grams 0RF Z12.11 bisacodyl (Dulcolax (bisacodyl)) take 2 tabs at noon the day before your colonoscopy 10 mg (2 x 5 mg) PO ONCE 1 day 2 tabs 0RF Z12.11 COLONOSCOPY Findings: Mucosa: Normal to cecum. Protruding lesions: * Medium internal hemorrhoids without stigmata of recent bleeding. Impression: 1. Normal colon mucosa 2. Internal hemorrhoids Recommendations: * Repeat colonoscopy for asymptomatic colorectal cancer screening recommended in 10 years. TODAY'S VISIT Patient denies any ill effects from the prep, anesthesia or procedure itself. Moving her bowels well. Denies melena, hematochezia. Normal colonoscopy, small internal hemorrhoids found. Patient reports that maternal brother had colorectal cancer. Patient reports that he in his 40s. Patient denies dyspepsia, dysphagia or odynophagia. Occasional acid reflux depending on what she eats. [facility] Medical History (Updated 10/25/23 @ 11:[address] [facility]) Family history of colorectal cancer Bunion of left foot Urinary frequency Proteinuria delivery delivered Gallbladder polyp Surgical History (Updated 10/25/23 @ 11:23 by SANDY Mcghee) Hx of colonoscopy Hx of section Hx of cosmetic surgery History of tubal ligation Family History Mother Ovarian cancer Father Prostate cancer Maternal Uncle Colon cancer Social History Housing: House Alcohol intake: current Alcohol intake frequency: holidays/special occasions only Patient Tobacco Use Status: Never used Tobacco Tobacco use type: Cigarette e-Cigarette/Vaping Use: Never Used Second Hand Smoke Exposure: No Current occupational status: employed 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 Cognitive needs: No Hearing needs: No Vision needs: No Female Reproductive History Menstrual Age of Menarche: 16 Physical Exam Vital Signs: Last Vital Signs Pulse 100 10/25/23 11:21 BP 128/88 10/25/23 11:21 Pulse Ox 98 10/25/23 11:21 Oxygen Delivery Method Room Air 10/25/23 11:21 BMI result Body Mass Index 30.7 Assessment & Plan Assessment & Plan (1) GERD (gastroesophageal reflux disease): Code(s): K21.9 - Gastro-esophageal reflux disease without esophagitis Category: Medical Qualifiers: Esophagitis presence: without esophagitis Qualified Code(s): K21.9 - Gastro-esophageal reflux disease without esophagitis (2) Family history of colorectal cancer: Code(s): Z80.0 - Family history of malignant neoplasm of digestive organs Category: Medical (3) Status post colonoscopy: Code(s): Z98.890 - Other specified postprocedural states (4) Hemorrhoids without complication: Code(s): K64.9 - Unspecified hemorrhoids Plan Normal colonoscopy, however due to family history of CRC patient will return for colorectal screening in 5 years. Follow-up in the office on as needed basis. High-fiber diet, probiotics. Avoid dietary triggers and late night snacking. Patient is agreeable to current plan of care and verbalizes understanding of instructions. She was given the opportunity to ask questions and all questions answered. Thank you for allowing me to participate in her care Coding Level of Care Code Est Pt Level 3 (04322) Diagnoses Gastroesophageal reflux disease without esophagitis K21.9 Esophagitis presence: without esophagitis Family history of colorectal cancer Z80.0 Status post colonoscopy Z98.890 Hemorrhoids without complication K64.9 Time Spent (min) 25 Comment 15 minutes spent with patient and additional 10 minutes spent reviewing her records
[2023-10-25 11:21] VITALS: BP 128/88; PULSE 100; O2SAT 98; BMI 30.7
== END 2023-10-25 12:07 | disposition home or self-care (01) ==
PROVIDERS: PCP Physician Assistant; Visit Provider Nurse Practitioner Family
DX: K21.9 Gastro-esophageal reflux disease without esophagitis (principal); Z80.0 Family history of malignant neoplasm of digestive organs; Z98.890 Other specified postprocedural states; K64.9 Unspecified hemorrhoids
CPT/HCPCS: 99213

== ENCOUNTER → 2023-10-25 11:13 | Outpatient (BNVA) | payer OTHER, SELFPAY | PROVIDERS: PCP Physician Assistant; Visit Provider Nurse Practitioner Family | DX: K21.9 Gastro-esophageal reflux disease without esophagitis (principal); K64.9 Unspecified hemorrhoids; Z80.0 Family history of malignant neoplasm of digestive organs; Z98.890 Other specified postprocedural states | CPT/HCPCS: 99212 ==

== ENCOUNTER 2023-11-12 08:48 | Outpatient (AMB) | payer OTHER, SELFPAY ==
[2023-11-12 09:00] VITALS: BP 118/84; BMI 31.1
--- NOTE | 2023-11-12 09:00 | A.OFFPC_ITS ---
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 She reports over the last few weeks having allergy type symptoms and some right eye discomfort over the last 4 weeks. Has tried [id number] cough cold medications without much relief. She denies any sick contacts at home. There has been no productivity of the cough. She denies having any fevers or chills. [facility] Medical History (Updated 11/12/23 @ 09:25 by Rome Redmond PA-C) Family history of colorectal cancer Bunion of left foot Urinary frequency Proteinuria delivery delivered Gallbladder polyp Surgical History Hx of colonoscopy Hx of section Hx of cosmetic surgery History of tubal ligation Family History Mother Ovarian cancer Father Prostate cancer Maternal Uncle Colon cancer Social History Housing: House Alcohol intake: current Alcohol intake frequency: holidays/special occasions only Patient Tobacco Use Status: Never used Tobacco e-Cigarette/Vaping Use: Never Used Second Hand Smoke Exposure: No service: No Current occupational status: employed 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 Rocco Velasquez, Isi Rodriguez, Arian Mehta and colleagues, with an educational marsha from [employer]. Review of Systems Const Denies headache(s) Eyes Denies loss of vision ENT Denies vertigo, Denies dizziness, Denies headache(s) and Denies sore throat Card Denies chest pain, Denies leg edema and Denies lightheadedness Resp Reports cough, Denies hemoptysis and Denies wheezing GI Denies abdominal pain, Denies melena, Denies constipation, Denies diarrhea and Denies vomiting Denies urinary frequency, Denies dysuria and Denies urinary urgency Musc Denies arthralgias, Denies joint swelling, Denies numbness and Denies tingling Neuro Denies Abnormal speech present, Denies behavioral changes, Denies vertigo, Denies dizziness, Denies headache(s), Denies loss of vision, Denies memory loss, Denies numbness and Denies tingling Psych Denies anxiety, Denies behavioral changes, Denies depression, Denies memory loss and Denies panic attacks Aditya/Lymph Denies easy bleeding and Denies easy bruising Aller/Immun Denies wheezing Physical exam (Primary Care) Vital Signs: Last Vital Signs BP 118/84 11/12/23 09:00 BMI result Body Mass Index 31.1 Tobacco/Smoking Status: Tobacco use Status Tobacco use date assessed 08/02/23 11/12/23 09:04 Patient Tobacco Use Status Never used Tobacco 11/12/23 09:04 Tobacco use type 11/12/23 09:04 e-Cigarette/Vaping Use Never Used 11/12/23 09:04 Thrive Assessment: Date of Thrive Assessment Date Thrive assessed 08/02/23 11/12/23 09:04 Const General: healthy appearing, no acute distress, alert and awake Nutritional Appearance: well nourished Orientation/consciousness: oriented to person, oriented to place and oriented to time HENMT Ears: TM's normal bilaterally General nose exam: Normal nasal mucous membranes and turbinates present Eyes Conjunctivae: conjunctivae normal Sclerae: sclerae normal Pupils: Equal, round and reactive pupils present Neck Neck: Yes no lymphadenopathy and Yes no JVD Thyroid: Thyroid normal Carotids: no bruits Resp Effort & Inspection: normal respiratory effort and not tachypneic Auscultation: no crackles, no rales, no rhonchi and no wheezes Cardio Rate: regular rate Rhythm: regular rhythm Heart sounds: no murmurs and normal S1 and S2 GI Palpation (GI): Soft to palpation, nontender, no hepatomegaly and no splenomegaly Auscultation: normal bowel sounds Skin General skin exam: no rashes or lesions noted and dry skin Neuro General: oriented to person, oriented to place and oriented to time Cranial nerves: Yes Equal, round and reactive pupils present Speech: No Abnormal speech present Gait exam (Neuro): Normal gait present Motor exam (neuro): no tremor noted Extrem Right upper extremity: full ROM Left upper extremity: full ROM Right lower extremity: full ROM; no edema Left lower extremity: full ROM; no edema Psych Mental Status: mental status grossly normal Speech and movement: Normal speech and movement present Affect: normal affect Attitude: cooperative Thought process: Normal thought process present Assessment and Plan Assessment & Plan (1) Allergic blepharitis: Code(s): H01.119 - Allergic dermatitis of unspecified eye, unspecified eyelid Qualifiers: Eyelid: both upper and lower Laterality: right Qualified Code(s): H01.111 - Allergic dermatitis of right upper eyelid; H01.112 - Allergic dermatitis of right lower eyelid Plan: Patient's signs and symptoms most consistent with allergies . Will advise on taking allergy medication and allergy eye drops. (2) Cough: Code(s): R05.9 - Cough, unspecified Qualifiers: Cough type: subacute Qualified Code(s): R05.2 - Subacute cough Plan: Has a dry nonproductive cough over the last 4 weeks. Signs symptoms most consistent with an upper respiratory inflammation likely due to allergies. Will supply patient with an allergy medication. Will send for x-ray to evaluate for any evidence of walking pneumonia. Orders: Orders XR chest 2V Today R05.9 - Cough, unspecified Medications: New olopatadine 0.2% (Pataday Once Daily Relief) 1 drp ophthalmic (eye) DAILY 2.5 mL 0RF 4 weeks H01.111 - Allergic dermatitis of right upper eyelid, H01.112 - Allergic dermatitis of right lower eyelid loratadine 10 mg PO DAILY 30 tabs 3RF 30 days R05.9 - Cough, unspecified Coding Level of Care Code Est Pt Level 3 (68903) Diagnoses Allergic dermatitis of upper and lower eyelid of right eye H01.111; H01.112 Eyelid: both upper and lower Laterality: right Subacute cough R05.2 Cough type: subacute
== END 2023-11-12 09:25 | disposition home or self-care (01) ==
PROVIDERS: PCP Physician Assistant; Visit Provider Physician Assistant
DX: H01.111 Allergic dermatitis of right upper eyelid (principal); H01.112 Allergic dermatitis of right lower eyelid; R05.2 Subacute cough
CPT/HCPCS: 99213

== ENCOUNTER 2023-11-20 14:44 | Outpatient (REF) | payer OTHER, SELFPAY ==
--- NOTE | ~2023-11-20 | XR_ITS ---
EXAMINATION: XR CHEST CLINICAL INFORMATION: Cough unspecified. COMPARISON: 12/24/2022 TECHNIQUE: 2 views of the chest were obtained. FINDINGS: The lungs are well inflated. Dextroscoliosis of the thoracic spine with multilevel degenerative changes. Heart size is normal. Stable cardiomediastinal silhouette. No pleural effusion. No focal consolidation to suggest pneumonia. XR/XR chest 2V IMPRESSION: No evidence of pneumonia.
== END 2023-11-20 14:45 | disposition home or self-care (01) ==
LOC: HO.XRAY 14:44
PROVIDERS: PCP Physician Assistant; Visit Provider Physician Assistant
DX: R05.9 Cough, unspecified (principal)
CPT/HCPCS: 71046

== ENCOUNTER 2023-12-11 10:17 | Outpatient (AMB) | payer OTHER, SELFPAY ==
[2023-12-11 10:32] VITALS: BP 132/76; PULSE 116; O2SAT 98; BMI 31.7
--- NOTE | 2023-12-11 10:32 | A.OFFPC_ITS ---
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 Blood Donor Recruiters Required: No Accompanied by: Self / Same As Patient Allergies ibuprofen Allergy (Severe, Verified 12/11/23 10:44) Swelling aspirin [ASPIRIN] Allergy (Unknown, Verified 12/11/23 10:44) SWELLING Medication List - Last Reconciled 12/11/23 by Rome Redmond PA-C cholecalciferol (vitamin D3) 25 mcg PO DAILY ferrous fumarate 325 mg PO DAILY 90 days loratadine 10 mg PO DAILY 30 days olopatadine 0.2% (Pataday Once Daily Relief) 1 drp ophthalmic (eye) DAILY 4 weeks Tobacco use date assessed: 08/02/23 Dental Screening Dental Screen Date: 08/02/23 HPI 4 Month F/U HPI Details Patient is a 48-year-old female here today for a follow-up visit Patient has a past medical history significant for GERD, obesity, proteinuria. .. Anxiety: She has been experiencing more anxious type symptoms since she has suffered trauma over the last year and a half. She is not interested in any mental health medications though is considering calling a mental health therapist and starting up with cognitive behavioral therapy.. .. Heart palpitations: Has gotten echocardiogram and cardiac Holter monitor which were essentially normal. Patient's palpitations thought to be related to her anxiety. . Iron deficiency anemia: Was on iron supplementation previously in her hem oglobin had normalized. She is now off of iron supplementation would like repeat labs to see if her hemoglobin goes down. She does report still having menstruations that are fairly heavy at times. .. Impaired glucose metabolism: Most recent A1c of 5.9. She reports she was not fasting for these labs. She is not interested in any diabetic medication at this time will like to work on lifestyle modifications to control her blood sugars. PLAN: Will work diligently on lifestyle and dietary modifications Laboratory Tests 05/03/23 08/02/23 13:45 11:03 RBC 4.81 Hgb 12.5 11.4 L Creatinine 0.71 Hemoglobin A1c % 5.9 TIBC 369 Plasma Free Metane ph 58 H Plasma Free Normet a 106 PFSH Medical History (Updated 12/11/23 @ 10:58 by Rome Redmond PA-C) Family history of colorectal cancer Bunion of left foot Urinary frequency Proteinuria delivery delivered Gallbladder polyp Surgical History Hx of colonoscopy Hx of section Hx of cosmetic surgery History of tubal ligation Family History Mother Ovarian cancer Father Prostate cancer Maternal Uncle Colon cancer Social History Housing: House Alcohol intake: current Alcohol intake frequency: holidays/special occasions only Patient Tobacco Use Status: Never used Tobacco e-Cigarette/Vaping Use: Never Used Second Hand Smoke Exposure: No service: No Current occupational status: employed 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 Rocco Velasquez, Isi Rodriguez, Arian Mehta and colleagues, with an educational marsha from [employer]. Review of Systems Const Denies headache(s) Eyes Denies loss of vision ENT Denies vertigo, Denies dizziness, Denies headache(s) and Denies sore throat Card Denies chest pain, Denies leg edema and Denies lightheadedness Resp Denies cough, Denies hemoptysis and Denies wheezing GI Denies abdominal pain, Denies melena, Denies constipation, Denies diarrhea and Denies vomiting Denies urinary frequency, Denies dysuria and Denies urinary urgency Musc Denies arthralgias, Denies joint swelling, Denies numbness and Denies tingling Neuro Denies Abnormal speech present, Denies behavioral changes, Denies vertigo, Denies dizziness, Denies headache(s), Denies loss of vision, Denies memory loss, Denies numbness and Denies tingling Psych Denies anxiety, Denies behavioral changes, Denies depression, Denies memory loss and Denies panic attacks Aditya/Lymph Denies easy bleeding and Denies easy bruising Aller/Immun Denies wheezing Physical exam (Primary Care) Vital Signs: Last Vital Signs Pulse 116 H 12/11/23 10:32 BP 122/76 12/11/23 10:53 Pulse Ox 98 12/11/23 10:32 Oxygen Delivery Method Room Air 12/11/23 10:32 BMI result Body Mass Index 31.7 Tobacco/Smoking Status: Tobacco use Status Tobacco use date assessed 08/02/23 12/11/23 10:33 Patient Tobacco Use Status Never used Tobacco 12/11/23 10:33 Tobacco use type 11/20/23 14:44 e-Cigarette/Vaping Use Never Used 12/11/23 10:33 Thrive Assessment: Date of Thrive Assessment Date Thrive assessed 08/02/23 12/11/23 10:33 Const General: healthy appearing, no acute distress, alert and awake Nutritional Appearance: well nourished Orientation/consciousness: oriented to person, oriented to place and oriented to time HENMT Ears: TM's normal bilaterally General nose exam: Normal nasal mucous membranes and turbinates present Eyes Conjunctivae: conjunctivae normal Sclerae: sclerae normal Pupils: Equal, round and reactive pupils present Neck Neck: Yes no lymphadenopathy and Yes no JVD Thyroid: Thyroid normal Carotids: no bruits Resp Effort & Inspection: normal respiratory effort and not tachypneic Auscultation: no crackles, no rales, no rhonchi and no wheezes Cardio Rate: regular rate Rhythm: regular rhythm Heart sounds: no murmurs and normal S1 and S2 GI Palpation (GI): Soft to palpation, nontender, no hepatomegaly and no splenomegaly Auscultation: normal bowel sounds Skin General skin exam: no rashes or lesions noted and dry skin Neuro General: oriented to person, oriented to place and oriented to time Cranial nerves: Yes Equal, round and reactive pupils present Speech: No Abnormal speech present Gait exam (Neuro): Normal gait present Motor exam (neuro): no tremor noted Extrem Right upper extremity: full ROM Left upper extremity: full ROM Right lower extremity: full ROM; no edema Left lower extremity: full ROM; no edema Psych Mental Status: mental status grossly normal Speech and movement: Normal speech and movement present Affect: normal affect Attitude: cooperative Thought process: Normal thought process present Assessment and Plan Assessment & Plan (1) Iron deficiency anemia: Code(s): D50.9 - Iron deficiency anemia, unspecified Qualifiers: Iron deficiency anemia type: unspecified iron deficiency Qualified Code(s): D50.9 - Iron deficiency anemia, unspecified Plan: Has a history of iron-deficiency anemia. Unclear if this is due to ct scan technologist blood loss. She will restart her iron supplementation. She is willing to get CBC and iron studies again. (2) Grief at loss of child: Code(s): F43.21 - Adjustment disorder with depressed mood; Z63.4 - Disappearance and of family member Plan: She is interested in cognitive behavioral therapy. She does have a personal mental health therapist she will call. She is not interested in any anxiety or depression medication at this time (3) ABDOULAYE (generalized anxiety disorder): Code(s): F41.1 - Generalized anxiety disorder Plan: As per HPI patient does seem to be suffering with anxiety disorder. Not interested in mental health medication at this time though will like to establish care with a mental health therapist to start cognitive behavioral therapy due to her previous trauma. (4) Impaired glucose metabolism: Code(s): R73.09 - Other abnormal glucose Plan: Patient does have prediabetes with A1c of 5.9. She will work on dietary and lifestyle modifications to reduce her fasting blood sugars and A1c. Orders: Orders IRON PROFILE 12/11/23 D50.9 - Iron deficiency anemia, unspecified Hemoglobin A1c 12/11/23 R73.09 - Other abnormal glucose Comprehensive [place]. Panel Fast 12/11/23 R73.09 - Other abnormal glucose Complete Blood Count no Diff 12/11/23 D50.9 - Iron deficiency anemia, unspecified Vitamin D 25-OH Total 12/11/23 E55.9 - Vitamin D deficiency, unspecified Coding Level of Care Code Est Pt Level 4 (43800) Diagnoses Iron deficiency anemia, unspecified iron deficiency anemia type D50.9 Iron deficiency anemia type: unspecified iron deficiency Grief at loss of child F43.21; Z63.4 ABDOULAYE (generalized anxiety disorder) F41.1 Impaired glucose metabolism R73.09
[2023-12-11 10:53] VITALS: BP 122/76
== END 2023-12-11 11:04 | disposition home or self-care (01) ==
PROVIDERS: PCP Physician Assistant; Visit Provider Physician Assistant
DX: D50.9 Iron deficiency anemia, unspecified (principal); F43.21 Adjustment disorder with depressed mood; Z63.4 Disappearance and death of family member; F41.1 Generalized anxiety disorder; R73.09 Other abnormal glucose
CPT/HCPCS: 99214

== ENCOUNTER 2024-01-03 13:43 | Outpatient (REF) | payer OTHER, SELFPAY ==
[2024-01-03 14:17] LABS: Hematocrit 33.9 % (37.0-47.0); Hemoglobin 10.6 g/dl (12.0-16.0); Mean Corpuscular HGB Conc 31.3 g/dl (31.0-35.0); Mean Corpuscular Hemoglobin 24.7 pg (27.0-33.0); Mean Corpuscular Volume 78.8 fL (80.0-98.0); Platelet Count 282 X10*3/uL (160-400); Red Cell Distribution Width 16.2 % (11.0-16.0); White Blood Count 7.1 X10*3/uL (4.8-10.8)
== END 2024-01-03 13:44 | disposition home or self-care (01) ==
LOC: HO.LAB 13:43
PROVIDERS: PCP Physician Assistant; Visit Provider Physician Assistant
DX: R19.7 Diarrhea, unspecified (principal)
CPT/HCPCS: 36415; 85027

== ENCOUNTER 2024-01-05 09:36 | Outpatient (REF) | payer OTHER, SELFPAY ==
[2024-01-05 10:32] LABS: Leukocytes Stool Qualitative NEGATIVE (NEGATIVE)
== END 2024-01-05 09:37 | disposition home or self-care (01) ==
LOC: HO.LNP 09:36
PROVIDERS: Visit Provider Physician Assistant
DX: R19.7 Diarrhea, unspecified (principal)
CPT/HCPCS: 87329; 89055

== ENCOUNTER → 2024-03-20 10:15 | Outpatient (BNV) | payer OTHER, SELFPAY | PROVIDERS: PCP Physician Assistant; Visit Provider Internal Medicine | DX: Z12.31 Encounter for screening mammogram for malignant neoplasm of breast (principal) | CPT/HCPCS: 77063; 77067 ==

== ENCOUNTER 2024-03-20 10:19 | Outpatient (REF) | payer OTHER, SELFPAY ==
--- NOTE | ~2024-03-20 | MM_ITS ---
EXAMINATION: MM SCREENING DIGITAL BREAST TOMOSYNTHESIS, BILATERAL CLINICAL INFORMATION: Screening. Asymptomatic. COMPARISON: Mammography: Comparison is made with available priors TECHNIQUE: Digital breast mammography with tomosynthesis is performed in both the craniocaudal and mediolateral oblique views along with computer-aided detection (CAD). FINDINGS: The breasts are heterogeneously dense, which may obscure small masses (ACR BI-RADS breast composition Category c). There are no significant masses, abnormal calcifications, or other abnormalities. MM/MM tomosynthesis screening BI IMPRESSION: No mammographic evidence of malignancy. ASSESSMENT: BI-RADS BI-RADS 1 - Negative RECOMMENDATION: Routine annual mammography screening. 1 year F/U This examination should not preclude the clinical evaluation of a suspicious palpable abnormality. This patient's information was entered into a reminder system with a target due date for their next mammogram. Electronically signed by: Naomie Payan DO 03/29/2024 10:30 AM EDT
== END 2024-03-20 10:20 | disposition home or self-care (01) ==
LOC: HO.MAMMO 10:19
PROVIDERS: PCP Physician Assistant; Visit Provider Physician Assistant
DX: Z12.31 Encounter for screening mammogram for malignant neoplasm of breast (principal)
CPT/HCPCS: 77063; 77067

== ENCOUNTER 2024-04-07 10:18 | Outpatient (AMB) | payer OTHER, SELFPAY ==
[2024-04-07 10:24] VITALS: BP 112/80; PULSE 84; O2SAT 99; BMI 31.9
--- NOTE | 2024-04-07 10:24 | MHC.PC.OV ---
Vital Signs 04/07/24 10:24 Height 5 ft 6 in Weight 197 lb 6 oz BMI 31.9 BP 112/80 Blood Pressure Location Lt brachial Position Sitting Pulse 84 Pulse Source Pulse Oximeter Pulse Oximetry (%) 99 Oxygen Delivery Method Room Air Intake Visit Reasons: PE Intake Note: Patient is here today for a physical. Mud Analysis Well Logging Captain Required: No Accompanied by: Self / Same As Patient Allergies ibuprofen Allergy (Severe, Verified 04/07/24 10:42) Swelling aspirin [ASPIRIN] Allergy (Unknown, Verified 04/07/24 10:42) SWELLING Medication List - Last Reconciled 04/07/24 by Rome Redmond PA-C cholecalciferol (vitamin D3) 25 mcg PO DAILY ferrous fumarate 325 mg PO DAILY 90 days loratadine 10 mg PO DAILY 30 days olopatadine 0.2% (Pataday Once Daily Relief) 1 drp ophthalmic (eye) DAILY 4 weeks Tobacco use date assessed: 08/02/23 Dental Screening Dental Screen Date: 08/02/23 HPI PE HPI Details Patient is a 48-year-old female here today for a annual physical. Patient has a past medical history significant for GERD, obesity, proteinuria. Concern-> she does report noting very minimal trace bilateral extremity swelling. She does admit to dietary indiscretion has gained weight since last office visit. Will be checking up on her labs including her CBC and iron as she has had a chronic history anemia. .. Anxiety: She has been experiencing more anxious type symptoms since she has suffered trauma over the last year and a half. She is not interested in any mental health medications though is considering calling a mental health therapist and starting up with cognitive behavioral therapy.. .. Heart palpitations: Has gotten echocardiogram and cardiac Holter monitor which were essentially normal. Patient's palpitations thought to be related to her anxiety. . Iron deficiency anemia: Was on iron supplementation previously in her hemoglobin had normalized. She is now off of iron supplementation would like repeat labs to see if her hemoglobin goes down. She does report still having menstruations that are fairly heavy at times. .. Impaired glucose metabolism: Most recent A1c of 5.9. She is not interested in any diabetic medication at this time will like to work on lifestyle modifications to control her blood sugars. PLAN: Will work diligently on lifestyle and dietary modifications Mammogram: Mammogram done 2023 BI-RADS 1 DESK INTERVIEWER: Is up-to-date with Pap smears. Followed by Justice instructional assistant Colon cancer screening: Up-to-date with colonoscopy- done in 2023 normal repeat 10 years Vaccine: Up-to-date with tetanus, up-to-date COVID vaccine, declines flu vaccine PFSH Medical History Family history of colorectal cancer Bunion of left foot Urinary frequency Proteinuria delivery delivered Gallbladder polyp Surgical History Hx of colonoscopy Hx of section Hx of cosmetic surgery History of tubal ligation Family History (Updated 04/07/24 @ 10:46 by Rome Redmond PA-C) Mother Ovarian cancer Afib Father Prostate cancer Maternal Uncle Colon cancer Social History Housing: House Alcohol intake: current Alcohol intake frequency: holidays/special occasions only Patient Tobacco Use Status: Never used Tobacco e-Cigarette/Vaping Use: Never Used Second Hand Smoke Exposure: No service: No Current occupational status: employed 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 1. Little interest or pleasure in doing things: not at all 2. Feeling down, depressed, or hopeless: not at all 3. Trouble falling or staying asleep, or sleeping too much: not at all 4. Feeling tired or having little energy: not at all 5. Poor appetite or overeating: not at all 6. Feeling bad about yourself - or that you are a failure or have let yourself or your family down: not at all 7. Trouble concentrating on things, such as reading the newspaper or watching television: not at all 8. Moving or speaking so slowly that other people could have noticed. Or the opposite - being so fidgety or restless that you have been moving around a lot more than usual: not at all 9. Thoughts that you would be better off or of hurting yourself in some way: not at all Total score: 0 Depression Screening Interpretation: Negative Depression Screening Done: Yes 93928 - PHQ-9 Billing: Yes Source: Developed by Drs. Rocco Velasquez, Isi Rodriguez, Arian Mehta and colleagues, with an educational marsha from [employer]. Thrive Questionnaire Date Thrive assessed: 04/07/24 I am a: Patient What is your living situation today?: I have a steady place to live Within the past 12 months, did the food you bought not last and you didn't have the money to get more?: Never true Within the past 12 months, did you worry whether your food would run out before you got money to buy more?: Never true Do you have trouble paying for medicines?: No Do you have trouble getting transportation to medical appointments?: No Do you have trouble paying your heating and electricity bill?: No Do you have trouble taking care of your child, family member or friend?: No Do you have trouble with day-to-day activities such as bathing, preparing meals, shopping, managing finances, etc.?: No Are you currently unemployed and looking for a job?: No Are you interested in more education?: No Please select the resources that you would like help with: None Currently or been in a relationship where the following occur: No concerns reported THRIVE Score: 0 AUDIT C Alcohol Use Questionnaire (AUDIT-C) 1. How often do you have a drink containing alcohol?: 2-4 times a month 2. How many drinks containing alcohol do you have on a typical day when you are drinking?: 1 or 2 3. How often do you have six or more drinks on one occasion?: Never Total Score: 2 ABDOULAYE-7 AMB Questionnaire ABDOULAYE-7 Date ABDOULAYE - 7 assessed: 04/07/24 Feeling nervous, anxious, or on edge: 0 = Not at all Not being able to stop or control worryin = Not at all Worrying too much about different things: 0 = Not at all Trouble relaxin = Not at all Being so restless that it is hard to sit still: 0 = Not at all Becoming easily annoyed or irritable: 0 = Not at all Feeling afraid as if something awful might happen: 0 = Not at all Total ABDOULAYE-7 score (0-4 normal; 5-9 mild; 10-14 moderate; 15-21 severe): 0 Source: Developed by Drs. Rocco Velasquez, Isi Rodriguez, Arian Mehta and colleagues, with an educational marsha from [employer]. ABDOULAYE-7 Assessment Billing ABDOULAYE-7 Assessment Tool: ABDOULAYE-7 Assessment 30650 Review of Systems Const Denies headache(s) Eyes Denies loss of vision ENT Denies vertigo, Denies dizziness, Denies headache(s) and Denies sore throat Card Denies chest pain, Denies leg edema and Denies lightheadedness Resp Denies cough, Denies hemoptysis and Denies wheezing GI Denies abdominal pain, Denies melena, Denies constipation, Denies diarrhea and Denies vomiting Denies urinary frequency, Denies dysuria and Denies urinary urgency Musc Denies arthralgias, Denies joint swelling, Denies numbness and Denies tingling Neuro Denies Abnormal speech present, Denies behavioral changes, Denies vertigo, Denies dizziness, Denies headache(s), Denies loss of vision, Denies memory loss, Denies numbness and Denies tingling Psych Denies anxiety, Denies behavioral changes, Denies depression, Denies memory loss and Denies panic attacks Aditya/Lymph Denies easy bleeding and Denies easy bruising Aller/Immun Denies wheezing Physical exam (Primary Care) Vital Signs: Last Vital Signs Pulse 84 04/07/24 10:24 BP 112/80 04/07/24 10:24 Pulse Ox 99 04/07/24 10:24 Oxygen Delivery Method Room Air 04/07/24 10:24 BMI result Body Mass Index 31.9 Tobacco/Smoking Status: Tobacco use Status Tobacco use date assessed 08/02/23 04/07/24 10:25 Patient Tobacco Use Status Never used Tobacco 04/07/24 10:25 Tobacco use type 11/20/23 14:44 e-Cigarette/Vaping Use Never Used 04/07/24 10:25 PHQ-9: PHQ-9 Score PHQ-9: Total score 0 04/07/24 14:10 Depression Screening Interpretation: Negative Thrive Assessment: Date of Thrive Assessment Date Thrive assessed 04/07/24 04/07/24 10:25 Currently or been in a relationship where the following occur: No concerns reported Const General: healthy appearing, no acute distress, alert and awake Nutritional Appearance: well nourished Orientation/consciousness: oriented to person, oriented to place and oriented to time HENMT Ears: TM's normal bilaterally General nose exam: Normal nasal mucous membranes and turbinates present Eyes Conjunctivae: conjunctivae normal Sclerae: sclerae normal Pupils: Equal, round and reactive pupils present Neck Neck: Yes no lymphadenopathy and Yes no JVD Thyroid: Thyroid normal Carotids: no bruits Resp Effort & Inspection: normal respiratory effort and not tachypneic Auscultation: no crackles, no rales, no rhonchi and no wheezes Cardio Rate: regular rate Rhythm: regular rhythm Heart sounds: no murmurs and normal S1 and S2 GI Palpation (GI): Soft to palpation, nontender, no hepatomegaly and no splenomegaly Auscultation: normal bowel sounds Skin General skin exam: no rashes or lesions noted and dry skin Neuro General: oriented to person, oriented to place and oriented to time Cranial nerves: Yes Equal, round and reactive pupils present Speech: No Abnormal speech present Gait exam (Neuro): Normal gait present Motor exam (neuro): no tremor noted Extrem Right upper extremity: full ROM Left upper extremity: full ROM Right lower extremity: full ROM; no edema Left lower extremity: full ROM; no edema Psych Mental Status: mental status grossly normal Speech and movement: Normal speech and movement present Affect: normal affect Attitude: cooperative Thought process: Normal thought process present Office Procedures Flu Questionnaire Does the patient have a severe egg allergy?: No Immunizations Fluarix Triv [id number] (PF) 45 mcg (15 mcg x 3)/0.5 mL IM syringe Performing Provider: Rome Redmond PA-C [facility] Documented (not given) by: ASHOK Graf on 04/07/24 10:41 Reason Not Given: Patient Refused Coding Level of Care Code Est Pt Level 4 (66524) Diagnoses Impaired glucose metabolism R73.09 ABDOULAYE (generalized anxiety disorder) F41.1 Iron deficiency anemia, unspecified iron deficiency anemia type D50.9 Iron deficiency anemia type: unspecified iron deficiency Additional Codes ABDOULAYE-7 Assessment Billing - ABDOULAYE-7 Assessment Tool: ABDOULAYE-7 Assessment 88914 ([id number]) PHQ-9 - 21614 - PHQ-9 Billing: Yes ([id number]) Assessment & Plan Assessment & Plan (1) Impaired glucose metabolism: Code(s): R73.09 - Other abnormal glucose Category: Medical Plan: Patient's most recent fasting blood sugar acceptable. A1c is been consistently 0.9. She will continue working on lifestyle dietary modifications to reduce her blood sugars. (2) ABDOULAYE (generalized anxiety disorder): Code(s): F41.1 - Generalized anxiety disorder Category: Medical Plan: Patient reports her anxiety has been elevated over the past 6 months due to personal issues though has been able hemo them on her own and has support through close family and friends. (3) Iron deficiency anemia: Code(s): D50.9 - Iron deficiency anemia, unspecified Category: Medical Qualifiers: Iron deficiency anemia type: unspecified iron deficiency Qualified Code(s): D50.9 - Iron deficiency anemia, unspecified Plan: Patient does have history of iron-deficiency anemia. She is not really consistent with using iron supplement. She does report having having menses which can be a cause of her anemia. Will recheck iron and CBC. Orders: Orders Influenza [id number] Immunization Today Z23 - Encounter for immunization Referrals Ophthalmology Referral H01.111 - Allergic dermatitis of right upper eyelid, H01.112 - Allergic dermatitis of right lower eyelid
== END 2024-04-07 11:09 | disposition home or self-care (01) ==
PROVIDERS: PCP Physician Assistant; Visit Provider Physician Assistant
DX: R73.09 Other abnormal glucose (principal); F41.1 Generalized anxiety disorder; D50.9 Iron deficiency anemia, unspecified; Z23 Encounter for immunization

== ENCOUNTER → 2024-04-07 10:18 | Outpatient (BNVA) | payer OTHER, SELFPAY | PROVIDERS: PCP Physician Assistant; Visit Provider Physician Assistant | DX: R73.09 Other abnormal glucose (principal); F41.1 Generalized anxiety disorder; D50.9 Iron deficiency anemia, unspecified | CPT/HCPCS: 90471; 96127; 99212 ==

== ENCOUNTER 2024-07-18 08:20 | Outpatient (REF) | payer OTHER, SELFPAY ==
--- OUTSIDE RECORDS SUMMARY | 2024-07-18 08:31 | XMS_ITS | Clinical Summary ---
Author Organization [facility] Facility Address [address] [place] [address] Care Team Providers Care Cytometry Technologist Name Role Phone Rome Redmond Primary Care Provider [phone] Allergies Active Allergy Reactions Criticality Noted Date Comments Aspirin 03/28/2022 Medications No known medications Active Problems Problem Noted Date Diagnosed Date Proteinuria 03/28/2022 Proteinuria 03/27/2022 Family History Medical History Relation Comments Cancer Father Diabetes Father Cancer Mother Diabetes Mother Relation Status Comments Father Mother Social History Tobacco Use Types Packs/Day Years Used Date Smoking Tobacco: Former Cigarettes Smokeless Tobacco: Never Tobacco Cessation:Counseling Given: Not Answered Alcohol Use Standard Drinks/Week Comments Never 0 (1 standard drink = 0.6 oz pur e alcohol) Comments Unknown Sex and Gender Information Value Date Recorded Sex Assigned at Not on file Legal Sex Female 4:11 PM EDT Gender Identity Not on file Sexual Orientation Not on file Last Filed Vital Signs Vital Sign Reading Time Taken Comments Blood Pressure 120/80 03/28/2022 3:08 PM EDT Pulse 68 03/28/2022 3:08 PM EDT Temperature - - Respiratory Rate - - Oxygen Saturation 98% 03/28/2022 3:08 PM EDT Inhaled Oxygen Concentration - - Weight 87.5 kg (193 lb) 03/28/2022 3:08 PM EDT Height - - Body Mass Index - - Plan of Treatment Health Maintenance Due Date Last Done Comments Hepatitis B Vaccine (1 of 3 - 19+ 3-dose series) 1996 Influenza Vaccine (#1) 2024 Pneumococcal Vaccine: Pediat rics (0 to 5 Years) and At-Risk Patients (6 to 64 Years) Aged Out No longer eligi ble based on patient's age to complete this topic Insurance [facility] Care Teams Cytometry Technologist Relationship Specialty Start Date End Date Rome Redmond PA [address] [place] [address], [address] [place] [address] PCP - General Physician Protection Analyst 01/02/22
[2024-07-18 09:24] LABS: Hematocrit 30.4 % (37.0-47.0); Hemoglobin 8.9 g/dl (12.0-16.0); Mean Corpuscular HGB Conc 29.3 g/dl (31.0-35.0); Mean Corpuscular Hemoglobin 21.8 pg (27.0-33.0); Mean Corpuscular Volume 74.5 fL (80.0-98.0); Platelet Count 382 X10*3/uL (160-400); Red Blood Count 4.08 X10*6/uL (4.20-5.50); Red Cell Distribution Width 18.7 % (11.0-16.0); White Blood Count 8.4 X10*3/uL (4.8-10.8)
[2024-07-18 09:28] LABS: Estimated Average Glucose 131 mg/dL; Hemoglobin A1C 104.6782 umol/L; Hemoglobin A1c % 6.2 % (<6.0); Total Hemoglobin (HGBA1C) 2349.6764 umol/L
[2024-07-18 10:06] LABS: Alanine Aminotransferase 45 U/L (0-31); Alkaline Phosphatase 72 U/L (39-117); Anion Gap 12 (12-20); Aspartate Amino Transferase 26 U/L (5-31); Bilirubin Total 0.2 mg/dL (0.0-1.0); Blood Urea Nitrogen 10 mg/dL (9-16); Calcium 8.8 mg/dL (8.4-10.2); Carbon Dioxide 23 mmol/L (22-29); Chloride 106 mmol/L (96-108); Estimated Glomerular Filt Rate > 60; Glucose Fasting 120 mg/dL (60-99); Iron 67 mcg/dL (30-160); Percent Iron Saturation 18 % (15-50); Potassium 4.3 mmol/L (3.3-5.1); Sodium 137 mmol/L (135-145); Total Iron Binding Capacity 365 mcg/dL (228-428); Total Protein 7.4 g/dL (6.5-8.0); Unsaturated Iron Binding 298 ug/dL
[2024-07-18 10:13] LABS: Vitamin D 25-OH Total 16.9 ng/mL (>30)
== END 2024-07-18 08:21 | disposition home or self-care (01) ==
LOC: HO.LAB 08:20
PROVIDERS: PCP Physician Assistant; Visit Provider Physician Assistant
DX: D50.9 Iron deficiency anemia, unspecified (principal); R73.09 Other abnormal glucose; E55.9 Vitamin D deficiency, unspecified
CPT/HCPCS: 36415; 80053; 82306; 83036; 83540; 85027

== ENCOUNTER 2024-07-23 10:13 | Outpatient (AMB) | payer OTHER, SELFPAY ==
--- NOTE | 2024-07-23 10:36 | A.OFFPC_ITS ---
Vital Signs 07/23/24 10:38 Height 5 ft 6 in Weight 190 lb 2 oz BMI 30.7 BP 110/66 Blood Pressure Location Lt brachial Position Sitting Pulse 100 Pulse Source Pulse Oximeter Temp 97.3 F Temp Source Temporal Artery Scan Pulse Oximetry (%) 97 Oxygen Delivery Method Room Air Intake Visit Reasons: f/u CBC/ IGM Intake Note: Patient is here to follow up on CBC and IGM. Title 1 Tutor Required: No Paleontological Helper: Not Required per policy Accompanied by: Self / Same As Patient Allergies ibuprofen Allergy (Severe, Verified 07/23/24 10:50) Swelling aspirin [ASPIRIN] Allergy (Unknown, Verified 07/23/24 10:50) SWELLING Medication List - Last Reconciled 07/23/24 by Rome Redmond PA-C cholecalciferol (vitamin D3) 25 mcg PO DAILY ferrous fumarate 325 mg PO DAILY 90 days loratadine 10 mg PO DAILY 30 days olopatadine 0.2% (Pataday Once Daily Relief) 1 drp ophthalmic (eye) DAILY 4 weeks Tobacco use date assessed: 07/23/24 Dental Screening Dental Screen Date: 07/23/24 Did you have a dental visit in the last 12 months?: Yes Did you have a dental problem in the last 6 months where you did not have access to dental care?: No Was dental information given to patient?: Patient has dentist HPI f/u CBC/ IGM HPI Details Patient is a 48-year-old female here today for a follow-up visit. Patient has a past medical history significant for GERD, obesity, proteinuria. .. Anxiety: She has been experiencing more anxious type symptoms since she has suffered trauma over the last year and a half. She is not interested in any mental health medications though is considering calling a mental health therapist and starting up with cognitive behavioral therapy.. . Iron deficiency anemia: Was on iron supplementation previously in her hemoglobin had normalized. Recent labs showing hemoglobin 8.9. She recently restarted iron supplementation. She does report still having menstruations that are fairly heavy at times. PLAN; try for transvaginal ultrasound evaluate for uterine fibroids .. Impaired glucose metabolism: Most recent A1c of 6.2. She is not interested in any diabetic medication at this time will like to work on lifestyle modifications to control her blood sugars. PLAN: Will work diligently on lifestyle and dietary modifications [facility] Medical History Family history of colorectal cancer Bunion of left foot Urinary frequency Proteinuria delivery delivered Gallbladder polyp Surgical History Hx of colonoscopy Hx of section Hx of cosmetic surgery History of tubal ligation Family History Mother Ovarian cancer Afib Father Prostate cancer Maternal Uncle Colon cancer Social History Housing: House Alcohol intake: current Alcohol intake frequency: holidays/special occasions only Patient Tobacco Use Status: Never used Tobacco e-Cigarette/Vaping Use: Never Used Second Hand Smoke Exposure: No service: No Current occupational status: employed 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 1. Little interest or pleasure in doing things: not at all 2. Feeling down, depressed, or hopeless: not at all 3. Trouble falling or staying asleep, or sleeping too much: not at all 4. Feeling tired or having little energy: not at all 5. Poor appetite or overeating: not at all 6. Feeling bad about yourself - or that you are a failure or have let yourself or your family down: not at all 7. Trouble concentrating on things, such as reading the newspaper or watching television: not at all 8. Moving or speaking so slowly that other people could have noticed. Or the opposite - being so fidgety or restless that you have been moving around a lot more than usual: not at all 9. Thoughts that you would be better off or of hurting yourself in some way: not at all Total score: 0 Depression Screening Interpretation: Negative Depression Screening Done: Yes 63984 - PHQ-9 Billing: Yes Source: Developed by Drs. Rocco Velasquez, Isi Rodriguez, Arian Mehta and colleagues, with an educational marsha from [employer]. Thrive Questionnaire Date Thrive assessed: 07/23/24 I am a: Patient What is your living situation today?: I have a steady place to live Within the past 12 months, did the food you bought not last and you didn't have the money to get more?: Never true Within the past 12 months, did you worry whether your food would run out before you got money to buy more?: Never true Do you have trouble paying for medicines?: No Do you have trouble getting transportation to medical appointments?: No Do you have trouble paying your heating and electricity bill?: No Do you have trouble taking care of your child, family member or friend?: No Do you have trouble with day-to-day activities such as bathing, preparing meals, shopping, managing finances, etc.?: No Are you currently unemployed and looking for a job?: No Are you interested in more education?: No Please select the resources that you would like help with: None Currently or been in a relationship where the following occur: No concerns reported THRIVE Score: 0 AUDIT C Alcohol Use Questionnaire (AUDIT-C) 1. How often do you have a drink containing alcohol?: 2-4 times a month 2. How many drinks containing alcohol do you have on a typical day when you are drinking?: 1 or 2 Total Score: 2 ABDOULAYE-7 AMB Questionnaire ABDOULAYE-7 Date ABDOULAYE - 7 assessed: 07/23/24 Feeling nervous, anxious, or on edge: 0 = Not at all Not being able to stop or control worryin = Not at all Worrying too much about different things: 0 = Not at all Trouble relaxin = Not at all Being so restless that it is hard to sit still: 0 = Not at all Becoming easily annoyed or irritable: 0 = Not at all Feeling afraid as if something awful might happen: 0 = Not at all Total ABDOULAYE-7 score (0-4 normal; 5-9 mild; 10-14 moderate; 15-21 severe): 0 Source: Developed by Drs. Rocco Velasquez, Isi Rodriguez, Arian Mehta and colleagues, with an educational marsha from [employer] ABDOULAYE-7 Assessment Billing ABDOULAYE-7 Assessment Tool: ABDOULAYE-7 Assessment 08978 Review of Systems Const Denies headache(s) Eyes Denies loss of vision ENT Denies vertigo, Denies dizziness, Denies headache(s) and Denies sore throat Card Denies chest pain, Denies leg edema and Denies lightheadedness Resp Denies cough, Denies hemoptysis and Denies wheezing GI Denies abdominal pain, Denies melena, Denies constipation, Denies diarrhea and Denies vomiting Denies urinary frequency, Denies dysuria and Denies urinary urgency Musc Denies arthralgias, Denies joint swelling, Denies numbness and Denies tingling Neuro Denies Abnormal speech present, Denies behavioral changes, Denies vertigo, Denies dizziness, Denies headache(s), Denies loss of vision, Denies memory loss, Denies numbness and Denies tingling Psych Denies anxiety, Denies behavioral changes, Denies depression, Denies memory loss and Denies panic attacks Aditya/Lymph Denies easy bleeding and Denies easy bruising Aller/Immun Denies wheezing Physical exam (Primary Care) Vital Signs: Last Vital Signs Temp 97.3 F 07/23/24 10:38 Pulse 100 07/23/24 10:38 BP 110/66 07/23/24 10:38 Pulse Ox 97 07/23/24 10:38 Oxygen Delivery Method Room Air 07/23/24 10:38 BMI result Body Mass Index 30.7 Tobacco/Smoking Status: Tobacco use Status Tobacco use date assessed 07/23/24 07/23/24 10:41 Patient Tobacco Use Status Never used Tobacco 07/23/24 10:41 Tobacco use type 11/20/23 14:44 e-Cigarette/Vaping Use Never Used 07/23/24 10:41 PHQ-9: PHQ-9 Score PHQ-9: Total score 0 07/23/24 10:50 Depression Screening Interpretation: Negative Thrive Assessment: Date of Thrive Assessment Date Thrive assessed 07/23/24 07/23/24 10:41 Currently or been in a relationship where the following occur: No concerns reported Const General: healthy appearing, no acute distress, alert and awake Nutritional Appearance: well nourished Orientation/consciousness: oriented to person, oriented to place and oriented to time HENMT Ears: TM's normal bilaterally General nose exam: Normal nasal mucous membranes and turbinates present Eyes Conjunctivae: conjunctivae normal Sclerae: sclerae normal Pupils: Equal, round and reactive pupils present Neck Neck: Yes no lymphadenopathy and Yes no JVD Thyroid: Thyroid normal Carotids: no bruits Resp Effort & Inspection: normal respiratory effort and not tachypneic Auscultation: no crackles, no rales, no rhonchi and no wheezes Cardio Rate: regular rate Rhythm: regular rhythm Heart sounds: no murmurs and normal S1 and S2 GI Palpation (GI): Soft to palpation, nontender, no hepatomegaly and no splenomegaly Auscultation: normal bowel sounds Skin General skin exam: no rashes or lesions noted and dry skin Neuro General: oriented to person, oriented to place and oriented to time Cranial nerves: Yes Equal, round and reactive pupils present Speech: No Abnormal speech present Gait exam (Neuro): Normal gait present Motor exam (neuro): no tremor noted Extrem Right upper extremity: full ROM Left upper extremity: full ROM Right lower extremity: full ROM; no edema Left lower extremity: full ROM; no edema Psych Mental Status: mental status grossly normal Speech and movement: Normal speech and movement present Affect: normal affect Attitude: cooperative Thought process: Normal thought process present Coding Level of Care Code Est Pt Level 4 (81607) Diagnoses Iron deficiency anemia, unspecified iron deficiency anemia type D50.9 Iron deficiency anemia type: unspecified iron deficiency Vitamin D deficiency E55.9 Menorrhagia with regular cycle N92.0 Menorrhagia type: with regular cycle Additional Codes PHQ-9 - 71608 - PHQ-9 Billing: Yes ([id number]) ABDOULAYE-7 Assessment Billing - ABDOULAYE-7 Assessment Tool: ABDOULAYE-7 Assessment 77763 ([id number]) Assessment & Plan Assessment & Plan (1) Iron deficiency anemia: Code(s): D50.9 - Iron deficiency anemia, unspecified Category: Medical Qualifiers: Iron deficiency anemia type: unspecified iron deficiency Qualified Code(s): D50.9 - Iron deficiency anemia, unspecified Plan: Patient's most recent iron studies normal though hemoglobin in RBCs quite low. She has a restarted iron supplementation and actually feels better.. Interestingly she has noted to have anemia since her cosmetic surgery in [place] in 2019 which she needed a blood transfusion at that point due to complication. Will refer to hematology for further investigation of her microcytic anemia (2) Vitamin D deficiency: Code(s): E55.9 - Vitamin D deficiency, unspecified Category: Medical Plan: Will restart vitamin-D supplementation once weekly dose as most recent vitamin-D at 16. (3) Heavy menstrual bleeding: Code(s): N92.0 - Excessive and frequent menstruation with regular cycle Category: Medical Qualifiers: Menorrhagia type: with regular cycle Qualified Code(s): N92.0 - Excessive and frequent menstruation with regular cycle Plan: Patient does report heavy menstruations at time and unclear if this is related to her anemia. Will recheck her CBC in 1 week to see if hemoglobin is trending in the right direction. Will try for transvaginal ultrasound evaluate for endometrial fibroid. She will be following up her personal injury law specialist in 08/2024 Orders: Orders Complete Blood Count no Diff 07/23/24 D50.9 - Iron deficiency anemia, u nspecified US pelvic and transvaginal 07/23/24 D50.9 - Iron deficiency anemia, unspecified, N92.0 - Excessive and frequent menstruation with regular cycle Referrals Hematology & Oncology Referral D50.9 - Iron deficiency anemia, unspecified Medications: New cholecalciferol (vitamin D3) 1,250 mcg PO QWEEK 12 caps 1RF 12 weeks R79.89 - Other specified abnormal findings of blood chemistry
[2024-07-23 10:38] VITALS: BP 110/66; PULSE 100; TEMP 36.3; O2SAT 97; BMI 30.7
--- OUTSIDE RECORDS SUMMARY | 2024-07-23 12:26 | XMS_ITS | Clinical Summary ---
Author Organization [facility] Facility Address [address] [place] [address] Care Team Providers Care Tram Operator Name Role Phone Rome Redmond Primary Care Provider [phone] Allergies Active Allergy Reactions Criticality Noted Date [...] patient's age to complete this topic Insurance [facility] [address] Care Teams Tram Operator Relationship Specialty Start Date End Date Rome Redmond PA [address] [place] [address], [address] [place] [address] PCP - General Physician Operating Room Scheduler 01/02/22
== END 2024-07-23 11:21 | disposition home or self-care (01) ==
PROVIDERS: PCP Physician Assistant; Visit Provider Physician Assistant
DX: D50.9 Iron deficiency anemia, unspecified (principal); E55.9 Vitamin D deficiency, unspecified; N92.0 Excessive and frequent menstruation with regular cycle

== ENCOUNTER → 2024-07-23 10:13 | Outpatient (BNVA) | payer OTHER, SELFPAY | PROVIDERS: PCP Physician Assistant; Visit Provider Physician Assistant | DX: D50.9 Iron deficiency anemia, unspecified (principal); E55.9 Vitamin D deficiency, unspecified; N92.0 Excessive and frequent menstruation with regular cycle | CPT/HCPCS: 96127; 99212 ==

== ENCOUNTER 2024-08-12 14:03 | Outpatient (AMB) | payer OTHER, SELFPAY ==
[2024-08-12 14:43] VITALS: BP 122/64; PULSE 105; TEMP 36.8; O2SAT 97; BMI 30.7
--- NOTE | 2024-08-12 14:43 | AM.OFFWIN_ITS ---
Intake Vital Signs 08/12/24 14:43 Height 5 ft 6 in Weight 190 lb 6 oz BMI 30.7 BP 122/64 Blood Pressure Location Lt brachial Position Sitting Pulse 105 H Pulse Source Pulse Oximeter Temp 98.2 F Temp Source Oral Pulse Oximetry (%) 97 Oxygen Delivery Method Room Air Intake Visit Reasons: EP-?urine infection Intake Note: Pt presents to the office today for c/o UTI symptoms x3 days. Pt states she has urinary urgency, and burning with urination. Pt states she has been taking OTC Azo. Patient Tobacco Use Status: Never used Tobacco Allergies ibuprofen Allergy (Severe, Verified 08/12/24 14:44) Swelling aspirin [ASPIRIN] Allergy (Unknown, Verified 08/12/24 14:44) SWELLING HPI HPI Comments History of Present Illness Details This is a 48-year-old female with no stated past medical history presenting for evaluation of urinary frequency and dysuria that she has had for the past 3 days. Patient denies having any fevers, chills, flank pain or vaginal discharge. Patient has been taking azo daily without relief of her symptoms. PFS Medical History Family history of colorectal cancer Bunion of left foot Urinary frequency Proteinuria delivery delivered Gallbladder polyp Surgical History Hx of colonoscopy Hx of section Hx of cosmetic surgery History of tubal ligation Family History Mother Ovarian cancer Afib Father Prostate cancer Maternal Uncle Colon cancer Social History Housing: House Alcohol intake: current Alcohol intake frequency: holidays/special occasions only Patient Tobacco Use Status: Never used Tobacco e-Cigarette/Vaping Use: Never Used Second Hand Smoke Exposure: No service: No Current occupational status: employed 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 Current occupational exposures/hazards: No Cognitive needs: No Hearing needs: No Vision needs: No Female Reproductive History Menstrual Age of Menarche: 16 Review of Systems Const All systems reviewed & are unremarkable except as noted in HPI and below Denies chills, Denies fatigue, Denies fever(s) and Denies weakness Eyes Reports no additional complaints ENT Reports no additional complaints Card Reports no additional complaints Resp Reports no additional complaints GI Reports no additional complaints, Denies abdominal pain, Denies nausea and Denies vomiting Reports no additional complaints, Reports dysuria, Denies urinary incontinence, Reports urinary urgency, Denies vaginal discharge and Denies vaginal pruritus Musc Reports no additional complaints Skin/Breast Reports system reviewed and no additional complaints, except as documented Neuro Reports no additional complaints and Denies weakness Psych Reports no additional complaints Endo Reports no additional complaints and Denies fatigue Aller/Immun Reports no additional complaints Physical Exam Vital Signs: Last Vital Signs Temp 98.2 F 08/12/24 14:43 Pulse 105 H 08/12/24 14:43 BP 122/64 08/12/24 14:43 Pulse Ox 97 08/12/24 14:43 Oxygen Delivery Method Room Air 08/12/24 14:43 BMI result Body Mass Index 30.7 Const General: cooperative, healthy appearing, comfortable, no acute distress, well developed, alert, awake and Physically active Nutritional Appearance: average body habitus Orientation/consciousness: patient oriented x3 Limitations: no limitations GI Inspection: Yes normal to inspection and No distended Palpation (GI): Soft to palpation and Tenderness to palpation present (GI) suprapubicly General: Yes Bimanual renal exam normal bilaterally, Yes no CVA tenderness and Yes other (no flank tenderness bilaterally) Back/Spine/Pelvis Back: no CVA tenderness Skin General skin exam: no rashes or lesions noted Neuro General: patient oriented x3 Psych Appearance: grossly normal Mental Status: mental status grossly normal Insight: Good insight present (Psych) Judgement: Good judgement present (Psych) Results AMB Urinalysis, Automated UA Leukoctes 125 Carlyn/uL Last Edit by Nicole Duncan CMA on 08/12/24 14:29 UA Nitrite Positive Last Edit by Nicole Duncan CMA on 08/12/24 14:29 UA Urobilinogen 4 mg/dL Last Edit by Nicole Duncan CMA on 08/12/24 14:29 UA Protein 0 mg/dL Last Edit by Nicole Duncan CMA on 08/12/24 14:29 UA pH 7.0 Last Edit by Nicole Duncan CMA on 08/12/24 14:29 UA Blood 0 Silas/uL Last Edit by Nicole Duncan CMA on 08/12/24 14:29 UA Specific [place] 1.005 Last Edit by Nicole Duncan CMA on 08/12/24 14:29 UA Ketone Negative Last Edit by Nicole Duncan CMA on 08/12/24 14: UA Bilirubin 4 mg/dL Last Edit by Nicole Duncan CMA on 08/12/24 14:29 UA Glucose 100 mg/dL Last Edit by Nicole Duncan CMA on 08/12/24 14: Results Reviewed Results Reviewed: Laboratory Last Values Urine pH (Auto) 7.0 08/12/24 14: Specific [place] (Auto) 1.005 08/12/24 14:26 Urine Protein (Auto) 0 mg/dL 08/12/24 14: Glucose (UA)(Auto) 100 mg/dL 08/12/24 14: Urine Ketones (Auto) Negative 08/12/24 14: Urine Blood (Auto) 0 Silas/uL 08/12/24 14:26 Urine Nitrite (Auto) Positive 08/12/24 14:26 Urine Bilirubin (Auto) 4 mg/dL 08/12/24 14: Urine Urobilinogen (Auto) 4 mg/dL 08/12/24 14:26 Leukocyte Esterase (Auto) 125 Carlyn/uL 08/12/24 14:26 Urinalysis is reviewed. Assessment & Plan Assessment & Plan (1) Dysuria: Comment: The patient's urinalysis is consistent with acute urinary tract infection. Patient will be discharged with antibiotic therapy. Code(s): R30.0 - Dysuria Plan: Keflex q.6 hours times 10 days. Increase clear fluids daily. Orders: Orders AMB Urinalysis Automated Today Z13.9 - Encounter for screening, unspecified Urine Culture Today R39.9 - Unspecified symptoms and signs involving the genitourinary system Medications: New cephalexin 500 mg PO Q6H 28 caps 0RF Coding Level of Care Code Est Pt Level 3 (14591) Diagnoses Dysuria R30.0 Time Spent (min) 20
--- OUTSIDE RECORDS SUMMARY | 2024-08-12 16:48 | XMS_ITS | Clinical Summary ---
Author Organization [facility] Facility Address [address] [place] [address] Care Team Providers Care Traveling Engineer Name Role Phone Rome Redmond Primary Care Provider [phone] Allergies Active Allergy Reactions Criticality Noted Date [...] patient's age to complete this topic Insurance [facility] [place] [facility] [place] [address] Care Teams Traveling Engineer Relationship Specialty Start Date End Date Rome Redmond PA [address] [place] [address], [address] [place] [address] PCP - General Physician Flamer Sealer 01/02/22
== END 2024-08-12 15:38 | disposition home or self-care (01) ==
PROVIDERS: PCP Physician Assistant; Visit Provider Physician Assistant
DX: Z13.9 Encounter for screening, unspecified (principal); R30.0 Dysuria

== ENCOUNTER 2024-08-12 14:03 | Outpatient (REF) | payer OTHER, SELFPAY ==
--- OUTSIDE RECORDS SUMMARY | 2024-08-12 18:09 | XMS_ITS | Clinical Summary ---
Author Organization [facility] Facility Address [address] [place] [address] Care Team Providers Care Life Insurance Specialist Name Role Phone Rome Redmond Primary Care Provider [phone] Allergies Active Allergy Reactions Criticality Noted Date [...] patient's age to complete this topic Insurance [facility] Care Teams Life Insurance Specialist Relationship Specialty Start Date End Date Rome Redmond PA [address] [place] [address], [address] [place] [address] PCP - General Physician Labor Relations Teacher 01/02/22
== END 2024-08-12 14:04 | disposition home or self-care (01) ==
LOC: HO.LAB 14:03
PROVIDERS: PCP Physician Assistant; Visit Provider Physician Assistant
DX: R30.0 Dysuria (principal); R39.9 Unspecified symptoms and signs involving the genitourinary system
CPT/HCPCS: 81003; 87086; 99212

== ENCOUNTER 2024-08-20 14:52 | Outpatient (AMB) | payer OTHER, SELFPAY ==
[2024-08-20 15:01] VITALS: BMI 30.7
--- NOTE | 2024-08-20 15:01 | A.OFFVIS_ITS ---
Vital Signs 08/20/24 15:01 Height 5 ft 6 in Weight 190 lb BMI 30.7 Intake Visit Reasons: vaginal itch Porter Head Required: No Porter Head Services: Porter Head Present Information Interpreted: clinical only Wire Stitcher: Wire Stitcher Present Allergies ibuprofen Allergy (Severe, Verified 08/20/24 15:03) Swelling aspirin [ASPIRIN] Allergy (Unknown, Verified 08/20/24 15:03) SWELLING Medication List - Last Reconciled 08/20/24 by Kandy Willett CNM cephalexin 500 mg PO Q6H cholecalciferol (vitamin D3) 1,250 mcg PO QWEEK 12 weeks ferrous fumarate 325 mg PO DAILY 90 days loratadine 10 mg PO DAILY 30 days olopatadine 0.2% (Pataday Once Daily Relief) 1 drp ophthalmic (eye) DAILY 4 weeks Is last menstrual period known: Yes Last menstrual period: 07/26/24 HPI HPI vaginal itch: Details: Patient is here for vaginal itch but she has complicated issues that are contributing to her concerns she also has been getting a pain in her bladder and she constantly feels like she has to urinate frequently and that she never fully completely empties she has a history of C-sections and history of abdominal cosmetic surgery. She has been seen by Urology but she to miss her June appointment so she needs to reschedule that. She has a history of urinary retention and incomplete emptying of the bladder but says that the test last year showed that she completely emptied but she still felt like she needed to void she is going to wait and see what the tests show this year. In the meantime she had urinary tract infection symptoms last week and went to urgent care in [place] and was treated for urinary tract infection and a urine was sent for culture which showed that she had been given in antibiotic that she was in fact sensitive to for her E coli. She is finishing her 7 day treatment for the UTI with cephalexin today. She still feels like she has urinary frequency like the symptoms are not completely better she told the medical oncologist this but a full history of her being treated for the UTI had not been appreciated so the urine got sent for culture before I was aware of it. She also said she has an ultrasound scheduled for next week as well to see if she has fibroids because she has become very any she was prescribed iron twice a day but did not like taking it but she now that her last H&H was down to 8.9 she has started taking her iron twice a day. Her periods last her about 7 days and she has been getting more clots with them. She said she has had her colon fully screened as well. We discussed during this visit many issues including the UTI the urinary retention the mechanism for a sensation of bacteria into the urethra especially during intercourse and the anatomical contributing factors as well as issues around yeast infection in antibiotics PFSH Medical History (Updated 08/20/24 @ 16:24 by Kandy Willett CNM) Family history of colorectal cancer Bunion of left foot Urinary frequency Proteinuria delivery delivered Gallbladder polyp Surgical History (Updated 08/20/24 @ 16:24 by Kandy Willett CNM) Hx of colonoscopy Hx of section Hx of cosmetic surgery History of tubal ligation Family History Mother Ovarian cancer Afib Father Prostate cancer Maternal Uncle Colon cancer Social History Housing: House Alcohol intake: current Alcohol intake frequency: holidays/special occasions only Patient Tobacco Use Status: Never used Tobacco e-Cigarette/Vaping Use: Never Used Second Hand Smoke Exposure: No service: No Current occupational status: employed 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 Current occupational exposures/hazards: No Cognitive needs: No Hearing needs: No Vision needs: No Female Reproductive History Menstrual Age of Menarche: 16 Duration of menses: 3-5 days Date of last menstrual period: 07/26/24 control method: permanent sterilization Total pregnancies: 2 Full term: 2 Physical Exam Vital Signs: BMI result Body Mass Index 30.7 Other: No external lesions vagina and vulva labia minora pink consistent with yeast infection her particular anatomy allows for close approximation of labia minora unless air to the vulva in addition her urethra is angled above the vaginal opening in such a way that it would be difficult to avoid during intercourse. It was difficult to visualize for cervix today because we used to Carla speculum discharge was consistent with yeast Difficult to palpate cervix and uterus as they are well supported upwards by virtue of the scar tissue the move various surgeries. External Female Exam: normal external appearance Speculum Exam - Vagina: normal appearance of the vagina and normal vaginal discharge Speculum Exam - Cervix: normal appearance of the cervix Bimanual exam- vagina & uterus: normal bimanual exam, uterine size normal, consistency normal, uterine mobility normal, uterine shape normal and non-tender Bimanual Exam- Adnexa, other: normal adnexae, no masses and No adnexal tenderness Results Reviewed Results Reviewed: Name: Mariana Bliss Age/Sex: 47/F Attending: Kandy Willett CNM : 1975 Submitted by: Kandy Willett CNM Copies to: Rome Redmond PA-C MR #: [id number] Status: DEP REF Collected: 08/27/23 Location: [facility] Received: 08/28/23 Interpretation Satisfactory for evaluation. Negative for intraepithelial lesion or malignancy. HPV mRNA E6/E7: NOT DETECTED This assay detects E6/E7 viral messenger RNA (mRNA) from 14 high-risk HPV types (16, 18, 31, 33, 35, 39, 45, 51, 52, 56, 58, 59, 66, 68) HPV testing performed by [facility], [place], [place]. See reference laboratory portion of the EMR for entire report. Clinical Information LMP: 07/29/2023 Previous PAP test: 03/17/2021, WNL Material Received ThinPrep-Cervical Copies To Rome Redmond PA-C [address] [place] [address] Dr. Mcf[address]ane [address] [address] Kandy Willett CNM [address] [place] [address] Dr. [address] [address] Electronically Signed By: MONICA Gibbs (ASCP) 09/14/23 0922 The Pap Test is a screening procedure with the inherent possibility of both false negative and false positive results. Results should be interpreted in the context of historic and current clinical findings. Reliability of the Pap Test is enhanced by performing the test on a regular repetitive basis. Patient: Mariana Bliss Age/Sex: 47/F MR#: [id number] Page 1 of Name: Mariana Bliss Age/Sex: 48/F : 1975 Unit#: [id number] Attend Dr: Deya Lopez PA-C Re08/12/24 Status: DEP [facility]F [facility] Dis[facility]: Specimen: [id number] Collected: 08/12/24140 Status: COMP Req#: [id number] Received: 08/12/24162 Source: [facility] Sp Desc: Clean Cat Subm Dr: Deya Lopez PA-C Ordered: Urine Culture Procedure Result Verified Urine Culture Final 08/16/24 Organism 1 Escherichia coli Quant 50,000 to 100,000 cfu/mL E coli M.I.C. RX --------- --- Ampicillin 4 S Cefazolin (Urine) <=1 S Cefepime <=0.12 S Ceftriaxone <=0.25 S Ciprofloxacin <=0.06 S Gentamicin <=1 S Nitrofurantoin <=16 S Trimethoprim/Sulfamethoxazole <=20 S RUN: 08/20/24 1469 PAGE 1 [facility] [address] [place] [id number] Transportation Aid: Simone Aleman M.D. Specimen Inquiry Name: Mariana Bliss Age/Sex: 48/F : 1975 Unit#: [id number] Attend Dr: Rome Redmond PA-C Re07/18/24 Status: DEP REF [facility] Disch: SPEC : [id number] CECI: 07/18/24 STATUS: COMP REQ : [id number] RECD: 07/18/[address]: Rome Redmond PA-C COMP: 07/18/24 ENTERED: 07/18/[address] [facility] [address]: ORDERED: CBC No Diff Test Result Flag Reference WBC 8.4 4.8-10.8 X10*3/uL RBC 4.08 L 4.20-5.50 X10*6/uL HGB 8.9 L 12.0-16.0 g/dl HCT 30.4 L 37.0-47.0 % MCV 74.5 L 80.0-98.0 fL MCH 21.8 L 27.0-33.0 pg MCHC 29.3 L 31.0-35.0 g/dl RDW 18.7 H 11.0-16.0 % PLT 382 # 160-400 X10*3/uL MPV 10.0 9.4-12.3 fL NRBC Pct Auto 0.0 0.0-0.2 /100WBC NRBC Abs Auto 0.000 0.0-0.012 X10*3/uL END OF REPORT END OF REPORT Assessment & Plan Assessment & Plan (1) UTI (urinary tract infection): Comment: 08/12/2024 at urgent care and given cephalexin, urine culture came back showing E coli sensitive to all patient is finishing medication 08/20/2024 being seen for vaginal itching/yeast and full discussion urinary issues as well as of the menses and anemia etc./(urine culture was sent to lab before patient disclosed that she had been on antibiotics for UTI.) Code(s): N39.0 - Urinary tract infection, site not specified Category: Medical (2) Vaginal burning: Code(s): N94.9 - Unspecified condition associated with female genital organs and menstrual cycle Category: Medical (3) Urinary frequency: Code(s): R35.0 - Frequency of micturition Category: Medical (4) H/O urinary retention: Code(s): Z87.898 - Personal history of other specified conditions Category: Medical (5) Urinary frequency: Code(s): R35.0 - Frequency of micturition Category: Medical (6) Urinary retention with incomplete bladder emptying: Comment: Patient states the recent testing showed 0 residual she is continuing to pay attention to her symptoms. Code(s): R33.9 - Retention of urine, unspecified Category: Medical (7) Yeast infection of the vagina: Code(s): B37.31 - Acute candidiasis of vulva and vagina Category: Medical (8) Hx of section: Code(s): Z98.891 - History of uterine scar from previous surgery Category: Surgical (9) Heavy menstrual bleeding: Code(s): N92.0 - Excessive and frequent menstruation with regular cycle Category: Medical Qualifiers: Menorrhagia type: with regular cycle Qualified Code(s): N92.0 - Excessive and frequent menstruation with regular cycle (10) Screen for sexually transmitted diseases: Code(s): Z11.3 - Encounter for screening for infections with a predominantly sexual mode of transmission Category: Medical (11) Hx of cosmetic surgery: Code(s): Z98.890 - Other specified postprocedural states Category: Surgical Plan Patient is here for vaginal itch but she has complicated issues that are contributing to her concerns she also has been getting a pain in her bladder and she constantly feels like she has to urinate frequently and that she never fully completely empties she has a history of C-sections and history of abdominal cosmetic surgery. She has been seen by Urology but she to miss her June appointment so she needs to reschedule that. She has a history of urinary retention and incomplete emptying of the bladder but says that the test last year showed that she completely emptied but she still felt like she needed to void she is going to wait and see what the tests show this year. In the meantime she had urinary tract infection symptoms last week and went to urgent care in [place] and was treated for urinary tract infection and a urine was sent for culture which showed that she had been given in antibiotic that she was in fact sensitive to for her E coli. She is finishing her 7 day treatment for the UTI with cephalexin today. She still feels like she has urinary frequency like the symptoms are not completely better she told the medical oncologist this but a full history of her being treated for the UTI had not been appreciated so the urine got sent for culture before I was aware of it. She also said she has an ultrasound scheduled for next week as well to see if she has fibroids because she has become very any she was prescribed iron twice a day but did not like taking it but she now that her last H&H was down to 8.9 she has started taking her iron twice a day. Her periods last her about 7 days and she has been getting more clots with them. She said she has had her colon fully screened as well. We discussed during this visit many issues including the UTI the urinary retention the mechanism for a sensation of bacteria into the urethra especially during intercourse and the anatomical contributing factors as well as issues around yeast infection in antibiotics So today urine culture has been sent.(knowledge the patient was on antibiotics was not obtained until after it or already gone) Discussed frequent voiding to help with full emptying of the bladder she said she would years with holding her urine and that may have contributed to it Discussed her heavy menses and that the definitely could contribute to her anemia. She has an ultrasound ordered by her primary for next week and an appointment with me for next week and then she is going to [place] in the middle of August. We discussed the timing of all her many appointments and suggested that she reschedule the appointment with me for her annual exam until after her trip from [place] so that we can review the results of the ultrasound. I did however raised the subject the Mirena IU S to help with her heavy long menses as that maybe the best solution to deal with the anemia. For the yeast infection I am offering her both Diflucan to take today and repeat in 3 days if she needs to, and Monistat cream to use I did show her anatomically how her anatomy contributes to prevention of air at her vulva and can contribute to yeast infections. I will give her refills on both as well. Orders: Orders CT NG by PCR Today N89.8 - Other specified noninflammatory disorders of vagina, Z20.2 - Contact with and (suspected) exposure to infections with a predomi nantly sexual mode of transmission Bacterial Vaginosis Panel Today N89.8 - Other specified noninflammatory disorders of vagina Urine Culture Today N94.9 - Unspecified condition associated with female genital organs and menstrual cycle Medications: New fluconazole may repeat second dose 72 hrs after first dose if symptoms persist 150 mg PO Q3D 2 doses 2 tabs 2RF miconazole nitrate 2% (Miconazole-7) 1 appful vaginal BEDTIME 7 days 45 grams 2RF Coding Level of Care Code Est Pt Level 3 (68638) Diagnoses UTI (urinary tract infection) N39.0 Vaginal burning N94.9 Urinary frequency R35.0 H/O urinary retention Z87.898 Urinary retention with incomplete bladder emptying R33.9 Yeast infection of the vagina B37.31 Hx of section Z98.891 Menorrhagia with regular cycle N92.0 Menorrhagia type: with regular cycle Screen for sexually transmitted diseases Z11.3 Hx of cosmetic surgery Z98.890 Time Spent (min) 40 Comment 40 minutes spent discussing all of her major issues
--- OUTSIDE RECORDS SUMMARY | 2024-08-20 17:49 | XMS_ITS | Clinical Summary ---
Author Organization [facility] Facility Address [address] [place] [address] Care Team Providers Care Fire Medic Name Role Phone Rome Redmond Primary Care Provider [phone] Allergies Active Allergy Reactions Criticality Noted Date [...] patient's age to complete this topic Insurance [facility] Care Teams Fire Medic Relationship Specialty Start Date End Date Rome Redmond PA [address] [place] [address], [address] [place] [address] PCP - General Physician Managed Care Provider 01/02/22
== END 2024-08-20 16:21 | disposition home or self-care (01) ==
LOC: HO.HWSM 14:53
PROVIDERS: PCP Physician Assistant; Visit Provider Advanced Practice Midwife
DX: N39.0 Urinary tract infection, site not specified (principal); N94.9 Unspecified condition associated with female genital organs and menstrual cycle; R35.0 Frequency of micturition; Z87.898 Personal history of other specified conditions; R33.9 Retention of urine, unspecified; B37.31 Acute candidiasis of vulva and vagina; Z98.891 History of uterine scar from previous surgery; N92.0 Excessive and frequent menstruation with regular cycle; Z11.3 Encounter for screening for infections with a predominantly sexual mode of transmission; Z98.890 Other specified postprocedural states
CPT/HCPCS: 99213

== ENCOUNTER 2024-08-20 14:52 | Outpatient (REF) | payer OTHER, SELFPAY | END 2024-08-20 14:53 | disposition home or self-care (01) | LOC: HO.LAB 14:52 | PROVIDERS: PCP Physician Assistant; Visit Provider Advanced Practice Midwife | DX: N39.0 Urinary tract infection, site not specified (principal); N94.9 Unspecified condition associated with female genital organs and menstrual cycle; R35.0 Frequency of micturition; Z87.898 Personal history of other specified conditions; R33.9 Retention of urine, unspecified; B37.31 Acute candidiasis of vulva and vagina; Z98.891 History of uterine scar from previous surgery; N92.0 Excessive and frequent menstruation with regular cycle; Z11.3 Encounter for screening for infections with a predominantly sexual mode of transmission; Z98.890 Other specified postprocedural states | CPT/HCPCS: 99212 ==

== ENCOUNTER 2024-08-20 15:44 | Outpatient (REF) | payer OTHER, SELFPAY ==
[2024-08-20 21:31] LABS: Bacterial Vaginosis PCR NEGATIVE (Negative); Candida Group PCR DETECTED (Not Detect); Candida glab krusei PCR NOT DETECTED (Not Detect); Trichomonas vaginalis PCR NOT DETECTED (Not Detect)
[2024-08-20 21:48] LABS: CT PCR DETECTED (Not Detect.); NG PCR NOT DETECTED (Not Detect.)
== END 2024-08-20 15:45 | disposition home or self-care (01) ==
LOC: HO.LNP 15:44
PROVIDERS: Visit Provider Advanced Practice Midwife
DX: N89.8 Other specified noninflammatory disorders of vagina (principal); Z20.2 Contact with and (suspected) exposure to infections with a predominantly sexual mode of transmission; N94.9 Unspecified condition associated with female genital organs and menstrual cycle
CPT/HCPCS: 81515; 87086; 87491; 87591

== ENCOUNTER 2024-08-21 13:34 | Outpatient (REF) | payer OTHER, SELFPAY ==
[2024-08-22 08:02] LABS: Syphilis Screen Nonreactive (Nonreactive)
[2024-08-22 08:13] LABS: HBsAGNum1 0.31 S/CO (0.00-0.99); HIV AB/AG Nonreactive (Nonreactive); HIV Num 1 0.07 S/CO (0.00-0.99); Hepatitis B Surface Antigen Negative (Negative); ~HepC Num1 0.18 S/CO (0.00-0.79); ~Hepatitis C Antibody Nonreactive (Nonreactive)
== END 2024-08-21 13:35 | disposition home or self-care (01) ==
LOC: HO.LAB 13:34
PROVIDERS: Absent Provider Obstetrics & Gynecology; PCP Physician Assistant; Visit Provider Physician Assistant
DX: Z11.3 Encounter for screening for infections with a predominantly sexual mode of transmission (principal)
CPT/HCPCS: 36415; 86780; 86803; 87340; 87389

== ENCOUNTER 2024-09-23 12:50 | Outpatient (REF) | payer OTHER, SELFPAY ==
--- NOTE | ~2024-09-23 | US_ITS ---
CLINICAL HISTORY: N92.0 - Excessive and frequent menstruation with regular cycle US pelvis transvaginal Comparison: None Findings: Uterus measures 10.4 x 7.1 x 9.6 cm. At least 5 mostly submucosal fibroids. The largest fibroid (which is also submucosal) measures up to 3.5 x 3.2 x3.4 cm. No endometrial lesion, 13 mm thickness. Right ovary 4.1 x 2.3 x 3.2 cm. 19 mm right ovarian corpus luteum cyst. Left ovary not seen and therefore could not be evaluated. No adnexal lesion on the left side. IMPRESSION: Predominantly submucosal uterine fibroids. This document has been electronically signed by: Louisa Harvey MD on 09/25/2024 10:24:46
--- OUTSIDE RECORDS SUMMARY | 2024-09-23 14:42 | XMS_ITS | Clinical Summary ---
Author Organization [facility] Facility Address [address] [place] [address] Care Team Providers Care Overlay Operator Name Role Phone Rome Redmond Primary Care Provider [phone] Allergies Active Allergy Reactions Criticality Noted Date [...] - 19+ 3-dose series) 1996 Influenza Vaccine (Season Ended) 2025 Pneumococcal Vaccine: Peds ( 0 to 5 Years) and At-Risk Patients (6 to 49 Years) Aged Out No longer eligible b ased on patient's age to complete this topic Insurance [facility] Care Teams Overlay Operator Relationship Specialty Start Date End Date Rome Redmond PA [address] [place] [address], [address] [place] [address] PCP - General Physician Staking Technician 01/02/22
== END 2024-09-23 12:51 | disposition home or self-care (01) ==
LOC: HO.HMGCX 12:50
PROVIDERS: PCP Physician Assistant; Visit Provider Physician Assistant
DX: N92.0 Excessive and frequent menstruation with regular cycle (principal); D50.9 Iron deficiency anemia, unspecified
CPT/HCPCS: 76830; 76856

== ENCOUNTER → 2024-09-23 12:53 | Outpatient (BNV) | payer OTHER, SELFPAY | PROVIDERS: PCP Physician Assistant; Visit Provider Radiology Diagnostic Radiology | DX: N92.0 Excessive and frequent menstruation with regular cycle (principal) | CPT/HCPCS: 76830; 76856 ==

== ENCOUNTER 2024-10-01 11:44 | Outpatient (AMB) | payer OTHER, SELFPAY ==
[2024-10-01 11:52] VITALS: BP 114/80; PULSE 94; TEMP 36.2; O2SAT 99; BMI 30.6
--- NOTE | 2024-10-01 11:52 | A.OFFPC_ITS ---
Vital Signs 10/01/24 11:52 Height 5 ft 6 in Weight 189 lb 8 oz BMI 30.6 BP 114/80 Blood Pressure Location Lt brachial Position Sitting Pulse 94 Pulse Source Pulse Oximeter Temp 97.1 F Temp Source Temporal Artery Scan Pulse Oximetry (%) 99 Oxygen Delivery Method Room Air Intake Visit Reasons: 3 month f/u Safety Clothing And Equipment Developer Required: No Accompanied by: Self / Same As Patient Allergies ibuprofen Allergy (Severe, Verified 10/01/24 11:59) Swelling aspirin [ASPIRIN] Allergy (Unknown, Verified 10/01/24 11:59) SWELLING Medication List - Last Reconciled 10/01/24 by Rome Redmond PA-C ascorbic acid (vitamin C) (Vitamin C) 500 mg PO DAILY 90 days cephalexin 500 mg PO Q6H cholecalciferol (vitamin D3) 1,250 mcg PO QWEEK 12 weeks doxycycline hyclate 100 mg PO BID 7 days ferrous fumarate 325 mg PO BID fluconazole 150 mg PO Q3D 2 doses loratadine 10 mg PO DAILY 30 days miconazole nitrate 2% (Miconazole-7) 1 appful vaginal BEDTIME 7 days olopatadine 0.2% (Pataday Once Daily Relief) 1 drp ophthalmic (eye) DAILY 4 weeks Tobacco use date assessed: 07/23/24 Dental Screening Dental Screen Date: 07/23/24 HPI 3 month f/u HPI Details Patient is a 49-year-old female here today for a follow-up visit. Patient has a past medical history significant for GERD, obesity, proteinuria. . Iron deficiency anemia: Was on iron supplementation previously in her hemoglobin had normalized. She has been taking 2 tablets of her iron supplementation. Of note uterine ultrasound showed multiple fibroids. .. Impaired glucose metabolism: Today's A1c at 5.6 from 6.2. She will start working on low carbohydrate diet and being more physically active to reduce her weight. Of note does have slight fatty liver disease .. Laboratory Tests 08/02/23 01/03/24 07/18/24 11:03 14:00 08:35 RBC 4.08 L Hgb 11.4 L 10.6 L 8.9 L Hct 33.9 L 30.4 L MCH 21.8 L Fasting Glucose 93 120 H Hemoglobin A1c % 6.2 H Vitamin B12 25-OH Vitamin D To anish 16.9 L Folate 09/24/24 13:15 RBC 4.66 Hgb 11.8 L D Hct MCH 25.3 L Fasting Glucose Hemoglobin A1c % Vitamin B12 440 25-OH Vitamin D To anish Folate 9.6 PFSH Medical History (Updated 10/01/24 @ 12:20 by Rome Redmond PA-C) Family history of colorectal cancer Bunion of left foot Urinary frequency Proteinuria delivery delivered Gallbladder polyp Surgical History Hx of colonoscopy Hx of section Hx of cosmetic surgery History of tubal ligation Family History Mother Ovarian cancer Afib Father Prostate cancer Maternal Uncle Colon cancer Social History Household Members: Family Housing: House Alcohol intake: current Alcohol intake frequency: holidays/special occasions only Patient Tobacco Use Status: Never used Tobacco e-Cigarette/Vaping Use: Never Used Second Hand Smoke Exposure: No service: No Current occupational status: employed 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 1. Little interest or pleasure in doing things: not at all 2. Feeling down, depressed, or hopeless: not at all 3. Trouble falling or staying asleep, or sleeping too much: not at all 4. Feeling tired or having little energy: not at all 5. Poor appetite or overeating: not at all 6. Feeling bad about yourself - or that you are a failure or have let yourself or your family down: not at all 7. Trouble concentrating on things, such as reading the newspaper or watching television: not at all 8. Moving or speaking so slowly that other people could have noticed. Or the opposite - being so fidgety or restless that you have been moving around a lot more than usual: not at all 9. Thoughts that you would be better off or of hurting yourself in some way: not at all Total score: 0 Depression Screening Interpretation: Negative Depression Screening Done: Yes 06519 - PHQ-9 Billing: Yes Source: Developed by Drs. Rocco Velasquez, Arian Boggs and colleagues, with an educational marsha from [employer]. Thrive Questionnaire Date Thrive assessed: 10/01/24 I am a: Patient What is your living situation today?: I have a steady place to live Within the past 12 months, did the food you bought not last and you didn't have the money to get more?: Never true Within the past 12 months, did you worry whether your food would run out before you got money to buy more?: Never true Do you have trouble paying for medicines?: No Do you have trouble getting transportation to medical appointments?: No Do you have trouble paying your heating and electricity bill?: No Do you have trouble taking care of your child, family member or friend?: No Do you have trouble with day-to-day activities such as bathing, preparing meals, shopping, managing finances, etc.?: No Are you currently unemployed and looking for a job?: No Are you interested in more education?: No Please select the resources that you would like help with: None Currently or been in a relationship where the following occur: No concerns reported THRIVE Score: 0 AUDIT C Alcohol Use Questionnaire (AUDIT-C) 1. How often do you have a drink containing alcohol?: Monthly or less 2. How many drinks containing alcohol do you have on a typical day when you are drinking?: 3 or 4 3. How often do you have six or more drinks on one occasion?: Never Total Score: 2 ABDOULAYE-7 AMB Questionnaire ABDOULAYE-7 Date ABDOULAYE - 7 assessed: 07/23/24 Feeling nervous, anxious, or on edge: 0 = Not at all Not being able to stop or control worryin = Not at all Worrying too much about different things: 0 = Not at all Trouble relaxin = Not at all Being so restless that it is hard to sit still: 0 = Not at all Becoming easily annoyed or irritable: 0 = Not at all Feeling afraid as if something awful might happen: 0 = Not at all Total ABDOULAYE-7 score (0-4 normal; 5-9 mild; 10-14 moderate; 15-21 severe): 0 Source: Developed by Isi Gunn. Michael, Arian Mehta and colleagues, with an educational marsha from [employer]. ABDOULAYE-7 Assessment Billing ABDOULAYE-7 Assessment Tool: ABDOULAYE-7 Assessment 79937 Review of Systems Const Denies headache(s) Eyes Denies loss of vision ENT Denies vertigo, Denies dizziness, Denies headache(s) and Denies sore throat Card Denies chest pain, Denies leg edema and Denies lightheadedness Resp Denies cough, Denies hemoptysis and Denies wheezing GI Denies abdominal pain, Denies melena, Denies constipation, Denies diarrhea and Denies vomiting Denies urinary frequency, Denies dysuria and Denies urinary urgency Musc Denies arthralgias, Denies joint swelling, Denies numbness and Denies tingling Neuro Denies Abnormal speech present, Denies behavioral changes, Denies vertigo, Denies dizziness, Denies headache(s), Denies loss of vision, Denies memory loss, Denies numbness and Denies tingling Psych Denies anxiety, Denies behavioral changes, Denies depression, Denies memory loss and Denies panic attacks Aditya/Lymph Denies easy bleeding and Denies easy bruising Aller/Immun Denies wheezing Physical exam (Primary Care) Vital Signs: Last Vital Signs Temp 97.1 F 10/01/24 11:52 Pulse 94 10/01/24 11:52 BP 114/80 10/01/24 11:52 Pulse Ox 99 10/01/24 11:52 Oxygen Delivery Method Room Air 10/01/24 11:52 BMI result Body Mass Index 30.6 Tobacco/Smoking Status: Tobacco use Status Tobacco use date assessed 07/23/24 10/01/24 11:53 Patient Tobacco Use Status Never used Tobacco 10/01/24 11:53 Tobacco use type 11/20/23 14:44 e-Cigarette/Vaping Use Never Used 10/01/24 11:53 PHQ-9: PHQ-9 Score PHQ-9: Total score 0 10/01/24 12:00 Depression Screening Interpretation: Negative Thrive Assessment: Date of Thrive Assessment Date Thrive assessed 10/01/24 10/01/24 11:56 Currently or been in a relationship where the following occur: No concerns reported Const General: healthy appearing, no acute distress, alert and awake Nutritional Appearance: well nourished Orientation/consciousness: oriented to person, oriented to place and oriented to time HENMT Ears: TM's normal bilaterally General nose exam: Normal nasal mucous membranes and turbinates present Eyes Conjunctivae: conjunctivae normal Sclerae: sclerae normal Pupils: Equal, round and reactive pupils present Neck Neck: Yes no lymphadenopathy and Yes no JVD Thyroid: Thyroid normal Carotids: no bruits Resp Effort & Inspection: normal respiratory effort and not tachypneic Auscultation: no crackles, no rales, no rhonchi and no wheezes Cardio Rate: regular rate Rhythm: regular rhythm Heart sounds: no murmurs and normal S1 and S2 GI Palpation (GI): Soft to palpation, nontender, no hepatomegaly and no splenomegaly Auscultation: normal bowel sounds Skin General skin exam: no rashes or lesions noted and dry skin Neuro General: oriented to person, oriented to place and oriented to time Cranial nerves: Yes Equal, round and reactive pupils present Speech: No Abnormal speech present Gait exam (Neuro): Normal gait present Motor exam (neuro): no tremor noted Extrem Right upper extremity: full ROM Left upper extremity: full ROM Right lower extremity: full ROM; no edema Left lower extremity: full ROM; no edema Psych Mental Status: mental status grossly normal Speech and movement: Normal speech and movement present Affect: normal affect Attitude: cooperative Thought process: Normal thought process present Coding Level of Care Code Est Pt Level 4 (25033) Diagnoses Iron deficiency anemia, unspecified iron deficiency anemia type D50.9 Iron deficiency anemia type: unspecified iron deficiency Impaired glucose metabolism R73.09 RAM (nonalcoholic steatohepatitis) K75.81 Additional Codes ABDOULAYE-7 Assessment Billing - ABDOULAYE-7 Assessment Tool: ABDOULAYE-7 Assessment 71028 ([id number]) PHQ-9 - 07991 - PHQ-9 Billing: Yes ([id number]) Assessment & Plan Assessment & Plan (1) Iron deficiency anemia: Code(s): D50.9 - Iron deficiency anemia, unspecified Category: Medical Qualifiers: Iron deficiency anemia type: unspecified iron deficiency Qualified Code(s): D50.9 - Iron deficiency anemia, unspecified Plan: Patient's iron studies and CBC appeared to be normalizing with higher dose of iron. Has followed up with Hematology here in [place]. (2) Impaired glucose metabolism: Code(s): R73.09 - Other abnormal glucose Category: Medical Plan: Today's A1c much improved. Most recent random blood sugar at 175. It is likely that due to her hemoglobin being low her A1c was disproportionately off. She also does have fatty liver noted on ultrasound in 2021. She will continue working on low carbohydrate diet and being more physically active to reduce weight (3) RAM (nonalcoholic steatohepatitis): Code(s): K75.81 - Nonalcoholic steatohepatitis (RAM) Category: Medical Plan: Recent ALT remains slightly elevated. She will continue working on lifestyle and dietary modifications Orders: Orders AMB Hemoglobin A1c Today Z13.1 - Encounter for screening for diabetes mellitus IRON PROFILE Today D50.9 - Iron deficiency anemia, unspecified Hemoglobin A1c Today R73.09 - Other abnormal glucose Comprehensive [place]. Panel Fast Today R73.09 - Other abnormal glucose Vitamin D 25-OH Total Today E55.9 - Vitamin D deficiency, unspecified Complete Blood Count no Diff Today D50.9 - Iron deficiency anemia, unspecified Medications: Changed From ferrous fumarate 325 mg PO BID D50.9 - Iron deficiency anemia, unspecified To ferrous fumarate 325 mg PO BID 60 tabs 3RF 30 days D50.9 - Iron deficiency anemia, unspecified Discontinued doxycycline hyclate Discontinued Reason: Doctor's Order 100 mg PO BID 7 days 14 caps 0RF
--- OUTSIDE RECORDS SUMMARY | 2024-10-01 13:09 | XMS_ITS | Clinical Summary ---
Author Organization [facility] Facility Address [address] [place] [address] Care Team Providers Care Craft Demonstrator Name Role Phone Rome Redmond Primary Care Provider [phone] Allergies Active Allergy Reactions Criticality Noted Date [...] patient's age to complete this topic Insurance [facility] Care Teams Craft Demonstrator Relationship Specialty Start Date End Date Rome Redmond PA [address] [place] [address], [address] [place] [address] PCP - General Physician Manager Medical 01/02/22
== END 2024-10-01 12:20 | disposition home or self-care (01) ==
LOC: HO.HMCH 11:45
PROVIDERS: PCP Physician Assistant; Visit Provider Physician Assistant
DX: D50.9 Iron deficiency anemia, unspecified (principal); R73.09 Other abnormal glucose; K75.81 Nonalcoholic steatohepatitis (NASH)

== ENCOUNTER → 2024-10-01 11:44 | Outpatient (BNVA) | payer OTHER, SELFPAY | PROVIDERS: PCP Physician Assistant; Visit Provider Physician Assistant | DX: D50.9 Iron deficiency anemia, unspecified (principal); R73.09 Other abnormal glucose; K75.81 Nonalcoholic steatohepatitis (NASH) | CPT/HCPCS: 96127; 99212 ==

== ENCOUNTER 2024-12-04 12:54 | Outpatient (AMB) | payer OTHER, SELFPAY ==
--- OUTSIDE RECORDS SUMMARY | 2024-12-04 12:59 | XMS_ITS | Clinical Summary ---
Author Organization [facility] Facility Address [address] [place] [address] Care Team Providers Care Chassis Driver Name Role Phone Rome Redmond Primary Care Provider [phone] Allergies Active Allergy Reactions Criticality Noted Date [...] 19+ 3-dose series) 1996 Influenza Vaccine (#1) 2025 Pneumococcal Vaccine: Peds ( 0 to 5 Years) and At-Risk Patients (6 to 49 Years) Aged Out No longer eligible b ased on patient's age to complete this topic Insurance [facility] Care Teams Chassis Driver Relationship Specialty Start Date End Date Rome Redmond PA [address] [place] [address], [address] [place] [address] PCP - General Physician Heavy Equipment Rental Associate 01/02/22
[2024-12-04 13:03] VITALS: PULSE 100; TEMP 36.9; O2SAT 97; BMI 31.8
--- NOTE | 2024-12-04 13:03 | MHC.OFFWIV ---
Intake Vital Signs 12/04/24 13:03 Height 5 ft 6 in Weight 197 lb 4 oz BMI 31.8 Pulse 100 Pulse Source Pulse Oximeter Temp 98.5 F Temp Source Oral Pulse Oximetry (%) 97 Oxygen Delivery Method Room Air Intake Visit Reasons: EP Ear pain Intake Note: Patient present with right ear pain times 3 days Patient Tobacco Use Status: Never used Tobacco Pharmaceutical Salesperson Required: No Is last menstrual period known: Yes Last menstrual period: 11/22/24 Post menopausal: No Patient : No Allergies ibuprofen Allergy (Severe, Verified 12/04/24 13:07) Swelling aspirin (ASPIRIN) Allergy (Unknown, Verified 12/04/24 13:07) SWELLING Do you need a note to return to daycare/school/sports/work: No HPI HPI Comments History of Present Illness Details History - The patient is a 49-year-old female presenting with right ear pain. - The ear pain began three days ago, with no associated hearing changes, discharge, or fever. - The patient has no prior history of ear conditions and attributes the discomfort to scratching the ear due to itchiness. - Recent travel to [place] was noted, with no reported allergies. Physical Exam General: Cooperative, healthy appearing, comfortable, no acute distress and well developed Orientation: Patient oriented x3 Limitations: No limitations Head: Normal to inspection Ears: Right ear EAC with erythema and white exudate, left EAC normal, TM's with scant fluid bilaterally. hearing grossly normal Nose: Normal External nose present Face and sinus: Normal facial exam Mouth: normal, moist oral mucosa Eyes: Appearance normal, both eyes and all related structures Neck: Normal visual inspection and Yes full ROM Respiratory: Normal respiratory effort and able to speak in complete sentences. Skin: no rashes or lesions noted Neuro: Patient oriented x3 Extremities: moving all extremities normally [facility] Medical History (Updated 12/04/24 @ 13:29 by Jane Funk PA-C) Family history of colorectal cancer Bunion of left foot Urinary frequency Proteinuria delivery delivered Gallbladder polyp Surgical History Hx of colonoscopy Hx of section Hx of cosmetic surgery History of tubal ligation Family History Mother Ovarian cancer Afib Father Prostate cancer Maternal Uncle Colon cancer Social History Household Members: Family Housing: House Alcohol intake: current Alcohol intake frequency: holidays/special occasions only Patient Tobacco Use Status: Never used Tobacco e-Cigarette/Vaping Use: Never Used Second Hand Smoke Exposure: No Patient : No service: No Current occupational status: employed 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 Current occupational exposures/hazards: No Cognitive needs: No Hearing needs: No Vision needs: No Female Reproductive History Menstrual Age of Menarche: 16 Date of last menstrual period: 11/22/24 Review of Systems Const All systems reviewed & are unremarkable except as noted in HPI and below Physical Exam Vital Signs: Last Vital Signs Temp 98.5 F 12/04/24 13:03 Pulse 100 12/04/24 13:03 Pulse Ox 97 12/04/24 13:03 Oxygen Delivery Method Room Air 12/04/24 13:03 BMI result Body Mass Index 31.8 Assessment & Plan Assessment & Plan (1) Right otitis externa: Code(s): H60.91 - Unspecified otitis externa, right ear Qualifiers: Otitis externa type: diffuse Chronicity: acute Qualified Code(s): H60.311 - Diffuse otitis externa, right ear Plan: Patient was informed and verbally consented to the use of an ambient scribe for clinic note documentation during this visit 1. Otitis Externa - Prescribed ear drops to be administered four times a day for one week. - Recommended Benadryl at night to alleviate any potential congestion. Medications: New [id number] 3.5-10,000-1 mg/mL-unit/mL-% 4 drps otic (ear) right QID 10 mL 0RF 7 days Coding Level of Care Code Est Pt Level 3 (87918) Diagnoses Acute diffuse otitis externa of right ear H60.311 Otitis externa type: diffuse Chronicity: acute
== END 2024-12-04 13:38 | disposition home or self-care (01) ==
PROVIDERS: PCP Physician Assistant; Visit Provider Physician Assistant
DX: H60.311 Diffuse otitis externa, right ear (principal)

== ENCOUNTER → 2024-12-04 12:54 | Outpatient (BNVA) | payer OTHER, SELFPAY | PROVIDERS: PCP Physician Assistant; Visit Provider Physician Assistant | DX: H60.311 Diffuse otitis externa, right ear (principal) | CPT/HCPCS: 99212 ==

== ENCOUNTER 2025-01-13 12:46 | Outpatient (REF) | payer OTHER, SELFPAY | END 2025-01-13 12:47 | disposition home or self-care (01) | LOC: HO.LNP 12:46 | PROVIDERS: PCP Physician Assistant; Visit Provider Advanced Practice Midwife | DX: Z01.419 Encounter for gynecological examination (general) (routine) without abnormal findings (principal); D25.0 Submucous leiomyoma of uterus; N93.9 Abnormal uterine and vaginal bleeding, unspecified; N92.1 Excessive and frequent menstruation with irregular cycle; Z20.2 Contact with and (suspected) exposure to infections with a predominantly sexual mode of transmission; Z98.51 Tubal ligation status | CPT/HCPCS: 99212; 99396 ==

== ENCOUNTER 2025-01-13 12:46 | Outpatient (AMB) | payer OTHER, SELFPAY ==
--- NOTE | 2025-01-13 12:48 | A.OFFVIS_ITS ---
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 Receiving Team Member concerns: follow up for recent US ordered by PCP. Regular monthly menses x7-8d, HMB x2-3d., history of anemia. Currently is sexually active. She denies vaginal itching or irritation. Admit to not eating healthy, no regular exercise. FH ovarian (mother) and colon cancer. Last pap smear 2023, negative. Abnormal pap in [facility]. Mammogram: [facility]2024. [facility] Medical History Fibroid Family history of colorectal cancer Bunion of left foot Urinary frequency Proteinuria delivery delivered Gallbladder polyp Surgical History Hx of colonoscopy Hx of section Hx of cosmetic surgery History of tubal ligation Family History Mother Ovarian cancer Afib Father Prostate cancer Maternal Uncle Colon cancer Social History Household Members: Family Housing: House Alcohol intake: current Alcohol intake frequency: holidays/special occasions only Patient Tobacco Use Status: Never used Tobacco e-Cigarette/Vaping Use: Never Used Second Hand Smoke Exposure: No service: No Current occupational status: employed 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 Current occupational exposures/hazards: No Cognitive needs: No Hearing needs: No Vision needs: No Female Reproductive History Menstrual Age of Menarche: 16 Duration of menses: 8-10 days Date of last menstrual period: 12/19/24 control method: permanent sterilization Permanent Sterilization: BTL Total pregnancies: 2 Full term: 2 Number of Living Children: 2 Date of last pap smear: 08/27/23 (neg pap and hpv) Date of Mammogram: 03/20/24 (Birad 1) Review of Systems Const All systems reviewed & are unremarkable except as noted in HPI and below Reports as per HPI Eyes Reports no additional complaints ENT Reports no additional complaints Card Reports no additional complaints Resp Reports no additional complaints GI Reports as per HPI and Reports no additional complaints Reports as per HPI Musc Reports no additional complaints Skin/Breast Reports as per HPI Neuro Reports no additional complaints Psych Reports no additional complaints Endo Reports no additional complaints Aditya/Lymph Reports no additional complaints Aller/Immun Reports no additional complaints Physical Exam Vital Signs: Last Vital Signs BP 114/76 01/13/25 12:50 BMI result Body Mass Index 31.6 Const General: cooperative, healthy appearing, no acute distress, well developed and alert Orientation/consciousness: patient oriented x3 HEENT Head: Yes normal to inspection Eyes General: appearance normal, both eyes and all related structures Neck Neck: Yes normal visual inspection Thyroid: Thyroid normal Chest Chest palpation & inspection: normal inspection of the chest and other (no puckering, dimpling, peau de orange, retraction, discharge, masses) Breast/axilla inspection: normal inspection of the breasts Breast/axilla palpation: normal palpation of the breasts Resp Effort & Inspection: normal respiratory effort GI Inspection: Yes normal to inspection Palpation (GI): Soft to palpation Rectal Exam - Female: deferred General: Yes bladder normal to palpation External Female Exam: normal external appearance and normal appearance of the urethra Speculum Exam - Vagina: normal appearance of the vagina, normal palpation and normal vaginal discharge Speculum Exam - Cervix: normal appearance of the cervix and normal palpation Bimanual exam- vagina & uterus: normal bimanual exam, normal palpation, bladder normal to palpation, normal palpation, non-tender and enlarged Bimanual Exam- Adnexa, other: no masses Skin General skin exam: no rashes or lesions noted Rashes: no rashes Neuro General: patient oriented x3 Cognition (Neuro): normal cognition Extrem General: Yes normal to inspection Psych Attitude: cooperative Thought process: Normal thought process present Results Reviewed Results Reviewed: [facility] [place] [address] Ultrasound Report Signed with Cole Patient: Mariana Bliss MR#: [id number] : 1975 Acct:[id number] Age/Sex: 48 / F ADM Date: 09/23/24 Loc: [facility] Attending Dr: Rome Redmond PA-C Ordering Physician: Rome Redmond PA-C Date of Service: 09/23/24 Procedure(s): US pelvic and transvaginal Accession Number(s): [id number] cc: Rome Redmond PA-C~ ADDENDUMThis document has been electronically signed by: Louisa Harvey MD on 09/25/2024 10:24:46 ADDENDUM: Technique: Transabdominal and transvaginal pelvic ultrasound This document has been electronically signed by: Louisa Harvey MD on 10/06/2024 11:37:22 Addendum Dictated By: Louisa Harvey MD Addendum Signed By: <Electronically signed by Louisa Harvey MD in OV> 10/06/24 1138 Addendum Cosigned By: DD/ /21/1023 TD/TT: 10/06/2405/21/1137 CLINICAL HISTORY: N92.0 - Excessive and frequent menstruation with regular cycle US pelvis transvaginal Comparison: None Findings: Uterus measures 10.4 x 7.1 x 9.6 cm. At least 5 mostly submucosal fibroids. The largest fibroid (which is also submucosal) measures up to 3.5 x 3.2 x3.4 cm. No endometrial lesion, 13 mm thickness. Right ovary 4.1 x 2.3 x 3.2 cm. 19 mm right ovarian corpus luteum cyst. Left ovary not seen and therefore could not be evaluated. No adnexal lesion on the left side. IMPRESSION: Predominantly submucosal uterine fibroids. This document has been electronically signed by: Louisa Harvey MD on 09/25/2024 10:24:46 Dictated By: Louisa Harvey MD Signed By: <Electronically signed by Louisa Harvey MD in OV> 09/25/24 1026 DD/ 1024 TD/TT: 09/25/24 1024 Deicer Repairer Electric: Assessment & Plan Assessment & Plan (1) Well woman exam with routine gynecological exam: Code(s): Z01.419 - Encounter for gynecological examination (general) (routine) without a bnormal findings Category: Medical Plan: Discussed: Current recommendations for pap smears per ASCCP guidelines. Breast awareness and periodic breast exams. Mammogram yearly. Maintain a healthy lifestyle including a well balanced diet and routine exercise. Patient verbalizes understanding and agrees to the plan of care. She was given opportunity to ask questions and all questions were answered to the best of my ability. RTO in one year for annual academic computing director examination. This note is constructed using voice recognition software. While every effort has been made to ensure accuracy, ballistic expert errors may have been included. (2) Fibroid: Code(s): D21.9 - Benign neoplasm of connective and other soft tissue, unspecified Category: Medical Plan: Counseled re: Leiomyoma: common pelvic neoplasm. Differential diagnosis-may include but not limited to- leiomyosarcoma which is a rare uterine sarcoma 3- 7/100,000, difficult to distinguish from fibroids on ultrasound from uterine sarcoma's. Unlikely any single test will have a highly positive predictive value. Hysterectomy is not recommended for sole purpose of excluding malignant neoplasm. Consult for surgical exploration, medical treatment, other treatments, verses expectant management, pros and cons, risks and benefits. Expectant management follow up in 6 months, then yearly for stability. Patient prefers to proceed with expectant management. Referral to MD if indicated for level of care if indicated Report any AUB, pelvic pressure, bloating, or pain. (3) Abnormal uterine bleeding (AUB): Code(s): N93.9 - Abnormal uterine and vaginal bleeding, unspecified Plan Discuss workup for AUB to include endometrial biopsy, labs, and cultures. Preprocedure planning reviewed to take 2 Tylenol with food and fluids 1 hour before her procedure time, anticipatory guidance reviewed. Treatment options for abnormal uterine bleeding reviewed including medical, interventional, and surgical. Mirena IUD booklet provided we will consider insertion at her follow up with biopsy. Preprocedure planning reviewed advised to take 2 Tylenol 1 hour before the procedure with food and fluids. The patient expressed understanding and agreement with the plan of care. All of her questions and concerns were addressed to the best of my ability. Total time I personally spent on visit and management today: ?20 minutes. Time spent included review of pertinent office notes in the electronic health record; review of laboratory and imaging results; review of personal family medical history; performing physical exam; discussing diagnosis and plan of care with the patient; documenting the encounter in the EMR. This note is constructed using voice recognition software. While every effort has been made to ensure accuracy, ballistic expert errors may have been included. Orders: Orders Thyroid Stimulating Hormone Today N92.1 - Excessive and frequent menstruation with irregular cycle US pelvic and transvaginal 03/30/25 D21.9 - Benign neoplasm of connective and other soft tissue, unspecified CT NG by PCR Vag/Cerv Today Z20.2 - Contact with and (suspected) exposure to infections with a predominantly sexual mode of transmission Bacterial Vaginosis Panel Today Z20.2 - Contact with and (suspected) exposure to infections with a predominantly sexual mode of transmission Coding Level of Care Code Est Pt Level 3 (86108) Est Pt Prev Care 40-64y(53744) Diagnoses Well woman exam with routine gynecological exam Z01.419 Fibroid D21.9 Abnormal uterine bleeding (AUB) N93.9
[2025-01-13 12:50] VITALS: BP 114/76; BMI 31.6
--- OUTSIDE RECORDS SUMMARY | 2025-01-13 13:56 | XMS_ITS | Clinical Summary ---
Author Organization [facility] Facility Address [address] [place] [address] Care Team Providers Care Work And Family Life Consultant Name Role Phone Rome Redmond Primary Care Provider [phone] Allergies Active Allergy Reactions Criticality Noted Date [...] patient's age to complete this topic Insurance [facility] Care Teams Work And Family Life Consultant Relationship Specialty Start Date End Date Rome Redmond PA [address] [place] [address], [address] [place] [address] PCP - General Physician Cabinetmaker Helper 01/02/22
== END 2025-01-13 14:46 | disposition home or self-care (01) ==
PROVIDERS: PCP Physician Assistant; Visit Provider Advanced Practice Midwife
DX: Z01.419 Encounter for gynecological examination (general) (routine) without abnormal findings (principal); D25.9 Leiomyoma of uterus, unspecified; N93.9 Abnormal uterine and vaginal bleeding, unspecified
CPT/HCPCS: 99213; 99396; 99459

== ENCOUNTER 2025-01-13 13:29 | Outpatient (REF) | payer OTHER, SELFPAY ==
[2025-01-13 16:55] LABS: Bacterial Vaginosis PCR NEGATIVE (Negative); Candida Group PCR DETECTED (Not Detect); Candida glab krusei PCR NOT DETECTED (Not Detect); Trichomonas vaginalis PCR NOT DETECTED (Not Detect)
[2025-01-13 17:26] LABS: CT PCR NOT DETECTED (Not Detect.); NG PCR NOT DETECTED (Not Detect.)
== END 2025-01-13 13:30 | disposition home or self-care (01) ==
LOC: HO.LAB 13:29
PROVIDERS: Visit Provider Advanced Practice Midwife
DX: Z20.2 Contact with and (suspected) exposure to infections with a predominantly sexual mode of transmission (principal); Z11.3 Encounter for screening for infections with a predominantly sexual mode of transmission; Z11.8 Encounter for screening for other infectious and parasitic diseases
CPT/HCPCS: 81515; 87491; 87591

== ENCOUNTER 2025-02-11 10:17 | Outpatient (REF) | payer OTHER, SELFPAY | END 2025-02-11 10:18 | disposition home or self-care (01) | LOC: HO.LNP 10:17 | PROVIDERS: PCP Physician Assistant; Visit Provider Advanced Practice Midwife | DX: D25.0 Submucous leiomyoma of uterus (principal); N93.9 Abnormal uterine and vaginal bleeding, unspecified; Z32.02 Encounter for pregnancy test, result negative | CPT/HCPCS: 58100; 81025; 88305 ==

== ENCOUNTER 2025-02-11 10:17 | Outpatient (AMB) | payer OTHER, SELFPAY ==
--- NOTE | 2025-02-11 10:33 | MHC.OFFVIS ---
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 History of multiple fibroids. Due for her cycle and a few days. PFSH Medical History Fibroid Family history of colorectal cancer Bunion of left foot Urinary frequency Proteinuria delivery delivered Gallbladder polyp Surgical History Hx of colonoscopy Hx of section Hx of cosmetic surgery History of tubal ligation Family History Mother Ovarian cancer Afib Father Prostate cancer Maternal Uncle Colon cancer Social History Household Members: Family Housing: House Alcohol intake: current Alcohol intake frequency: holidays/special occasions only Patient Tobacco Use Status: Never used Tobacco e-Cigarette/Vaping Use: Never Used Second Hand Smoke Exposure: No service: No Current occupational status: employed 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 Current occupational exposures/hazards: No Cognitive needs: No Hearing needs: No Vision needs: No Female Reproductive History Menstrual Age of Menarche: 16 Review of Systems Const All systems reviewed & are unremarkable except as noted in HPI and below Physical Exam Const General: cooperative, healthy appearing and no acute distress Orientation/consciousness: patient oriented x3 GI Inspection: Yes normal to inspection Palpation (GI): Soft to palpation and Other GI palpation findings present (Nontender) Rectal Exam - Female: visual inspection normal General: Yes bladder normal to palpation External Female Exam: normal appearance of the urethra Speculum Exam - Vagina: normal appearance of the vagina, normal palpation and normal vaginal discharge Speculum Exam - Cervix: normal appearance of the cervix and normal palpation Bimanual exam- vagina & uterus: normal bimanual exam, normal palpation, uterine size normal, bladder normal to palpation, normal palpation, uterine shape normal and non-tender Bimanual Exam- Adnexa, other: normal adnexae Neuro General: patient oriented x3 Office Procedures Endometrial Biopsy Details: The patient is here today for an endometrial biopsy due to AUB to rule out any pathology including atypical, hyperplasia or cancer cells of the uterus. She was counseled regarding anticipatory guidance for the procedure including the risks for pain, infection, bleeding, perforation, potential injury to the tissues may include the cervix, uterus, tubes, bladder and bowels. These injuries may include further treatment and evaluation including surgery, blood transfusions, antibiotics, hospitalizations and anesthesia. Permanent injury and scarring can occur. She was consented for the procedure, and the consent forms were signed. She is agreeable to have the procedure today. All questions were answered. Endometrial Biopsy Procedure: The patient was placed in the dorsal lithotomy position and a sterile speculum inserted. Using aseptic technique for the procedure. The cervix was cleansed with Betadine x 3 swabs. A single toothed tenaculum was placed on the cervix for stabilization and the uterus was sounded to 9 cm with a 4mm pipelle, and tissue sample obtained. Minimal bleeding was observed. The tissue sample was placed in formalin in a patient labeled container by staff assisting and sent to the pathology department for processing and interpretation. The patient tolerate the procedure well and was in good condition when leaving the department. Endometrial Biopsy Post Procedure Care: Nothing in the vagina including: tampons, douching or intimacy until all the bleeding has subsided. There may be some post procedure bleeding for several days, this bleeding is usually light and may turn to a light brown or pink color. Mild cramps may occurs. Nothing in the vaginal including: tampons, douching, or intimacy until all the bleeding has subsided. You may take an over the counter mild analgesic such as Tylenol or Advil (if no allergies) per the manufactures recommendation on dosing, frequency, and follow the directions completely. Call the office if any: fever (over 100.4), flu like symptoms, abdominal pain (worse than cramping), foul smelling, infected appearing vaginal discharge, or heavy bleeding. If indicated: Use condoms to prevent and STI's, and only after the bleeding has stopped completely. Return to the office in 2 weeks for results and plan of care. This note is constructed using voice recognition software. While every effort has been made to ensure accuracy, orthotist/prosthetist errors may have been included. 28332-Fotoyyrxqrr Biopsy Results AMB Test Urine AMB Test Urine Negative Last Edit by SANDY Saldaña on 02/11/25 10:35 Results Reviewed Results Reviewed: Laboratory Last Values [facility]st Clinic Negative 02/11/25 10:34 [facility] [place] [address] Ultrasound Report Signed with Addenda Patient: Mariana Bliss MR#: [id number] : 1975 Acct:[id number] Age/Sex: 48 / F ADM Date: 09/23/24 Loc: [facility] Attending Dr: Rome Redmond PA-C Ordering Physician: Rome Redmond PA-C Date of Service: 09/23/24 Procedure(s): US pelvic and transvaginal Accession Number(s): [id number] cc: Rome Redmond PA-C~ ADDENDUMThis document has been electronically signed by: Louisa Harvey MD on 09/25/2024 10:24:46 ADDENDUM: Technique: Transabdominal and transvaginal pelvic ultrasound This document has been electronically signed by: Louisa Harvey MD on 10/06/2024 11:37:22 Addendum Dictated By: Louisa Harvey MD Addendum Signed By: <Electronically signed by Louisa Harvey MD in OV> 10/06/241137 Addendum Cosigned By: DD/ /21/1023 TD/TT: 10/06/2405/21/1137 CLINICAL HISTORY: N92.0 - Excessive and frequent menstruation with regular cycle US pelvis transvaginal Comparison: None Findings: Uterus measures 10.4 x 7.1 x 9.6 cm. At least 5 mostly submucosal fibroids. The largest fibroid (which is also submucosal) measures up to 3.5 x 3.2 x3.4 cm. No endometrial lesion, 13 mm thickness. Right ovary 4.1 x 2.3 x 3.2 cm. 19 mm right ovarian corpus luteum cyst. Left ovary not seen and therefore could not be evaluated. No adnexal lesion on the left side. IMPRESSION: Predominantly submucosal uterine fibroids. This document has been electronically signed by: Louisa Harvey MD on 09/25/2024 10:24:46 Dictated By: Louisa Harvey MD Signed By: <Electronically signed by Louisa Harvey MD in OV> 09/25/24 1026 DD/ 1024 TD/TT: 09/25/24 1024 Typewriter Operator Automatic: Assessment & Plan Assessment & Plan (1) Fibroid: Code(s): D21.9 - Benign neoplasm of connective and other soft tissue, unspecified Category: Medical Plan: Discussed: Ultrasound findings- Uterus measures 10.4 x 7.1 x 9.6 cm. At least 5 mostly submucosal fibroids. The largest fibroid (which is also submucosal) measures up to 3.5 x 3.2 x3.4 cm. No endometrial lesion, 13 mm thickness. Right ovary 4.1 x 2.3 x 3.2 cm. 19 mm right ovarian corpus luteum cyst. Left ovary not seen and therefore could not be evaluated. No adnexal lesion on the left side. IMPRESSION: Predominantly submucosal uterine fibroids. Counseled re: Leiomyoma: common pelvic neoplasm. Differential diagnosis-may include but not limited to- leiomyosarcoma which is a rare uterine sarcoma 3-7/100,000, difficult to distinguish from fibroids on ultrasound from uterine sarcoma's. Unlikely any single test will have a highly positive predictive value. Hysterectomy is not recommended for sole purpose of excluding malignant neoplasm. Consult for surgical exploration, medical treatment, other treatments, verses expectant management, pros and cons, risks and benefits. Expectant management follow up in 6 months, then yearly for stability. Patient prefers to proceed with expectant management. Referral to MD if indicated for level of care if indicated. Considering at this visit embolization for fibroid therapy Report any AUB, pelvic pressure, bloating, or pain. Patient is undecided for treatment plan at this time, leaning towards having a Mirena IUD inserted, final discussion and decision making at next visit for interventional radiology referral or monitoring in six-month. Total time I personally spent on visit and management today: ?20 minutes. Time spent included review of pertinent office notes in the electronic health record; review of laboratory and imaging results; review of personal family medical history; performing physical exam; discussing diagnosis and plan of care with the patient; documenting the encounter in the EMR. (2) Abnormal uterine bleeding: Code(s): N93.9 - Abnormal uterine and vaginal bleeding, unspecified Plan Endometrial biopsy procedure completed today. See procedure notes. Counseled regarding medical treatment options including gold standard Mirena IUD, Mirena booklet provided, uterine fibroid treatment discussed including uterine embolization with interventional radiology, she will consider her options but is leaning towards having the Mirena IUD placed with her next appointment for results. IUD preprocedure anticipatory guidance reviewed advised to have something to eat and drink and take 3 Advil with food and fluids 1 hour before her appointment time. The patient expressed understanding and agreement with the plan of care. All of her questions and concerns were addressed to the best of my ability. This note is constructed using voice recognition software. While every effort has been made to ensure accuracy, orthotist/prosthetist errors may have been included. Orders: Orders AMB HCG Urine Test Today Z32.02 - Encounter for test, result negative Surgical Today N93.9 - Abnormal uterine and vaginal bleeding, unspecified Coding Level of Care Code Est Pt Level 2 (61686) Procedure Only Diagnoses Fibroid D21.9 Abnormal uterine bleeding N93.9 CPT Codes Endometrial Biopsy - CPT: 07814-Xqaiqaqhnia Biopsy ([id number])
--- OUTSIDE RECORDS SUMMARY | 2025-02-11 12:31 | XMS_ITS | Clinical Summary ---
Author Organization [facility] Facility Address [address] [place] [address] Care Team Providers Care Sample Mounter Name Role Phone Rome Redmond Primary Care Provider [phone] Allergies Active Allergy Reactions Criticality Noted Date [...] patient's age to complete this topic Insurance [facility] Care Teams Sample Mounter Relationship Specialty Start Date End Date Rome Redmond PA [address] [place] [address], [address] [place] [address] PCP - General Physician Vendor Management Specialist 01/02/22
== END 2025-02-11 11:39 | disposition home or self-care (01) ==
LOC: HO.HWS 10:17
PROVIDERS: PCP Physician Assistant; Visit Provider Advanced Practice Midwife
DX: N93.9 Abnormal uterine and vaginal bleeding, unspecified (principal); Z32.02 Encounter for pregnancy test, result negative
CPT/HCPCS: 58100

== ENCOUNTER 2025-02-25 09:03 | Outpatient (AMB) | payer OTHER, SELFPAY ==
[2025-02-25 09:10] VITALS: BP 140/90; BMI 31.6
--- NOTE | 2025-02-25 09:10 | A.OFFVIS_ITS ---
Vital Signs 02/25/25 09:10 Height 5 ft 6 in Weight 196 lb BMI 31.6 BP 140/90 H Intake Visit Reasons: EMB Results/Mirena Insertion House Calls Nurse Practitioner: House Calls Nurse Practitioner Present Allergies ibuprofen Allergy (Severe, Verified 02/25/25 09:10) Swelling aspirin (ASPIRIN) Allergy (Unknown, Verified 02/25/25 09:10) SWELLING Is last menstrual period known: Yes Last menstrual period: 02/17/25 HPI Comments Details: Patient is here today for a follow up endometrial biopsy results and possible Mirena IUD insertion. History of AUB. Prefers not to have the Mirena IUD at this time, would like a referral to Interventional Radiology for treatment of fibroid. [facility] Medical History Fibroid Family history of colorectal cancer Bunion of left foot Urinary frequency Proteinuria delivery delivered Gallbladder polyp Surgical History Hx of colonoscopy Hx of section Hx of cosmetic surgery History of tubal ligation Family History Mother Ovarian cancer Afib Father Prostate cancer Maternal Uncle Colon cancer Social History Household Members: Family Housing: House Alcohol intake: current Alcohol intake frequency: holidays/special occasions only Patient Tobacco Use Status: Never used Tobacco e-Cigarette/Vaping Use: Never Used Second Hand Smoke Exposure: No service: No Current occupational status: employed 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 Current occupational exposures/hazards: No Cognitive needs: No Hearing needs: No Vision needs: No Female Reproductive History Menstrual Age of Menarche: 16 Date of last menstrual period: 02/17/25 Review of Systems Const All systems reviewed & are unremarkable except as noted in HPI and below Endo Reports no additional complaints Physical Exam Vital Signs: Last Vital Signs BP 140/90 H 02/25/25 09:10 BMI result Body Mass Index 31.6 Const General: cooperative, healthy appearing and no acute distress Psych Appearance: well kempt Attitude: cooperative Thought process: Normal thought process present Results AMB Test Urine AMB Test Urine Negative Last Edit by SANDY Saldaña on 02/25/25 09:13 Results Reviewed Results Reviewed: Name: Mariana Bliss Age/Sex: 49/F Attending: Anu Angulo CNM : 1975 Submitted by: Anu Angulo CNM Copies to: Rome Redmond PA-C MR #: [id number] Status: DEP REF Collected: 02/11/25 Location: [facility] Received: 02/11/25 Diagnosis Endometrium, biopsy: Mid-to-late secretory endometrium; negative for atypia, hyperplasia or malignancy. Clinical History AUB Microscopic Description Microscopic sections reviewed. Material Received Endometrial biopsy Gross Description Received in formalin labeled ?endometrial biopsy? are cylindrical portions of pink soft tissue mixed with mucus and clotted blood forming an aggregate measuring 2.8 x 2.0 x 0.3 cm which is wrapped in lens paper and entirely submitted for microscopic examination, multiple pieces in cassettes A1 and A2. ([facility]) Copies To Rome Redmond PA-C [facility],[place] [address] [place] [address] Anu Angulo CNM [facility] [address] [place] [address] NOTE: Unless otherwise stated, all tissue is formalin-fixed and paraffin- embedded. Some or all of the immunohistochemical tests reported herein may have been developed and their performance characteristics determined by [facility]. They have not been cleared or approved by the U.S. Food and Drug Administration (FDA). However, the FDA has determined that such clearance or approval is not necessary. This laboratory is certified under the Clinical Laboratory Improvement Amendments of 1988 (CLIA) as qualified to perform high complexity clinical laboratory testing. Electronically Signed By: Susana Acosta MD 02/12/25 [id number] Patient: Mariana Bliss Age/Sex: 49/F MR#: [id number] Page 1 of 1 Assessment & Plan Assessment & Plan (1) Fibroid: Code(s): D21.9 - Benign neoplasm of connective and other soft tissue, unspecified Category: Medical Plan: Reviewed previous pelvic ultrasound findings with submucosal fibroid, patient was counseled on her options for cycle control including IUD-Mirena, OCPs and other control. She prefers to have a consult for the fibroid treatment before final decision making on cycle control medications. Advised to call if there is any significant changes, or symptoms such as lightheadedness, dizziness, shortness of breath, feelings of onset of syncope. The patient expressed understanding and agreement with the plan of care. All of her questions and concerns were addressed to the best of my ability. (2) Abnormal uterine bleeding (AUB): Code(s): N93.9 - Abnormal uterine and vaginal bleeding, unspecified Category: Medical Plan Plan to obtain updated labs to check her anemia, and obtained prior TSH order placed. Await results for final plan of care. Follow up pending radiology consult for decision making on management of bleeding and fibroids. The patient expressed understanding and agreement with the plan of care. All of her questions and concerns were addressed to the best of my ability. This note is constructed using voice recognition software. While every effort has been made to ensure accuracy, nuclear reactor engineer errors may have been included. Orders: Orders AMB HCG Urine Test Today N92.0 - Excessive and frequent menstruation with regular cycle, Z32.02 - Encounter for test, result negative Referrals Interventional Radiology Referral D21.9 - Benign neoplasm of connective and other soft tissue, unspecified, N93.9 - Abnormal uterine and vaginal bleeding, unspecified Coding Level of Care Code Est Pt Level 3 (85493) Diagnoses Fibroid D21.9 Abnormal uterine bleeding (AUB) N93.9
--- OUTSIDE RECORDS SUMMARY | 2025-02-25 09:44 | XMS_ITS | Clinical Summary ---
Author Organization [facility] Facility Address [address] [place] [address] Care Team Providers Care Performance Improvement Coordinator Name Role Phone Rome Redmond Primary Care Provider [phone] Allergies Active Allergy Reactions Criticality Noted Date [...] patient's age to complete this topic Insurance [facility] Care Teams Performance Improvement Coordinator Relationship Specialty Start Date End Date Rome Redmond PA [address] [place] [address], [address] [place] [address] PCP - General Physician Container Crane Operator 01/02/22
== END 2025-02-25 09:46 | disposition home or self-care (01) ==
PROVIDERS: PCP Physician Assistant; Visit Provider Advanced Practice Midwife
DX: Z32.02 Encounter for pregnancy test, result negative (principal); N92.0 Excessive and frequent menstruation with regular cycle; D21.9 Benign neoplasm of connective and other soft tissue, unspecified; N93.9 Abnormal uterine and vaginal bleeding, unspecified
CPT/HCPCS: 99213

== ENCOUNTER → 2025-02-25 09:03 | Outpatient (BNVA) | payer OTHER, SELFPAY | PROVIDERS: PCP Physician Assistant; Visit Provider Advanced Practice Midwife | DX: D21.9 Benign neoplasm of connective and other soft tissue, unspecified (principal); N93.9 Abnormal uterine and vaginal bleeding, unspecified | CPT/HCPCS: 81025; 99212 ==

== ENCOUNTER 2025-04-06 08:30 | Outpatient (REF) | payer OTHER, SELFPAY ==
--- OUTSIDE RECORDS SUMMARY | 2025-04-06 08:51 | XMS_ITS | Clinical Summary ---
Author Organization [facility] Facility Address [address] [place] [address] Care Team Providers Care Sheriff'S Officer Name Role Phone Rome Redmond Primary Care Provider [phone] Allergies Active Allergy Reactions Criticality Noted Date [...] patient's age to complete this topic Insurance [facility] Care Teams Sheriff'S Officer Relationship Specialty Start Date End Date Rome Redmond PA [address] [place] [address], [address] [place] [address] PCP - General Physician Butcher Apprentice 01/02/22
[2025-04-06 09:01] LABS: Hematocrit 37.9 % (37.0-47.0); Hemoglobin 11.6 g/dl (12.0-16.0); Mean Corpuscular HGB Conc 30.6 g/dl (31.0-35.0); Mean Corpuscular Hemoglobin 24.8 pg (27.0-33.0); Mean Corpuscular Volume 81.0 fL (80.0-98.0); NRBC Abs Auto 0.000 X10*3/uL (0.0-0.012); NRBC Pct Auto 0.0 /100WBC (0.0-0.2); Platelet Count 299 X10*3/uL (160-400); Red Blood Count 4.68 X10*6/uL (4.20-5.50); White Blood Count 12.7 X10*3/uL (4.8-10.8)
[2025-04-06 09:28] LABS: Alanine Aminotransferase 93 U/L (0-31); Albumin Level 4.6 g/dL (3.5-5.0); Alkaline Phosphatase 67 U/L (39-117); Anion Gap 16 (12-20); Aspartate Amino Transferase 59 U/L (5-31); Blood Urea Nitrogen 11 mg/dL (9-16); Calcium 9.3 mg/dL (8.4-10.2); Carbon Dioxide 19 mmol/L (22-29); Chloride 106 mmol/L (96-108); Estimated Glomerular Filt Rate > 60; Iron 52 mcg/dL (30-160); Percent Iron Saturation 15 % (15-50); Potassium 4.1 mmol/L (3.3-5.1); Sodium 137 mmol/L (135-145); Total Iron Binding Capacity 344 mcg/dL (228-428); Total Protein 7.6 g/dL (6.5-8.0); Unsaturated Iron Binding 292 ug/dL
[2025-04-06 09:39] LABS: Syphilis Screen Nonreactive (Nonreactive)
[2025-04-06 09:44] LABS: HBsAGNum1 0.30 S/CO (0.00-0.99); HIV Num 1 0.06 S/CO (0.00-0.99); Hepatitis B Surface Antigen Negative (Negative); ~HepC Num1 0.11 S/CO (0.00-0.79); ~Hepatitis C Antibody Nonreactive (Nonreactive)
[2025-04-06 09:52] LABS: Thyroid Stimulating Hormone 3.85 uIU/mL (0.32-4.0)
== END 2025-04-06 08:31 | disposition home or self-care (01) ==
LOC: HO.LAB 08:30
PROVIDERS: Obstetrics & Gynecology; Absent Provider Physician Assistant; PCP Physician Assistant; Visit Provider Advanced Practice Midwife
DX: Z11.4 Encounter for screening for human immunodeficiency virus [HIV] (principal); Z20.2 Contact with and (suspected) exposure to infections with a predominantly sexual mode of transmission; Z20.6 Contact with and (suspected) exposure to human immunodeficiency virus [HIV]; Z11.59 Encounter for screening for other viral diseases; N92.1 Excessive and frequent menstruation with irregular cycle; D50.9 Iron deficiency anemia, unspecified; E55.9 Vitamin D deficiency, unspecified; R73.09 Other abnormal glucose
CPT/HCPCS: 36415; 80053; 82306; 83036; 83540; 84443; 85027; 86780; 86803; 87340; 87389

== ENCOUNTER 2025-04-08 09:25 | Outpatient (AMB) | payer OTHER, SELFPAY ==
[2025-04-08 09:31] VITALS: BP 142/90; PULSE 99; TEMP 36.2; O2SAT 96; BMI 32.2
--- NOTE | 2025-04-08 09:31 | MHC.PC.OV ---
Vital Signs 04/08/25 09:31 Height 5 ft 6 in Weight 199 lb 8 oz BMI 32.2 BP 142/90 H Blood Pressure Location Lt brachial Position Sitting Pulse 99 Pulse Source Pulse Oximeter Temp 97.1 F Temp Source Temporal Artery Scan Pulse Oximetry (%) 96 Oxygen Delivery Method Room Air Intake Visit Reasons: Annual Exam Allergies ibuprofen Allergy (Severe, Verified 04/08/25 09:44) Swelling aspirin (ASPIRIN) Allergy (Unknown, Verified 04/08/25 09:44) SWELLING Tobacco use date assessed: 04/08/25 Dental Screening Dental Screen Date: 04/08/25 Did you have a dental visit in the last 12 months?: Yes Did you have a dental problem in the last 6 months where you did not have access to dental care?: No Was dental information given to patient?: Patient has dentist HPI Annual Exam HPI Details Patient is a 49-year-old female here today for a follow-up visit. Patient has a past medical history significant for GERD, type 2 diabetes, fatty liver disease, class 1 obesity, proteinuria. . Iron deficiency anemia: Was on iron supplementation previously in her hemoglobin had normalized. She has been taking 2 tablets of her iron supplementation. Most recent CBC seems to have stabilized, of note did note a mild leukocytosis Of note uterine ultrasound showed multiple fibroids. .. RAM: Laboratory results also show an elevated ALT of 93 U/L, increased from the 40s on previous checks, and an AST of 59 U/L. She has a history of a gallbladder polyp found on a 2021 abdominal ultrasound but denies any associated pain. Her sister has a history of fatty liver disease. The patient denies any alcohol consumption. .. New onset type 2 diabetes : Most recent A1c is 7.2 from 6.2. She does admit to dietary indiscretion. PLAN: Will work on lifestyle and dietary modifications over the next 3 months and if A1c remains above 6.5 will consider metformin .. Hypovitaminosis: Her vitamin D level has increased from 16 to 84 ng/mL. She has been taking a weekly 50,000 IU vitamin D supplement, although she admits to inconsistent adherence. She also takes two iron pills daily. .. Uterine fibroids: For management of heavy periods due to uterine fibroids, her data recovery planner presented three options: oral contraceptive pills, an IUD, or uterine artery embolization. She is reluctant to use hormonal options due to concerns about weight gain and is considering embolization, despite the risk of inducing menopause. Laboratory Tests 08/02/23 07/18/24 12/04/24 11:03 08:35 12:13 WBC 10.6 Fasting Glucose Hemoglobin A1c % 5.9 6.2 H AST 25 ALT 25-OH Vitamin D To anish 04/06/25 08:48 WBC 12.7 H Fasting Glucose 168 H Hemoglobin A1c % 7.2 H AST 59 H ALT 93 H 25-OH Vitamin D To anish 84.8 PFSH Medical History (Updated 04/08/25 @ 10:19 by Rome Redmond PA-C) Abnormal uterine bleeding (AUB) Fibroid Fibroid Family history of colorectal cancer Bunion of left foot Urinary frequency Proteinuria delivery delivered Gallbladder polyp Surgical History Hx of colonoscopy Hx of section Hx of cosmetic surgery History of tubal ligation Family History Mother Ovarian cancer Afib Father Prostate cancer Maternal Uncle Colon cancer Social History Household Members: Family Housing: House Alcohol intake: current Alcohol intake frequency: holidays/special occasions only Patient Tobacco Use Status: Never used Tobacco e-Cigarette/Vaping Use: Never Used Second Hand Smoke Exposure: No service: No Current occupational status: employed 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 1. Little interest or pleasure in doing things: not at all 2. Feeling down, depressed, or hopeless: not at all 3. Trouble falling or staying asleep, or sleeping too much: not at all 4. Feeling tired or having little energy: not at all 5. Poor appetite or overeating: not at all 6. Feeling bad about yourself - or that you are a failure or have let yourself or your family down: not at all 7. Trouble concentrating on things, such as reading the newspaper or watching television: not at all 8. Moving or speaking so slowly that other people could have noticed. Or the opposite - being so fidgety or restless that you have been moving around a lot more than usual: not at all 9. Thoughts that you would be better off or of hurting yourself in some way: not at all Total score: 0 Depression Screening Interpretation: Negative Depression Screening Done: Yes Source: Developed by Drs. Rocco Velasquez, Isi Rodriguez, Arian Mehta and colleagues, with an educational marsha from [employer]. Thrive Questionnaire Date Thrive assessed: 10/01/24 I am a: Patient What is your living situation today?: I have a steady place to live Within the past 12 months, did the food you bought not last and you didn't have the money to get more?: Never true Within the past 12 months, did you worry whether your food would run out before you got money to buy more?: Never true Do you have trouble paying for medicines?: No Do you have trouble getting transportation to medical appointments?: No Do you have trouble paying your heating and electricity bill?: No Do you have trouble taking care of your child, family member or friend?: No Do you have trouble with day-to-day activities such as bathing, preparing meals, shopping, managing finances, etc.?: No Are you currently unemployed and looking for a job?: No Are you interested in more education?: No Please select the resources that you would like help with: None Currently or been in a relationship where the following occur: No concerns reported THRIVE Score: 0 AUDIT C Alcohol Use Questionnaire (AUDIT-C) 1. How often do you have a drink containing alcohol?: Monthly or less 2. How many drinks containing alcohol do you have on a typical day when you are drinking?: 3 or 4 3. How often do you have six or more drinks on one occasion?: Never Total Score: 2 ABDOULAYE-7 AMB Questionnaire ABDOULAYE-7 Date ABDOULAYE - 7 assessed: 07/23/24 Feeling nervous, anxious, or on edge: 0 = Not at all Not being able to stop or control worryin = Not at all Worrying too much about different things: 0 = Not at all Trouble relaxin = Not at all Being so restless that it is hard to sit still: 0 = Not at all Becoming easily annoyed or irritable: 0 = Not at all Feeling afraid as if something awful might happen: 0 = Not at all Total ABDOULAYE-7 score (0-4 normal; 5-9 mild; 10-14 moderate; 15-21 severe): 0 Source: Developed by Drs. Rocco Velasquez, Isi Rodriguez, Arian Mehta and colleagues, with an educational marsha from [employer]. Review of Systems Const Denies headache(s) Eyes Denies loss of vision ENT Denies vertigo, Denies dizziness, Denies headache(s) and Denies sore throat Card Denies chest pain, Denies leg edema and Denies lightheadedness Resp Denies cough, Denies hemoptysis and Denies wheezing GI Denies abdominal pain, Denies melena, Denies constipation, Denies diarrhea and Denies vomiting Denies urinary frequency, Denies dysuria and Denies urinary urgency Musc Denies arthralgias, Denies joint swelling, Denies numbness and Denies tingling Neuro Denies Abnormal speech present, Denies behavioral changes, Denies vertigo, Denies dizziness, Denies headache(s), Denies loss of vision, Denies memory loss, Denies numbness and Denies tingling Psych Denies anxiety, Denies behavioral changes, Denies depression, Denies memory loss and Denies panic attacks Aditya/Lymph Denies easy bleeding and Denies easy bruising Aller/Immun Denies wheezing Physical exam (Primary Care) Vital Signs: Last Vital Signs Temp 97.1 F 04/08/25 09:31 Pulse 99 04/08/25 09:31 BP 142/90 H 04/08/25 09:31 Pulse Ox 96 04/08/25 09:31 Oxygen Delivery Method Room Air 04/08/25 09:31 BMI result Body Mass Index 32.2 BMI Assessment/Plan discussion: High BMI High, discussed plan: lifestyle, weight reduction, dietary and physical activity Tobacco/Smoking Status: Tobacco use Status Tobacco use date assessed 04/08/25 04/08/25 09:33 Patient Tobacco Use Status Never used Tobacco 04/08/25 09:31 Tobacco use type 12/03/24 11:48 e-Cigarette/Vaping Use Never Used 04/08/25 09:31 PHQ-9: PHQ-9 Score PHQ-9: Total score 0 04/08/25 10:16 Depression Screening Interpretation: Negative Thrive Assessment: Date of Thrive Assessment Date Thrive assessed 10/01/24 04/08/25 09:31 Currently or been in a relationship where the following occur: No concerns reported Const General: healthy appearing, no acute distress, alert and awake Nutritional Appearance: well nourished Orientation/consciousness: oriented to person, oriented to place and oriented to time HENMT Ears: TM's normal bilaterally General nose exam: Normal nasal mucous membranes and turbinates present Eyes Conjunctivae: conjunctivae normal Sclerae: sclerae normal Pupils: Equal, round and reactive pupils present Neck Neck: Yes no lymphadenopathy and Yes no JVD Thyroid: Thyroid normal Carotids: no bruits Resp Effort & Inspection: normal respiratory effort and not tachypneic Auscultation: no crackles, no rales, no rhonchi and no wheezes Cardio Rate: regular rate Rhythm: regular rhythm Heart sounds: no murmurs and normal S1 and S2 GI Palpation (GI): Soft to palpation, nontender, no hepatomegaly and no splenomegaly Auscultation: normal bowel sounds Skin General skin exam: no rashes or lesions noted and dry skin Neuro General: oriented to person, oriented to place and oriented to time Cranial nerves: Yes Equal, round and reactive pupils present Speech: No Abnormal speech present Gait exam (Neuro): Normal gait present Motor exam (neuro): no tremor noted Extrem Right upper extremity: full ROM Left upper extremity: full ROM Right lower extremity: full ROM; no edema Left lower extremity: full ROM; no edema Psych Mental Status: mental status grossly normal Speech and movement: Normal speech and movement present Affect: normal affect Attitude: cooperative Thought process: Normal thought process present Coding Level of Care Code Est Pt Level 4 (75273) Diagnoses Type 2 diabetes mellitus with hyperglycemia, without long-term current use of insulin E11.65 Diabetes mellitus complication status: with hyperglycemia Diabetes mellitus esthetician facialist insulin use: without esthetician facialist use Fatty liver K76.0 Bilateral hand pain M79.641; M79.642 Gallbladder polyp K82.4 Fibroid D21.9 Assessment & Plan Assessment & Plan (1) DMII (diabetes mellitus, type 2): Code(s): E11.9 - Type 2 diabetes mellitus without complications Category: Medical Qualifiers: Diabetes mellitus complication status: with hyperglycemia Diabetes mellitus esthetician facialist insulin use: without esthetician facialist use Qualified Code(s): E11.65 - Type 2 diabetes mellitus with hyperglycemia Plan: Patient appears to have new onset type 2 diabetes. We did discuss perhaps starting oral antihyperglycemic medication though she would like to hold off on this and extensively work on dietary modifications . Will recheck fasting blood sugar and A1c in 3 months and if still above 6.5 for an A1c will consider strongly starting medication. (2) Fatty liver: Code(s): K76.0 - Fatty (change of) liver, not elsewhere classified Category: Medical Plan: FIB4 score- 0.26- low risk for liver fibrosis For management of newly diagnosed type 2 diabetes (A1c 7.2%) and nonalcoholic fatty liver disease (elevated ALT/AST), the primary plan is intensive lifestyle modification. The patient is advised to reduce carbohydrate and sugar intake, manage portion sizes, and engage in cardiovascular exercise for 30 minutes, 3-4 times weekly. An abdominal ultrasound will be ordered to re-evaluate the liver and the previously noted gallbladder polyp. Follow-up labs, including a repeat A1c, will be performed in three months. (3) Bilateral hand pain: Code(s): M79.641 - Pain in right hand; M79.642 - Pain in left hand Category: Medical Plan: To evaluate the patient's finger pain, X-rays of both hands will be ordered to assess for arthritis or other pathologies. (4) Gallbladder polyp: Code(s): K82.4 - Cholesterolosis of gallbladder Category: Medical Plan: Patient has a history of a gallbladder polyp in the setting also of elevated liver enzymes and fatty liver disease. She is interested in getting another ultrasound of her abdomen to eval her gallbladder polyp and her fatty liver disease. (5) Fibroid: Code(s): D21.9 - Benign neoplasm of connective and other soft tissue, unspecified Category: Medical Plan: To assist with decision-making for her heavy menses secondary to uterine fibroids, a follicle-stimulating hormone (FSH) level will be checked to evaluate her menopausal status. Orders: Orders Vitamin D 25-OH Total Today K75.81 - Nonalcoholic steatohepatitis (RAM) US abdomen complete Today K76.0 - Fatty (change of) liver, not elsewhere classified, K82.4 - Cholesterolosis of gallbladder XR Hand Luke 2V Today M79.641 - Pain in right hand, M79.642 - Pain in left hand Follicle Stimulating Hormone Today D21.9 - Benign neoplasm of connective and other soft tissue, unspecified Comprehensive [place]. Panel Fast Today E11.65 - Type 2 diabetes mellitus with hyperglycemia Complete Blood Count no Diff Today E11.65 - Type 2 diabetes mellitus with hyperglycemia Lipid Panel Today E11.65 - Type 2 diabetes mellitus with hyperglycemia Medications: New cholecalciferol (vitamin D3) 50 mcg PO DAILY 90 caps 1RF 90 days E55.9 - Vitamin D deficiency, unspecified Discontinued cholecalciferol (vitamin D3) Discontinued Reason: Doctor's Order 1,250 mcg PO QWEEK 12 weeks 12 caps 1RF R79.89 - Other specified abnormal findings of blood chemistry
--- OUTSIDE RECORDS SUMMARY | 2025-04-08 10:23 | XMS_ITS | Clinical Summary ---
Author Organization [facility] Facility Address [address] [place] [address] Care Team Providers Care Java Manager Name Role Phone Rome Redmond Primary Care Provider [phone] Allergies Active Allergy Reactions Criticality Noted Date [...] patient's age to complete this topic Insurance [facility] Care Teams Java Manager Relationship Specialty Start Date End Date Rome Redmond PA [address] [place] [address], [address] [place] [address] PCP - General Physician Hired Hand 01/02/22
== END 2025-04-08 10:28 | disposition home or self-care (01) ==
LOC: HO.HMCH 09:26
PROVIDERS: PCP Physician Assistant; Visit Provider Physician Assistant
DX: E11.65 Type 2 diabetes mellitus with hyperglycemia (principal); K76.0 Fatty (change of) liver, not elsewhere classified; M79.641 Pain in right hand; M79.642 Pain in left hand; K82.4 Cholesterolosis of gallbladder; D21.9 Benign neoplasm of connective and other soft tissue, unspecified

== ENCOUNTER → 2025-04-08 09:25 | Outpatient (BNVA) | payer OTHER, SELFPAY | PROVIDERS: PCP Physician Assistant; Visit Provider Physician Assistant | DX: E11.65 Type 2 diabetes mellitus with hyperglycemia (principal); K21.9 Gastro-esophageal reflux disease without esophagitis; D50.9 Iron deficiency anemia, unspecified; K75.81 Nonalcoholic steatohepatitis (NASH); E55.9 Vitamin D deficiency, unspecified; M79.641 Pain in right hand; M79.642 Pain in left hand; K82.4 Cholesterolosis of gallbladder; D21.9 Benign neoplasm of connective and other soft tissue, unspecified; R79.89 Other specified abnormal findings of blood chemistry; E66.01 Morbid (severe) obesity due to excess calories; Z68.32 Body mass index [BMI] 32.0-32.9, adult | CPT/HCPCS: 99212 ==